=== PATIENT | female | born 1930 | race Caucasian/White ===

== ENCOUNTER 2017-08-28 10:32 | Emergency (ER) | payer MEDICARE, OTHER ==
[~2017-08-28] VITALS: Ht 162.6 cm; Wt 67.1 kg
[2017-08-28] MEDS ORDERED: LEVOTHYROXINE88 MCG PO (10:58)
[2017-08-28] MEDS ORDERED: MELOXICAM7.5 MG PO (12:42)
[2017-08-28] MEDS ORDERED: BACTRIM DS TAB1 EACH PO (12:42)
== END 2017-08-28 12:45 | disposition home or self-care (01) ==
LOC: ED 10:32
DX: M79.671 Pain in right foot (principal); L03.115 Cellulitis of right lower limb; M17.11 Unilateral primary osteoarthritis, right knee; E03.9 Hypothyroidism, unspecified; Z87.891 Personal history of nicotine dependence; Z79.899 Other long term (current) drug therapy
CPT/HCPCS: 73610; 80048; 85025; 93971; 99284

== ENCOUNTER 2018-03-07 11:30 | Inpatient (IN) | payer MEDICARE, OTHER ==
[~2018-03-07] VITALS: Ht 162.6 cm; Wt 73.9 kg
--- NOTE | 2018-03-07 09:30 | NUR ---
SPOKE WITH PATIENT REGARDING SWING BED STAY. SHE IS AWARE SHE IS STAYING FOR THERAPY TO GET STRONGER TO BE SAFE AT HOME. 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 SHE HAS NO QUESTIONS AT THIS TIME.
[~2018-03-07 11:30] MED LIST: BACTRIM DS TAB1 EACH PO; LEVOTHYROXINE88 MCG PO; MELOXICAM7.5 MG PO; XALATAN2.5 ML OU
--- NOTE | 2018-03-07 13:00 | NUR ---
PT STATUS CHANGED TO SWING BED.
--- NOTE | 2018-03-07 13:00 | NUR ---
REPORT RECEIVED FROM MIRZA SOTO. PT UP IN CHAIR WITH FAMILY AT BEDSIDE. DENIES PAIN. DENIES NEEDS. CALL LIGHT IN REACH.
--- NOTE | 2018-03-07 13:08 | NUR ---
PT UP AMBULATING WITH P.T. USING WALKER. DAUGHTER PRESENT, GAVE ME BACKGROUND ON PT. CONCERNED ABOUT PT CONTINUING TO LIVE ALONE IN 2-STORY HOME ALONE. IT APPEARS A CONVERSATION ABOUT MOVING DAUGHTER GOT NO WHERE. CALLED HER MOTHER "DETERMINED" AND "SET IN HER WAYS", BUT KIND OF FIERY! PT REQUESTED A COME BACK A A LATER TIME. SHE WILL BE SWING BED STATUS. WILL FOLLOW NEEDED
--- NOTE | 2018-03-07 18:35 | NUR ---
GOOD DAY. CHANGED TO SWING. HERE FOR PHYSICA THERAPY. NO IV. SBA WITH FWW. WEIGHT BEARING TOLERATED. OXYCODONE FOR PAIN.
--- NOTE | 2018-03-07 19:00 | NUR ---
IN ROOM FOR REPORT, PT IS AWAKE IN BED. SHE DENIES PAIN AT THIS TIME. CALL LIGHT IS WITHIN REACH.
--- NOTE | 2018-03-07 20:54 | NUR ---
IN ROOM TO ADMINISTER MEDICATIONS AND ASSESS PT. SHE DENIES PAIN AT THIS TIME. BRUISING AND ABRAISON NOTED ON LEFT FOREARM. FRESH WATER AT BEDSIDE AND PT DENIES FURTHER NEEDS. CALL LIGHT IS WITHIN REACH.
--- NOTE | 2018-03-07 23:00 | NUR ---
PT IS AWAKE IN BED, SHE DENIES PAIN AND FURTHER NEEDS AT THIS TIME. CALL LIGHT IS WITHIN REACH.
--- NOTE | 2018-03-08 01:11 | NUR ---
PT IS RESTING WITH EYES CLOSED, RESPIRATIONS ARE EVEN AND NONLABORED. CALL LIGHT IS WITHIN REACH.
--- NOTE | 2018-03-08 02:06 | NUR ---
HELPED PT TO RESTROOM AND BACK TO BED, SHE DENIES FURTHER NEEDS AT THIS TIME. CALL LIGHT IS WITHIN REACH.
--- NOTE | 2018-03-08 03:56 | NUR ---
PT IS RESTING WITH EYES CLOSED, RESPIRATIONS ARE EVEN AND NONLABORED. CALL LIGHT IS WITHIN REACH.
--- NOTE | 2018-03-08 05:20 | NUR ---
PT IS RESTING WITH EYES CLOSED, RESPIRATIONS ARE EVEN AND NONLABORED. CALL LIGHT IS WITHIN REACH.
--- NOTE | 2018-03-08 05:45 | NUR ---
PT DENIED NEEDING PAIN MEDICATION THROUGH THE NIGHT AND JUST HAD SCHEDULED TYLENOL. SHE AMBULATES SBA WITH FWW. SHE IS ON SWING BED WORKING WITH PT AND OT. SHE HAS NO IV ACCESS AND IS ON A REGULAR DIET. PT HAD AN UNEVENTFUL NIGHT.
--- NOTE | 2018-03-08 06:36 | NUR ---
IN ROOM TO ADMINISTER MEDICATION. PT DENIES FURTHER NEEDS. CALL LIGHT IS WITHIN REACH.
--- NOTE | 2018-03-08 07:30 | NUR ---
REPORT RECEIVED FROM NATALIIA RN, PATIENT RESTING WITH EYES CLOSED, NO S/S OF DISTRESS AT THIS TIME. BED IN THE LOW POSITION AND RAILS UP. CALL LIGHT WITHIN REACH.
--- NOTE | 2018-03-08 09:15 | NUR ---
PATIENT SITTING UP IN BED AFTER COMING BACK FROM THE BATHROOM, SHE HAD A LOOSE BM SO MIRALAX WAS HELD THIS AM. HER PAIN CURRENTLY IS TOLERABLE AT 4/10 AND SHE IS READY TO WORK WITH PHYSICAL THERAPY. CMS INTACT TO LEFT LEG. 2+ EDEMA TO ANKLES AND LOWER LEGS.
--- NOTE | 2018-03-08 10:00 | NUR ---
O.T. IN TO HELP PATIENT WITH SHOWERING AT THIS TIME. PATIENT RECENTLY RECEIVED TYLENOL AND CURRENTLY DENIES ANY PAIN AND HAS NO OTHER NEEDS. PRN PHYSICAL THERAPIST ASSISTING WITH THE SHOWER.
--- NOTE | 2018-03-08 11:45 | NUR ---
SPOKE WITH PT, SHE IS WATCHING TV AND EATING. DENIES C/O. WANTING TO GO HOME WHEN ABLE.
--- NOTE | 2018-03-08 15:27 | NUR ---
PATIENT'S DAUGHTER HERE TO VISIT, SHE WAS CURIOUS WHY SHE WASN'T GETTING THE OXYCODONE, WHEN PATIENT WAS SWITCHED OVER TO SWING BED THE OXYCODONE WAS TAKEN OFF OF SCHEDULED TO PRN. SHE REFUSED PAIN MEDICATION FOR ME THIS AM BUT IS WANTING TO TAKE IT NEXT TIME SHE GETS UP TO WALK WITH PHYSICAL THERAPY.
--- NOTE | 2018-03-08 18:21 | NUR ---
PATIENT WORKED WITH PHYSICAL THERAPY TWICE TODAY AND WAS OFFERED OXYCODONE BOTH TIMES WHICH PATIENT REFUSED HER MEDICATION BOTH TIME STATING THAT SHE WAS COMFTORABLE AND DIDN'T NEED THE NARCOTICS. TYLENOL WAS THE ONLY FORM OF PAIN MEDICATION THE PATIENT RECEIVED TODAY. WHEN HER DAUGHTER ARRIVED AT DINNER TIME PATIENT STATED THAT SHE NEEDED THE PAIN MEDICATION AND DIDN'T GET OFFERED IT. ESSENCE NOTIFIED AND WILL BE SURE THAT TOMMORROW PATIENT RECEIVES OXYCODONE BEFORE WORKING WITH PHYSICAL THERAPY. PATIENT REMAINS A SWING BED PATIENT AND IS STEADY WITH FWW. CMS IS INTACT TO LEFT LEG WITH EDEMA 1+ IN HER LOWER LEGS.
--- NOTE | 2018-03-08 19:23 | NUR ---
RECEIVED REPORT FROM CHARLES GOFF. WHITEBOARD UPDTAED. pt AWAKE AND ALERT, STATES PAIN IS 3/10. CALL LIGHT WITHIN REACH.
--- NOTE | 2018-03-08 21:23 | NUR ---
VITALS AND I&OS DONE AND CHARTED. HELPED PT TO THE BATHROOM AND BACK TO BED WITH HER FWW. FRESH ICE WATER GIVEN. BEDSIDE TABLE AND CALL LIGHT IN REACH.
--- NOTE | 2018-03-08 22:54 | NUR ---
ASSESSMENT AND MEDICATIONS DUE. ASSESSMENT DONE. STATES PAIN IS 2/10. REFUSES PAIN MEDICATION AT THIS TIME. MEDICATIONS GIVEN (SEE MAR). CALL LIGHT WITHIN REACH. NO FURTHER REQUESTS AT THIS TIME.
--- NOTE | 2018-03-09 00:59 | NUR ---
ROUNDED ON pt. RESTING WITH EYES CLOSED, RESPIRATIONS REGULAR. RATE = 20. CALL LIGHT WITHIN REACH.
--- NOTE | 2018-03-09 01:48 | NUR ---
CALL LIGHT ON. ASSISTED TO THE TOILET AND BACK TO BED. SETTLED IN BED. NO FURTHER REQUESTS AT THIS TIME. CALL LIGHT WITHIN REACH.
--- NOTE | 2018-03-09 03:40 | NUR ---
HELPED PT FROM THE BATHROOM BACK TO BED WITH HER FWW. BEDSIDE TABLE AND CALL LIGHT IN REACH.
--- NOTE | 2018-03-09 05:03 | NUR ---
ROUNDED ON pt. RESTING WITH EYES CLOSED, RESPIRATIONS REGULAR. RATE = 18. CALL LIGHT WITHIN REACH.
--- NOTE | 2018-03-09 06:26 | NUR ---
pt RESTED MOST OF NIGHT. PAIN MEDS X1. SBA, FWW TO TOILET. CMS INTACT. USES CALL LIGHT APPROPRIATELY.
--- NOTE | 2018-03-09 11:24 | NUR ---
patient up ambulating with physical therapy, pain currently 6/10 while up ambulating with fww and the physical therapist.
--- NOTE | 2018-03-09 15:21 | NUR ---
PATIENT IS VISITING WITH HER DAUGHTER, SHE STATES THAT PAIN IS CURRENTLY AT A 2/10, CMS TO LEFT HIP IS INTACT. SHE HAS NO QUESTIONS OR CONCERNS AT THIS TIME.
--- NOTE | 2018-03-09 19:10 | NUR ---
SHIFT REPORT RECEIVED FROM DAY SHIFT RN AT BEDSIDE. PT AWAKE, A/OX3, RR EVEN AND UNLABORED. PT DENIES NEEDS AT THIS TIME, CALL LIGHT IN REACH.
--- NOTE | 2018-03-09 20:56 | NUR ---
VITALS AND I&OS DONE AND CHARTED. FRESH WATER GIVEN. HELPED PT TO THE BATHROOM AND BACK TO BED WITH HER FWW. BEDSIDE TABLE AND CALL LIGHT IN REACH.
--- NOTE | 2018-03-09 21:30 | NUR ---
ASSESSMENT COMPLETE. SCHEDULED MEDICATIONS GIVEN. ANGUS HELD PT HAD RECENT BM THIS EVENING. PT A/O X3, REPORTS 2/10 PAIN. SCHEDULED TYLENOL GIVEN. PT IN BED, RR EVEN AND UNLABORED. DENIES NEEDS AT THIS TIME. CALL LIGHT IN REACH.
--- NOTE | 2018-03-09 23:30 | NUR ---
PT RESTING IN BED, EYES CLOSED, RR EVEN AND UNLABORED. CALL LIGHT IN REACH.
--- NOTE | 2018-03-10 00:45 | NUR ---
HELPED PT TO THE BATHROOM AND BACK TO BED WITH HER FWW. BEDSIDE TABLE AND CALL LIGHT IN REACH.
--- NOTE | 2018-03-10 01:55 | NUR ---
PT RESTING IN BED, EYES CLOSED, RR EVEN AND UNLABORED. CALL LIGHT IN REACH.
--- NOTE | 2018-03-10 03:17 | NUR ---
PT RESTING IN BED, EYES CLOSED. RR EVEN AND UNLABORED. CALL LIGHT IN REACH.
--- NOTE | 2018-03-10 05:57 | NUR ---
scheduled thyroid medication given.
--- NOTE | 2018-03-10 06:13 | NUR ---
PT HAD GOOD NIGHT, SLEPT FOR MOST OF THE EVENING. PT A/O X3, PAIN WELL CONTROLLED WITH PRN PAIN MEDICATIONS. PT ON REGULAR DIET TOLERATING WELL, NO NAUSEA, ACTIVE BOWEL TONES. PT SBA W/ AMBULATION, USES CALL LIGHT APPROPERIATELY. CMS INTACT. VSS, PT ON RA. PT IS SWING BED.
--- NOTE | 2018-03-10 07:06 | NUR ---
PT IN BED, RECIEVED BEDSIDE REPORT FROM SYDNEE. PERSONAL SUPPLIES AND CALL LIGHT IN REACH.
--- NOTE | 2018-03-10 08:48 | NUR ---
PT SITTING UP IN BED WATCHING TV. GAVE AM MEDICATIONS. PT RATED PAIN TO LEFT HIP 3/10. DENIED NEED FOR PAIN MEDICATION ASIDE FROM SCHEDULED TYLENOL AT THIS TIME. PERSONAL SUPPLIES AND CALL LIGHT IN REACH.
--- NOTE | 2018-03-10 11:03 | NUR ---
PT IN BED. REQUESTED OXYCODONE FOR PREMEDICATION FOR PHYSICAL THERAPY. GAVE OXYCODONE 5 MG PO PRN. PT CURRENTLY RATES PAIN TO LEFT HIP 3/10 AT REST. PROVIDED FRESH ICE WATER.
--- NOTE | 2018-03-10 11:25 | NUR ---
PT UP IN HALLWAY AMBULATING WITH FWW WITH KRISTY, PHYSICAL THERAPY. TOLERATING WELL.
--- NOTE | 2018-03-10 13:22 | NUR ---
PT INCONTINENT OF URINE, MODERATE AMOUNT, IN BED, THEN UP WITH FWW WITH STANDBY ASSIST TO BATHROOM, VOIDED IN HAT. PT THEN BACK TO BED WITH FWW WITH STANDBY ASSIST AFTER LINNENS WERE CHANGED. PT PROVIDED WITH FRESH ICE WATER. PT ATE 75% OF LUNCH. PERSONAL SUPPLIES AND CALL LIGHT IN REACH. PT DENIED OTHER NEEDS.
--- NOTE | 2018-03-10 14:49 | NUR ---
PT GIVEN SCHEDULED TYLENOL. RATED PAIN TO LEFT HIP 2-3. DENIED NEEDS. RESTING IN BED WATCHING TV. PERSONAL SUPPLIES AND CALL LIGHT IN REACH.
--- NOTE | 2018-03-10 16:45 | NUR ---
PT UP TO BATHROOM FROM BED USING FWW, WITH STANDBY ASSIST. PT VOIDED 250 ML CLEAR YELLOW URINE IN HAT, THEN AMBULATED BACK TO BED WITH FWW WITH STANDBY ASSIST. PT PROVIDED WITH FRESH ICE WATER. PT RATED PAIN TO LEFT HIP 3/10, DENIED NEED FOR PAIN MEDICATION AT THIS TIME. REPORTED THAT PAIN IS "WELL CONTROLLED". PERSONAL SUPPLIES AND CALL LIGHT IN REACH.
--- NOTE | 2018-03-10 17:57 | NUR ---
PT MOVING WELL WITH FWW WITH STANDBY ASSIST, UP IN ROOM TO BATHROOM NUMEROUS TIMES, AND PT ALSO AMBULATED IN HALLS WITH PHYSICAL THERAPY. PT DID TAKE OXYCODONE 5 MG PO PRN PRIOR TO PHYSICAL THERAPY FOR PREMEDICATION. DENIED NEED FOR PRN ANALGESIC ASIDE FROM THIS. CMS TO LLE INTACT, PEDAL PULSE STRONG. TOLERATING REGULAR DIET WELL. PT HAS 2 + EDEMA TO BLE. BOWEL TONES ACTIVE X 4 QUADRANTS, BUT NO BM THIS SHIFT. PT HAD QS URINE OUTPUT. HAS NO IV ACCESS. PT ALERT, ORIENTED X 4. USED CALL LIGHT APROPRIATELY THIS SHIFT.
--- NOTE | 2018-03-10 19:00 | NUR ---
SHIFT REPORT RECEIVED FROM DAY SHIFT RN AT BEDSIDE. PT AWAKE LAYING IN BED, RR EVEN AND UNLABORED. PT RATES PAIN 1-2/10, DENIES NEEDS AT THIS TIME. CALL LIGHT IN REACH, DENIES FURTHER NEEDS.
--- NOTE | 2018-03-10 20:06 | NUR ---
ASSESSMENT COMPLETE. JUNE TOBACCO EDUCATOR COMPLETED VS AND I/O'S, BOTH STABLE. PT A/O X3, RATES PAIN 3/10, SCHEDULED TYLENOL GIVEN. PT PROVIDED UPDATED PLAN OF CARE, PT VERBALIZED UNDERSTANDING. CMS INTACT BILATERALLY, PEDAL PULSES ALSO NOTED BILATERALLY. PT DENIES CHEST PAIN, DIZZINESS, AND NAUSEA. +1 BLE EDEMA NOTED. PT DENIES FURTHER NEEDS, CALL LIGHT IN REACH.
--- NOTE | 2018-03-10 20:45 | NUR ---
HELPED PT FROM THE BATHROOM TO HER BED. VITALS AND I&OS DONE AND CHARTED. FRESH ICE WATER GIVEN. PT NEEDS NOTHING MORE AT THIS TIME.
--- NOTE | 2018-03-10 21:21 | NUR ---
ROUNDED CHARGE. PATIENT IS RESTING IN BED WATCHING TV. PATIENT DENIES ANY COMMENTS, QUESTIONS, OR CONCERNS. CALL LIGHT IN REACH.
--- NOTE | 2018-03-10 21:29 | NUR ---
THIS RN ASSISTED PATIENT TO RESTROOM SBA WITH FWW. NEW ATTENDS PROVIDED TO PATIENT. PATIENT LAYING SAFELY BACK INTO BED WITH CALL LIGHT WITHIN REACH. NO MORE NEEDS AT THIS TIME.
--- NOTE | 2018-03-10 23:27 | NUR ---
PT RESTING IN BED, EYES CLOSED. RR EVEN AND UNLABORED. CALL LIGHT IN REACH. NO DISTRESS NOTED.
--- NOTE | 2018-03-10 23:28 | NUR ---
HELPED PT TO THE BATHROOM AND BACK TO BED. BEDSIDE TABLE AND CALL LIGHT IN REACH.
--- NOTE | 2018-03-11 00:05 | NUR ---
ASSESSMENT COMPLETE. MEDS ALREADY GIVEN BY FRANCISCO JAVIER SOTO. PT A/O X3, DROWSY BUT [place] AND ABLE TO FOLLOW COMMANDS. PAIN VERY WELL CONTROLLED, NO FURTHER NEEDS. CALL LIGHT IN REACH.
--- NOTE | 2018-03-11 00:05 | NUR ---
ASSESSMENT COMPLETE. PT RESTING IN BED, RR EVEN AND UNLABORED. PT RATES PAIN 1/10. NO FURTHER NEEDS AT THIS TIME. CALL LIGHT IN REACH.
--- NOTE | 2018-03-11 01:10 | NUR ---
HELPED PT TO THE BATHROOM AND BACK TO BED WITH HER FWW. BEDSIDE TABLE AND CALL LIGHT IN REACH. PT NEEDS NOTHING ELSE AT THIS TIME.
--- NOTE | 2018-03-11 02:01 | NUR ---
PT RESTING IN BED, RR WNL AND UNLABORED. EYES CLOSED, NO DISTRESS NOTED. CALL LIGHT IN REACH.
--- NOTE | 2018-03-11 02:22 | NUR ---
PT SWING BED, VSS. PT A/O X3. PAIN WELL CONTROLLED WITH SCHEDULED TYLENOL AND PRN OXY AT TIMES WHEN WORKING WITH PT. PT 1PA W/ WALKER. PT ON REGULAR DIET, TOLERATING WELL, ACTIVE BOWEL TONES WITH NO NAUSEA THIS SHIFT. VOIDING QS URINE OUPUT.PLAN IS FOR PT TO REGAIN STRENGTH TO LEVEL PRIOR TO FALL, TENATIVE DISCHARGE THIS SUNDAY. PT USES CALL LIGHT APPROPERIATELTY.
--- NOTE | 2018-03-11 02:45 | NUR ---
PT AWAKE IN BED, RR EVEN AND UNLABORED. PT REQUESTING TO GO TO THE BATHROOM. THIS RN TO ASSIST PT SBA WITH WALKER TO VOID. PT INSTRUCTED TO USE CALL LIGHT ONCE READY TO RETURN TO BED. PT VERBALIZED UNDERSTANDING, CORD IN REACH.
--- NOTE | 2018-03-11 04:30 | NUR ---
HELPED PT BACK TO BED WITH HER FWW. BEDSIDE TABLE AND CALL LIGHT WITHIN REACH. PT NEEDS NOTHING MORE AT THIS TIME.
--- NOTE | 2018-03-11 05:19 | NUR ---
PT RESTING IN BED, EYES CLOSED, RR EVEN AND UNLABORED. PT ON RA. NO DISTRESS NOTED. CALL LIGHT IN REACH.
--- NOTE | 2018-03-11 05:50 | NUR ---
I&OS DONE AND CHARTED. ROOM CLEANED UP, GARBAGES EMPTIED.
--- NOTE | 2018-03-11 05:59 | NUR ---
scheduled thyroid medication given.
--- NOTE | 2018-03-11 07:17 | NUR ---
RECIEVED BEDSIDE REPORT FROM CHARLES RANDHAWA. PT IN BED, AWAKE, ALERT. DENIED NEED FOR PAIN MEDICATION AT THIS TIME. PERSONAL SUPPLIES AND CALL LIGHT IN REACH.
--- NOTE | 2018-03-11 08:26 | NUR ---
PT C/O 09/18 PAIN TO LEFT HIP. GAVE SCHEDULED MEDICATIONS AND OXYCODONE 5 MG PO PRN. PT SITTING UP IN BED, EATING BREAKFAST. DAUGHTER AT BEDSIDE. PT DENIES OTHER NEEDS AT THIS TIME. PERSONAL SUPPLIES AND CALL LIGHT IN REACH.
--- NOTE | 2018-03-11 09:19 | NUR ---
PATIENT SITING UP IN BED. SISTER IN ROOM. VITAL SIGNS AND I&O DONE. ICE WATER GIVEN. CALL LIGHT WITHIN REACH. NO OTHER NEEDS AT THIS TIME
--- NOTE | 2018-03-11 10:23 | NUR ---
SENT SCRIPT WITH CHART NOTES TO IN HOME MED[facility] FOR FRONT WHEELED WALKER.
--- NOTE | 2018-03-11 11:09 | NUR ---
PT SITTING UP IN RECLINER, LEGS ELEVATED. PT HAS PERSONAL SUPPLIES AND CALL LIGHT IN REACH. PT DENIED NEEDS. REPORTED PAIN TO LEFT HIP 2/10.
--- NOTE | 2018-03-11 12:44 | NUR ---
PT WORKING WITH PHYSICAL THERAPY, GOGO, WALKED UP AND DOWN STAIRS IN THERAPY ROOM USING THE HAND RAILS, WITH GOGO ASSISTING WITH GAIT BELT. APPEARED TO TOLERATE WELL. REPORTED PAIN TO LEFT HIP 5/10 WHILE DOING STAIRS. GRANDDAUGHTER IN THERAPY ROOM WITH PT.
--- NOTE | 2018-03-11 13:42 | NUR ---
PATIENT IN BED, FAMILY IN ROOM. FRESH WATER GIVEN. CALL LIGHT IN REACH. NO FURTHER NEEDS AT THIS TIME.
--- NOTE | 2018-03-11 14:59 | NUR ---
PT IN BED, SITTING UP, WATCHING TV. PROVIDED FRESH ICE WATER. PT RATED PAIN TO LEFT HIP 2/10, GAVE SCHEDULED TYLENOL. PT HAS PERSONAL SUPPLIES AND CALL LIGHT IN REACH. DENIED OTHER NEEDS.
--- NOTE | 2018-03-11 17:35 | NUR ---
PATIENT SITTING UP IN BED WATCHING TV. FRESH WATER GIVEN. CALL LIGHT IN REACH. NO FURTHER NEEDS AT THIS TIME.
--- NOTE | 2018-03-11 18:10 | NUR ---
PT UP WITH 1 PERSON ASSIST WITH FWW. CMS TO LLE INTACT, PEDAL PULSES EASILY PALPATED, STRONG. PT HAS 2 + EDEMA TO BLE. PT RECIEVED OXYCODONE 5 MG X 2 DOSES THIS SHIFT. APETITE FAIR TO GOOD. URINE OUTPUT QUANTITY SUFFICIENT. PT VISITED WITH HER DAUGHTER AND GRANDDAUGHTER THIS SHIFT. PARTICIPATED IN PHYSICAL THERAPY. DID STAIRS IN THERAPY ROOM WITH Amee BOWENS AQUATICS LIFEGUARD, TOLERATED WELL.
--- NOTE | 2018-03-11 19:25 | NUR ---
SHIFT REPORT RECEIVED FROM DAY SHIFT RN AT BEDSIDE. PT AWAKE, RR EVEN AND UNLABORED. PT DENIES NEEDS, A/O X3. CALL LIGHT IN REACH.
--- NOTE | 2018-03-11 22:39 | NUR ---
ROUNDED ON PATIENT FOR MEDICATION ADMINISTION PER REQUEST OF PRIMARY RN, SYDNEE. PATIENT RETURING TO BED AFTER USING RESTROOM BY SBA WITH FWW. PATIENT REPORTS "2/10" PAIN IN LEFT HIP, SCHEDULED TYLENOL PROVIDED. CALL LIGHT WITHIN REACH. NO MORE NEEDS AT THIS TIME.
--- NOTE | 2018-03-12 01:51 | NUR ---
PT RESTING IN BED, EYES CLOSED, RR EVEN AND UNLABORED. PT APPEARS COMFORTABLE, NO DISTRESS NOTED. CALL LIGHT IN REACH.
--- NOTE | 2018-03-12 03:27 | NUR ---
PT AWAKE, RR EVEN AND UNLABORED. PT DENIES FURTHER NEEDS, CALL LIGHT IN REACH.
--- NOTE | 2018-03-12 04:39 | NUR ---
PT SLEPT ON AND OFF DURING THE NIGHT. PT SWINGBED, USES CALL LIGHT APPROPERIATELY. A/O X3. PAIN WELL CONTROLLED WITH SCHEDULED TYLENOL. USES PRN PAIN MEDICATIONS AT TIMES WHEN WORKING WITH PT. PT ON REGULAR DIET, TOLERATING WELL, NO NAUSEA THIS SHIFT. VOIDING QS URINE.
--- NOTE | 2018-03-12 06:02 | NUR ---
SCHEDULED THYROID MEDICATION GIVEN. PT RATES PAIN 1-2. DENIES NEEDS. CALL LIGHT IN REACH.
--- NOTE | 2018-03-12 07:08 | NUR ---
RECIEVED BEDSIDE REPORT FROM CHARLES RANDHAWA. PT IN BED, PROVIDED WITH WARM BLANKET AND FRESH ICE WATER. PT REPORTED PAIN INCREASED TO 3/10, GAVE OXYCODONE 5 MG PO PRN PER PT REQUEST.
--- NOTE | 2018-03-12 09:36 | NUR ---
PATIENT UP TO BATHROOM AND BACK TO BED, SBA FWW. FRESH WATER GIVEN. SHOWER LATER TODAY. CALL LIGHT IN REACH. NO FURTHER NEEDS AT THIS TIME.
--- NOTE | 2018-03-12 13:29 | NUR ---
PATIENT IN BED RESTING WITH EYES CLOSED. FRESH WATER GIVEN. CALL LIGHT IN REACH. NO FURTHER NEEDS AT THIS TIME.
--- NOTE | 2018-03-12 14:46 | NUR ---
PT AMBULATED GOOD LENGTH OF HALLS WITH PHYSICAL THERAPY. IN BED NOW WATCHING TELEVISION. ADMINISTERED TYLENOL ORDERED. NO NEEDS AT THIS TIME.
--- NOTE | 2018-03-12 15:11 | NUR ---
PATIENT UP TO SHOWER CHAIR AND BACK TO BED SBA. PATIENT MOSTLY INDEPENDENT IN SHOWER. LINENS CHANGED. NEW GOWN AND DEPENDS PROVIDED. CALL LIGHT IN REACH. NO FURTHER NEEDS AT THIS TIME.
--- NOTE | 2018-03-12 17:24 | NUR ---
SWING BED PATIENT. LIVES AT HOME ALONE. ROSE FWW. WORKING WITH PT/OT. NO IV. OXYCODONE GIVEN ONCE AT 0700. TYLENOL SCHEDULED. REGULAR DIET. TOLERATING WELL. INCENTIVE SPIROMETER. HOME SUNDAY.
--- NOTE | 2018-03-12 18:57 | NUR ---
RECIEVED CHANGE OF SHIFT REPORT FROM CHARLES GARCIA. PATIENT RESTING AWAKE IN BED. PATIENT REPORTS "3/10" PAIN, DENIES NEEDING PAIN MEDICATION AT THIS TIME. CALL LIGHT WITHIN REACH. WHITE BOARD UPDATED. NO MORE NEEDS AT THIS TIME.
--- NOTE | 2018-03-12 20:49 | NUR ---
ASSESSMENT COMPLETE. VITALS ASSESSED AND RECORDED. MEDICATIONS ADMINSTERED PER ORDER. PATIENT DENIES SOB, DIFFICULTY BREATHING, OR CHEST PAIN. PATIENT DENIED BOWEL REGIMEN MEDICATIONS SHES STATES SHE HAS HAD "2 LIQUID STOOLS TODAY". FRESH WATER BROUGHT TO PATIENT. CALL LIGHT WITHIN REACH. NO MORE NEEDS AT THIS TIME. PATIENT REPORTS "2/10" PAIN, SCHEDULED PAIN MEDICATION PROVIDED, DENIED NEED FOR PRN PAIN MEDICATION AT THIS TIME.
--- NOTE | 2018-03-13 00:30 | NUR ---
ROUNDED ON PATIENT RESTING IN BED WITH EYES CLOSED, RESPIRATORY RATE IS EVEN AND UNLABORED. RR: 20. POSSESSIONS AT BEDSIDE. CALL LIGHT WITHIN REACH.
--- NOTE | 2018-03-13 01:13 | NUR ---
ROUNDED ON PATIENT LAYING BACK INTO BED AFTER BEING ASSISTED BY LEG ASSEMBLER, RAVI, A SBA WITH FWW. PATIENT VOIDED. PATIENT REPORTS "2/10" PAIN, DENIES NEEDING PRN PAIN MEDICATION AT THIS TIME. CALL LIGHT WITHIN REACH. NO MORE NEEDS AT THIS TIME.
--- NOTE | 2018-03-13 02:51 | NUR ---
ROUNDED ON PATIENT RESTING IN BED WITH EYES CLOSED. RESPIRATORY RATE, EVEN AND UNLABORED. RR: 18. CALL LIGHT WITHIN REACH.
--- NOTE | 2018-03-13 04:00 | NUR ---
ROUNDED ON PATIENT TO ASSIST PATIENT TO RESTROOM SBA WITH FWW. PATIENT SAFELY BACK INTO BED. PATIENT REPORTS PAIN A "3/10" WITH AMBULATION, DENIES WANTING PRN PAIN MEDICATION AT THIS TIME. FRESH WATER BROUGHT TO PATIENT. CALL LIGHT WITHIN REACH. NO MORE NEEDS AT THIS TIME.
--- NOTE | 2018-03-13 05:36 | NUR ---
SWING BED. SLEPT WELL THROUGHT OUT THE NIGHT. USES CALL LIGHT APPROPRIATELY. SBA WITH FWW. REGULAR DIET. PT/OT. DENIED NEEDING PRN PAIN MEDICATION DURING THIS SHIFT.
--- NOTE | 2018-03-13 06:32 | NUR ---
SCHEDULED MEDICATION PER MAY ORDER PROVIDED. PATIENT REPORTS "4/10" PAIN IN LEFT HIP WITH VISIBLE GRIMACING, PRN PAIN MEDICATION PROVIDED. X2 WARM BLANKETS PROVIDED PER PATIENT REQUEST. PATIENT AMBULATED TO RESTROOM SBA WITH FWW, RETURNED SAFELY BACK INTO BED. CALL LIGHT WITHIN REACH, EDUCATED PATIENT ON ITS USE, PATIENT EXPRESSED UNDERSTANDING. NO MORE NEEDS AT THIS TIME.
--- NOTE | 2018-03-13 07:15 | NUR ---
REPORT RECEIVED FROM ARAVIND IN THE ROOM, PATIENT IS AWAKE AND HAS NO QUESTIONS OR CONCERNS, BED IS IN THE LOW POSTITION AND RAILS ARE UP. CALL LIGHT WITHIN REACH. SHE HAD A PAIN PILL AT 0600 AND PAIN IS NOW TOLERABLE.
--- NOTE | 2018-03-13 07:34 | NUR ---
PATIENT WAS AWAKE FACE WASHED. BREAKFAST WAS ORDERED, CALL LIGHT IN REACH
--- NOTE | 2018-03-13 07:56 | NUR ---
PATIENT AM MEDICATION GIVEN AND BREAKFAST ORDERED. PATIENT WANTS TO STAY IN BED FOR NOW BUT WILL GET UP AFTER BREAKFAST. SHE HAS GOOD CMS TO BOTH LEGS AND PAIN IS CURRENTLY AT A 2/10.
--- NOTE | 2018-03-13 09:40 | NUR ---
PATIENT AMBULATING IN THE HALLWAY WITH PHYSICAL THERAPY, PATIENT STATES PAIN IS AT A 2/10.
--- NOTE | 2018-03-13 12:48 | NUR ---
PATIENT'S PAIN AT A 3/, OXYCODONE GIVEN PO AT THIS TIME FOR PHYSICAL THERAPY AT 1400
--- NOTE | 2018-03-13 14:11 | NUR ---
PT SITTING UP IN BED, ALERT AND ORIENTED. SEEMED WELL RESTED, CHARLES GOFF GAVE HER PAIN MEDS FOR UP COMING P.T. GOOD VISIT, PT MENTIONED LAST YEAR WAS A TOUGH ONE ON HER AND HER FAMILY. STILL MISSES HER - WHEN SHE WAS A TEENAGER. PT SPUNKY, DISAPPOINTED ABOUT THINGS SHE IS MISSING OUT ON. PT REQUESTED PRAYER, WILL FOLLOW NEEDED
--- NOTE | 2018-03-13 14:42 | NUR ---
PATIENT UP AMBULATING WITH PHYSICAL THERAPY, PAIN LEVEL CURRENTLY 2.5/10
--- NOTE | 2018-03-13 16:17 | NUR ---
PATIENT TALKING ON THE PHONE GAVE HER SOME TYLENOL PO AT THIS TIME FOR PAIN CONTROL, SHE DENIES NEEDS AT THIS TIME
--- NOTE | 2018-03-13 17:20 | NUR ---
PATIENT'S WATER FILLED UP FOR HER AND PATIENT ASSISTED UP TO THE BATHROOM. PATIENT REMAINS STEADY ON HER FEET WITH HER FWW AND CMS IS INTACT TO THE LEFT LEG.
--- NOTE | 2018-03-13 19:23 | NUR ---
IN ROOM FOR REPORT, PT IS AWAKE IN BED WATCHING TV. SHE DENIES NEEDS AT THIS TIME. CALL LIGHT IS WITHIN REACH.
--- NOTE | 2018-03-13 20:18 | NUR ---
ASSESSMENT COMPLETE AND MEDICATIONS ADMINISTERED. PT REPORTS PAIN TOLERABLE AT 2/10. SHE DENIES FURTHER NEEDS AT THIS TIME. CALL LIGHT IS WITHIN REACH.
--- NOTE | 2018-03-13 22:00 | NUR ---
PT IS RESTING WITH EYES CLOSED, RESPIRATIONS ARE EVEN AND NONLABORED. CALL LIGHT IS WITHIN REACH.
--- NOTE | 2018-03-13 22:58 | NUR ---
PT IS RESTING WITH EYES CLOSED, RESPIRATIONS ARE EVEN AND NONLABORED. CALL LIGHT IS WITHIN REACH.
--- NOTE | 2018-03-14 00:33 | NUR ---
HELPED PT BACK TO BED FROM [place]STROO SBA, REMINDED HER TO USE CALL LIGHT. SHE DENIES NEEDS AT THIS TIME. CALL LIGHT IS WITHIN REACH.
--- NOTE | 2018-03-14 02:16 | NUR ---
PT IS RESTING WITH EYES CLOSED, RESPIRATIONS ARE EVEN AND NONLABORED. CALL LIGHT IS CLOSE.
--- NOTE | 2018-03-14 04:04 | NUR ---
STOOD BY THE PT WENT BACK TO BED FROM THE BATHROOM WITH HER FWW. BEDSIDE TABLE AND CALL LIGHT IN REACH. PT NEEDS NOTHING MORE AT THIS TIME.
--- NOTE | 2018-03-14 04:40 | NUR ---
PT CALLED FOR A WARM BLANKET, SHE DENIES FURTHER NEEDS. CALL LIGHT IS CLOSE.
--- NOTE | 2018-03-14 04:41 | NUR ---
PT SLEPT MOST OF THE NIGHT. SHE DID NOT REQUEST ANY PAIN MEDICATION BUT HAS SCHEDULED TYLENOL. SHE HAS NO IV SITE. SHE IS VOIDING QS URINE. SHE STARTED MIRALAX AND SENNKOT LAST NIGHT. SHE IS ON A REGULAR DIET. SHE IS WORKING WITH PT AND IS SBA WITH FWW. PLAN IS TO DC HOME SUNDAY. SHE LIVES ALONE BUT PT STATES HER DAUGHTER WILL HELP HER.
--- NOTE | 2018-03-14 06:09 | NUR ---
WOKE PT TO ADMINISTER THYROID MEDICATION, SHE DENIES NEEDS AT THIS TIME. CALL LIGHT IS WITHIN REACH.
--- NOTE | 2018-03-14 08:40 | NUR ---
PATIENT IN BED WATCHING TV. BREAKFAST EATEN AND WATER REFRESHED. CALL LIGHT IN REACH. NO FURTHER NEEDS AT THIS TIME.
--- NOTE | 2018-03-14 11:26 | NUR ---
PT SITTING UP IN CHAIR TALKING ON PHONE. PT DENIES NEEDS STATES "OH I'M DOING FINE, THANK YOU". CALL LIGHT AND H20 IN REACH.
--- NOTE | 2018-03-14 14:00 | NUR ---
PT SITTING IN CHAIR, ALERT AND ORIENTED. SHE MENTIONED THAT SHE IS RESTING UP FOR P.T. HAD GOOD VISIT-PT WAS WILLING TO TALK ABOUT CHANGES SHE FEELS SHE NEEDS TO MAKE IN HER LIFE. SELLING HER HOME AND MOVING INTO TOWN FROM [place]. ASKED ME ABOUT ASSISTED LIVING OPTIONS, SHARED SOME WITH HER, I COULD TELL SHE WAS STILL TRYING TO TALK HERSELF INTO THINKING THIS IS A GOOD THING.EXTENDED A BLESSING, WILL FOLLOW NEEDED
--- NOTE | 2018-03-14 15:37 | NUR ---
PT RESTING IN BED WATCHING TV CALL LIGHT AND H20 IN REACH. FAMILY AT BEDSIDE. PT ASKING IF SHES DONE WORKING WITH PT. PER KRISTY Ayon. PT IS CLEARED BY HER BUT WILL WORK WITH HER ONCE MORE IN MORNING PER PT'S REQUEST. PT NOTIFIED OF THIS AND DENIES FURTHER CONCERNS SOR REQUESTS.
--- NOTE | 2018-03-14 16:45 | NUR ---
Pt resting suppine in bed, call light and h20 in reach. Pm med administered. pt denies needs or concerns. Pt continues to ambulate with steady gait with use of fww. cms intact to distal LLE. Pt eager to be discharged and hopes to be discharged in morning.
--- NOTE | 2018-03-14 17:34 | NUR ---
PT IS WANTING TO GO HOME SUNDAY IS EXPRESSING A LITTLE FEAR OF BEING HOME, BUT AGAIN STATES HER DAUGHTER WILL BE STAYING WITH HER FOR AWHILE AND SHE WANTS TO HAVE HH PT AND RN IF SHE COULD.
--- NOTE | 2018-03-14 19:21 | NUR ---
IN ROOM FOR REPORT, PT IS AWAKE IN BED. SHE DENIES NEEDS AT THIS TIME. CALL LIGHT IS WITHIN REACH.
--- NOTE | 2018-03-14 19:30 | NUR ---
ASSESSED PT SHE REPORTS SHE IS DOING WELL AND IS 1/10 FOR PAIN AT THIS TIME. SHE ANTICIPATES LEAVING TOMORROW. SHE DENIES NEEDS CALL LIGHT IS WITHIN REACH.
--- NOTE | 2018-03-14 20:42 | NUR ---
HELPED PT TO RESTROOM AND BACK TO BED, VS AND I&O COMPLETE. PT DENIES FURTHER NEEDS. CALL LIGHT IS WITHIN REACH.
--- NOTE | 2018-03-14 23:11 | NUR ---
PT IS RESTING WITH EYES CLOSED, RESPIRATIONS ARE EVEN AND NONLABORED. CALL LIGHT IS WITHIN REACH.
--- NOTE | 2018-03-15 01:25 | NUR ---
PT IS AWAKE IN BED, SHE DENIES NEEDS AT THIS TIME. CALL LIGHT IS WITHIN REACH.
--- NOTE | 2018-03-15 01:58 | NUR ---
PT IS RESTING WITH EYES CLOSED, RESPIRATIONS ARE EVEN AND NONLABORED. CALL LIGHT IS WITHIN REACH.
--- NOTE | 2018-03-15 04:03 | NUR ---
STOOD BY THE PT WENT INTO THE BATHROOM AND BACK TO BED WITH HER FWW. NEW ATTENDS GIVEN. BEDSIDE TABLE AND CALL LIGHT IN REACH. PT NEEDS NOTHING MORE AT THIS TIME.
--- NOTE | 2018-03-15 04:22 | NUR ---
PT IS RESTING WITH EYES CLOSED, RESPIRATIONS ARE EVEN AND NONLABORED. CALL LIGHT IS CLOSE.
--- NOTE | 2018-03-15 06:28 | NUR ---
ASSISTED PT TO RESTROOM AND BACK TO BED, THYROID MED ADMINISTER. SHE DENIES FURTHER NEEDS. CALL LIGHT IS CLOSE.
--- NOTE | 2018-03-15 08:00 | NUR ---
RECEIVED REPORT AT 0700, FOUND PT AWAKE IN BED. PT HAD NO NEEDS OR CONCERNS AT THAT TIME.
--- NOTE | 2018-03-15 10:00 | NUR ---
PT WORKING WITH PT. NO NEW CONCERNS NOTED.
--- NOTE | 2018-03-15 10:31 | NUR ---
SPOKE WITH PATIENT REGARDING DISCHARGE TODAY. SHE FEELS SHE IS READY TO GO HOME, LITTLE NERVOUS. STATES DAUGHTER WILL BE STAYING WITH HER FOR AWHILE TO HELP HER. DISCUSSED POSSIBLE HOME HEALTH PT/OT/RN AT DISCHARGE. SHE WOULD LIKE TO USE [facility] OUT OF [place]. DISCUSSED THEY WILL CONTACT HER AND ARRANGE FIRST VISIT AFTER SHE IS HOME. QUESTIONS ANSWERED. PATIENT WAS VERY GRATEFUL FOR HER SWING BED STAY AND FEELS SHE MADE HUGE IMPROVEMENTS. DISCUSSED SHE WILL FOLLOW UP WITH [facility] AND HER PCP. NO FURTHER QUESTIONS.
[2018-03-15] MEDS ORDERED: MAPAP500 M1 PO (10:49)
[2018-03-15] MEDS ORDERED: MIRALAX17 GM PO ×2 (10:50→11:04)
[2018-03-15] MEDS ORDERED: CALCIUM CARBON200 MG PO (10:50)
[2018-03-15] MEDS ORDERED: SENNA LAX8.6 MG PO (10:50)
[2018-03-15] MEDS ORDERED: OXYCODONE HCL5 MG PO (10:51)
[2018-03-15] MEDS ORDERED: VITAMIN D1000 UNI1 PO (10:51)
[2018-03-15] MEDS ORDERED: ACETAMINOPHEN500 MG PO (11:02)
[2018-03-15] MEDS ORDERED: TUMS200 MG PO (11:03)
[2018-03-15] MEDS ORDERED: SENOKOT8.6 MG PO (11:05)
[2018-03-15] MEDS ORDERED: VITAMIN D32000 UNIT PO (11:05)
--- NOTE | 2018-03-15 11:15 | NUR ---
SPOKE WITH DELMI FROM [facility]. SHE STATES THEY CAN ADMIT PATIENT ON SUNDAY. WILL SEND ORDER AND CLINICALS AT DISCHARGE. UPDATED PATIENT THAT [facility] WILL CALL HER AND ADMIT HER AT HOME SUNDAY. SHE IS IN AGREEMENT TO THIS.
--- NOTE | 2018-03-15 12:00 | NUR ---
WAITING FOR DAUGHTER TO ARRIVE. PT TO BE DISCHARGED AFTER THAT.
--- NOTE | 2018-03-15 12:29 | NUR ---
PT WORKING HARD WITH Amee HOPING TO BE DC'D TODAY. PLEASANT, EXTENDED A BLESSING. WILL FOLLOW NEEDED
--- NOTE | 2018-03-15 15:53 | NUR ---
CLINICALS, ORDERS FAXED FOR HOME HEALTH TO [facility] [phone]. FAX CONFIRMATION RECEIVED. SPOKE WITH DELMI IN OFFICE, THEY HAVE PROCESSED REFERRAL AND WILL CALL PATIENT AND ADMIT ON Sunday03/17/18.
== END 2018-03-15 15:19 | disposition home health service (06) | DRG 561 ==
LOC: MS 11:30
PROVIDERS: ADMIT Internal Medicine
DX: M80.052D Age-related osteoporosis with current pathological fracture, left femur, subsequent encounter for fracture with routine healing (principal); E03.9 Hypothyroidism, unspecified; Z79.899 Other long term (current) drug therapy
CPT/HCPCS: 97110; 97116; 97162; 97165; 97530; 97535; J1650

== ENCOUNTER 2019-12-23 14:02 | Emergency (ER) | payer MEDICARE, OTHER ==
[~2019-12-23] VITALS: Ht 162.6 cm; Wt 59.0 kg
[~2019-12-23 14:02] MED LIST changes: +ACETAMINOPHEN500 MG PO; +ASPIRIN EC325 MG PO; +CALCIUM CARBON200 MG PO; +CELECOXIB200 MG PO; +HEALTHYLAX17 GM PO; +MAPAP500 M1 PO; +MIRALAX17 GM PO; +OXYCODONE HCL5 MG PO; +SENNA LAX8.6 MG PO; +SENOKOT8.6 MG PO; +TUMS200 MG PO; +TYLENOL EXTRA500 MG PO; +VITAMIN D1000 UNI1 PO; +VITAMIN D32000 UNIT PO
[2019-12-23] MEDS ORDERED: LIDODERM1 EACH TD (15:29)
[2019-12-23] MEDS ORDERED: NAPROSYN500 MG PO (15:29)
[2019-12-23] MEDS ORDERED: MORPHINE SULFAT15 MG PO (15:29)
[2019-12-23] MEDS ORDERED: AZITHROMYCIN250 MG PO (15:30)
== END 2019-12-23 15:56 | disposition home or self-care (01) ==
LOC: ED 14:02
DX: S22.42XA Multiple fractures of ribs, left side, initial encounter for closed fracture (principal); W01.198A Fall on same level from slipping, tripping and stumbling with subsequent striking against other object, initial encounter; E03.9 Hypothyroidism, unspecified; Z87.891 Personal history of nicotine dependence; Z88.8 Allergy status to other drugs, medicaments and biological substances; Z79.899 Other long term (current) drug therapy; Z79.82 Long term (current) use of aspirin
CPT/HCPCS: 71101; 96372; 99283-25; J1885

== ENCOUNTER 2020-01-30 18:00 | Inpatient (IN) | payer MEDICARE, OTHER ==
[~2020-01-30] VITALS: Ht 162.6 cm; Wt 74.3 kg
[~2020-01-30 18:00] MED LIST changes: +AZITHROMYCIN250 MG PO; +LIDODERM1 EACH TD; +MORPHINE SULFAT15 MG PO; +NAPROSYN500 MG PO
--- NOTE | 2020-01-30 22:30 | NUR ---
PT ARIVING TO UNIT FROM ED, PT ABLE TO XFER SELF TO CCU BED VIA SBA, TOLERATING WELL, CARDIAC LEAD MOVED OVER TO CCU MONITOR, BP CUFF ON, Q15 AUTO, VITALS TAKEN, WATER PROVIDED, DAUGHTER IN RM AT THIS TIME, NO FURHTER NEEDS AT THIS TIME
--- NOTE | 2020-01-30 23:00 | NUR ---
PT ARRIVED TO ROOM 127 AT 2230 VIA STRETCHER, ACCOMPANIED BY GRANDDAUGHTER ARON. PT ABLE TO STAND AND TRANSFER HERSELF TO THE BED. ALERT/ORIENTED, DENIES PAIN. LUNGS CLEAR, 2L O2 VIA NC. HR IRREGULAR, RATE 95-120, CARDIZEM DRIP INFUSING AT 15MG/HR. BOWEL TONES ACTIVE, DENIES NAUSEA, CURRENTLY EATING A SANDWICH. SKIN GROSSLY INTACT, MODERATE EDEMA NOTED IN BLE, CMS INTACT. IV SITE PATENT, INFUSING WNL, BLOOD RETURN PRESENT. PT INSTRUCTED TO USE CALL LIGHT. NO FURTHER REQUESTS AT THIS TIME, CALL LIGHT AND BELONGINGS WITHIN REACH.
--- NOTE | 2020-01-31 | NUR ---
PT VITALS CAUGHT UP FOR RN AT THIS TIME
--- NOTE | 2020-01-31 00:21 | NUR ---
CARDIZEM TITRATED TO 12.5MG/HR FOR HR 85-90'S. BP STABLE AT 117/55(67). PT PROVIDED WITH WARM BLANKET PER REQUEST.
--- NOTE | 2020-01-31 01:09 | NUR ---
4 SETS OF VITALS CHARTED AT THIS TIME
--- NOTE | 2020-01-31 02:08 | NUR ---
PT APPEARS TO BE ASLEEP, NO APPARENT DISTRESS, RESPIRATIONS EVEN AND UNLABORED, RR:20. CARDIZEM CONTINUES AT 12.5MG/HR, HR FLUCTUATES BETWEEN 80-100. 2L O2 VIA NC REMAINS IN PLACE, SPO2:96%.
--- NOTE | 2020-01-31 02:12 | NUR ---
VITAL SETS ARE CHARTED AT THIS TIME
--- NOTE | 2020-01-31 03:34 | NUR ---
VITAL SET ARE CHARTED AT THIS TIME, ORAL TEMP ADDED TO LATEST SET PROVIDED VIA RN,
--- NOTE | 2020-01-31 03:36 | NUR ---
ASSESSMENT COMPLETED. LUNGS REMAIN CLEAR ON 2L, DENIES SOB AT REST BUT FEELS DYSPNIC WITH EXERTION. HR IRREGULAR, RATE 80-90'S, CARDIZEM CONTINUES AT 12.5MG/HR. UP TO BSC WITH SBA, SLIGHTLY UNSTEADY ON FEET, VOIDED 300ML AND RETURNED TO BED. PT DENIES NEEDS AT THIS TIME, CALL LIGHT WITHIN REACH.
--- NOTE | 2020-01-31 04:42 | NUR ---
VITAL SETS CHARTED
--- NOTE | 2020-01-31 05:54 | NUR ---
VITALS CHARTED AT THIS TIME
--- NOTE | 2020-01-31 07:40 | NUR ---
Patient lying in bed, resting with eyes closed. Allowed to rest at this time as respirations are even and unlabored. Call light in reach, bed rails up X2.
--- NOTE | 2020-01-31 08:37 | EKG ---
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
--- NOTE | 2020-01-31 09:08 | NUR ---
Assessment completed. States some chest tightness at this time. Cardizem dose adjusted. AM medications administered as prescribed. Verbalizes understanding. Call light in reach, bed rails up X2.
--- NOTE | 2020-01-31 11:13 | NUR ---
Family member at bedside. Cardizem adjusted to meet parameters. PRN Tylenol administered at this time due to continued tightness in chest with deep breaths. Denies other needs at this time. Call light in reach, bed rails up X2.
--- NOTE | 2020-01-31 12:14 | NUR ---
PATIENT EATING LUNCH IN BED. DAUGHTER IN ROOM. CALL LIGHT WITHIN REACH AND NO FUTHER NEEDS AT THIS TIME.
--- NOTE | 2020-01-31 13:08 | NUR ---
DISCUSSED WITH DR. PIZARRO PATIENT WITH NO URINE OUTPUT TODAY. NO NEW ORDERS AT THIS TIME.
--- NOTE | 2020-01-31 14:39 | NUR ---
PATIENT REFUSED CARE WANTS TO WAIT. CALL LIGHT WITHIN REACH NO FUTHER NEEDS AT THIS TIME
--- NOTE | 2020-01-31 15:28 | NUR ---
Assessment completed. Remains on cardizem drip at this time. Rate improving. Lying in bed at this time. CHest tightness is improving.
--- NOTE | 2020-01-31 16:22 | NUR ---
Lying in bed watching TV. Denies needs at this time. Remains on cardizem drip at this time. Call light in reach. Bed rails up X2. Assessment completed. States she is feeling much better than earlier today with minimal tightness in her chest at this time.
--- NOTE | 2020-01-31 17:43 | NUR ---
Sitting up in bed. Medications given, educated about medications. Verbalizes understanding. Takes without difficulty.
--- NOTE | 2020-01-31 20:18 | NUR ---
PT TO TRANSFERRED FROM CCU TO ROOM 119. ALERT AND ORIENTED. 2L/NC IN PLACE. PT REPORTS SLIGHT SOB AFTER TALKING ON PHONE BUT OTHER HIGGINS BREATHING IS "FINE". DENIES PAIN OR NAUSEA. 2L/NC IN PLACE. TELE #10. A-FIB HR 90'S-100'S. FAMILY MEMBER IN ROOM. ALL QUESTIONS ANSWERED. PT ORIENTED TO ROOM AND NURSE CALL LIGHT. WHITE BOARD UPDATED.
--- NOTE | 2020-01-31 21:54 | NUR ---
EVENING ASSESSMENT COMPLETE. SCHEDULED MEDS ADMINISTERED PER EMAR. PT DENIES PAIN OR NAUSEA. DENIES CHEST PAIN. UP TO BSC WITH SBA TO VOID 250 ML CONCENTRATED URINE. DYSPNEA WITH EXERTION NOTED. BACK TO BED, DINH WELL. HOB ELEVATED. 02 2L/NC IN PLACE. BLE NOTED AND LEGS ELEVATED. HR REMAINS IRREGULAR. PT DENIES FURTHER NEEDS. CALL LIGHT IN REACH.
--- NOTE | 2020-01-31 23:15 | NUR ---
HR NOTED TO BE TRENDING UP WITH RATE GREAT 130'S. PT DENIES CP OR SOB. REPORTS "I WAS JUST LYING HERE WATCHING TV". VS COMPLETE. SCHEDULED ORAL METOPROLOL ADMINISTERED. WARM BLANETS PROVIDED.
--- NOTE | 2020-02-01 01:14 | NUR ---
HR REMAINS IRREGULAR. HEART RATE BETWEEN 100'S-120'S. PT RESTING IN BED WITH EYES CLOSED, NAD.
--- NOTE | 2020-02-01 03:57 | NUR ---
HR 100'S-130'S. NEW ORDERS RECEIVED PER DR. CHAVIS. SCHEDULED MEDS ADMINISTERED PER ORDER.
--- NOTE | 2020-02-01 06:33 | NUR ---
ASSESSMENT COMPLETE. SCHEDULED MEDS ADMINISTERED. PT UP TO BSC WITH SBA. BACK TO BED, DINH WELL. DYSPNEA ON EXERTION. PT DENIES CHEST PAIN. HR IRREGULAR 110-125. RESPIRATIONS 24. 2L/NC IN PLACE. NO FURTHER NEEDS AT THIS TIME. CALL LIGHT IN REACH.
--- NOTE | 2020-02-01 07:20 | NUR ---
HANDOFF REPORT RECEIVED FROM RICE CLEANING MACHINE TENDER RN. PT ON TELE, AFIB WITH HR 120'S.
--- NOTE | 2020-02-01 09:15 | NUR ---
PT RESTING IN BED. PT ALERT AND ORIENTED. ASSISTED TO ORDER BREAKFAST. PT STATES BREATHING IS ABOUT THE SAME, LUNG SOUNDS CLEAR, ON 2L NC. BOWEL TONES ACTIVE, DENIES NAUSEA. PT HR IN 120-130S AT REST, GIVEN SCHEDULED METOPROLOL. CMS INTACT, WITHOUT EDMEA. IV SALINE LOCKED. DISCUSSED PLAN OF CARE FOR THE DAY. WITH PT PERMISSION RETURNED CALL TO GRANDDANADIA ROSS AND UPDATED ON PT CONDITION AND PLAN OF CARE.
--- NOTE | 2020-02-01 10:05 | NUR ---
PATIENT SITTING UP IN BED. CALL LIGHT IN REACH. NO FURTHER NEEDS AT THIS TIME.
--- NOTE | 2020-02-01 12:14 | NUR ---
PT SBA TO BSC, GETS SOB WITH EXERTION, HR 120-130. PT ASSISTED BACK TO BED. PT DENIES OTHER NEEDS AT THIS TIME. GRANDDAUGHTER AT BEDSIDE.
--- NOTE | 2020-02-01 14:07 | NUR ---
PT RESTING IN BED. GRANDAUGHTER AT BEDSIDE, GOING TO HELP CURL PTS HAIR. PT DENIES PAIN. PT ASSISTED TO BSC, VOIDED. PT NOT SOB WITH EXERTION BUT HR CONTINUES TO GET T0 120-130. PT ASSISTED BACK TO BED. PO METOPROLOL GIVEN PER ORDER. PT DENIES OTHER NEEDS AT THIS TIME.
--- NOTE | 2020-02-01 14:50 | NUR ---
PT RESTING IN BED. PT CONTINUES TO BE ON 2L NC, FEELS LESS SOB, ABLE TO TAKE DEEPER BREATHS WITHOUT PAIN. IV LASIX, PO KCL AND DILTIAZEM GIVEN PER ORDER. AFTERNOON ASSESSMENT COMPLETED, NO ACUTE CHANGES. PT DENIES OTHER NEEDS AT THIS TIME.
--- NOTE | 2020-02-01 17:27 | NUR ---
ORTHOSTATIC VITALS TAKEN PER ORDER. PT THEN ASSISTED TO CHAIR FOR DINNER, C-COLLAR REMOVED FOR EATING. FOOD SUPERVISOR TO ASSIST WITH DINNER.
--- NOTE | 2020-02-01 17:41 | NUR ---
PATIENT IN BED RESTING. FRESH WATER GIVEN. CALL LIGHT IN REACH. NO FURTHER NEEDS AT THIS TIME.
--- NOTE | 2020-02-01 18:31 | NUR ---
PT ON 2L NC, LUNG SOUNDS CLEAR, LESS SOB WITH EXERTION. PT ON TELE #10, AFIB, HR BETTER CONTROLLED ON CARDIZEM AND METOPROLOL, HR NOW IN 90'S-110'S. SBA TO [facility], RECEIVED LASIX X2 WITH GOOD URINE OUTPUT. TOLERATING DIET, SMALL APPETITE DUE TO SOB.
--- NOTE | 2020-02-01 19:05 | NUR ---
REPORT RECEIVED FROM DAY SHIFT RN. PT LYING IN BED WITH EYES CLOSED. RESPIRATIONS EVEN AND UNLABORED. PT NOT DISTURBED AT THIS TIME. WHITE BOARD UPDATED. CALL LIGHT IN REACH.
--- NOTE | 2020-02-01 20:30 | NUR ---
EVENING ASSESSMENT COMPLETE. SCHEDULED MEDS ADMINISTERED PER EMAR. PT DENIES PAIN OR NAUSEA. NO C/O SOB. LUNGS CLEAR. DIM IN RIGHT BASE. TELE #10. AFIB. HR 90'S-120'S. EDEMA IN BLE NOTED. IMPROVED FROM LAST PM SHIFT. 2L/NC IN PLACE. NO FURTHER NEEDS. CALL LIGHT IN REACH.
--- NOTE | 2020-02-01 21:20 | NUR ---
CALL LIGHT ANSWERED. PT UP TO BSC WITH SBA TO VOID 200 ML CLEAR YELLOW URINE. GAIT STEADY. ABLE TO DO OWN MICHELLE CARE. BACK TO BED, DINH WELL. DYSPNEA ON EXERTION NOTED. 2L/NC IN PLACE. HOB ELEVATED.
--- NOTE | 2020-02-01 23:30 | NUR ---
PT RESTING IN BED WITH EYES CLOSED. RESPIRATIONS EVEN AND UNLABORED. 2L/NC IN PLACE.
--- NOTE | 2020-02-02 02:25 | NUR ---
VS OBTAINED. SCHEDULED MEDS ADMINISTERED PER EMAR. PT UP TO BSC TO VOID WITH SBA. GAIT STEADY. BACK TO BED, DINH WELL. DENIES CP OR SOB. NO FURTHER NEEDS AT THIS TIME.
--- NOTE | 2020-02-02 06:42 | NUR ---
SCHEDULED MEDS ADMINISTERED. TELE #10 AFIB. HR 80'S-100'S. PT DENIES PAIN OR SOB. VS AND I&O COMPLETE.
--- NOTE | 2020-02-02 08:06 | NUR ---
REPORT RECEIVED. PT IN BED WITH LIGHTS OFF. AWAKENS TO NURSE WALKING IN ROOM. 2L NC IN PLACE. PT IS ALERT AND ORIENTED. CALL LIGHT IN REACH
--- NOTE | 2020-02-02 08:30 | NUR ---
ASSESSMENT COMPLETED. MEDICATIONS GIVEN. IMAGING IN FOR ECHO. 2L NC IN PLACE. PT REPORTS SOME IMPROVMENT WITH SOB BUT STILL PRESENT WITH ANY ACTIVITY. PT DENIES PAIN. LUNGS DIM IN BASES. HEART RATE 90. NO PAIN.
--- NOTE | 2020-02-02 10:00 | NUR ---
SPOKE WITH PATIENT IN ROOM. PATIENT LIVES ALONE BUT HAS DAUGHTER AND GRANDDAUGHTER IN THE AREA WHO HELP ANYTIME SHE NEEDS. DAUGHTER HAS STAYED WITH HER IN THE PAST TO HELP AFTER SURGERY. PATIENT STILL DRIVES. SHE HAS A WALKER FROM [employer] IF SHE NEEDS IT. SHE FEELS SHE IS DOING OK IN [place] BUT DOES LIVE ON [place]. SHE IS WORRIED ABOUT MEDICATION COSTS AT DISCHARGE IF ONE IS VERY EXPENSIVE. SHE STATES ONE TIME SHE WENT HOME A HER COST ON A MED WAS OVER $300 AND SHE HAD TO BORROW THAT FROM FAMILY AND SHE DOES NOT WANT TO DO THAT ALL HER KIDS HAVE CANCER GOING ON AND THEY ARE DEALING WITH FINACIAL ISSUES THEMSELVES NOW. I DISCUSSED WE CAN HAVE PHARMACY MAKE SURE ABOUT COST BEFORE SHE LEAVES. I ALSO DISCUSSED THAT SHE CAN TALK WITH ANY PHARMACY ABOUT RUNNING A CHECK FOR RX COUPONS OR CALL THE PRESCRIBING DOCTOR AND SEE ABOUT LESS EXPENSIVE ALTERNATIVES. SHE WAS NOT AWARE OF THIS. SHE STATES "I THOUGHT THAT WAS ONLY FOR HOMELSS PEOPLE". SHE FEELS SAFE TO RETURN HOME BUT STATES "I JUST HAVING A HARD TIME BREATHING STILL". DISCUSSED SHE IS NOT DISCHARGED YET. PATIENT IS WEARING OXYGEN AND DOES NOT USE THIS AT HOME. WE DISCUSSED THIS ALSO. CM WILL CONTINUE TO FOLLOW.
--- NOTE | 2020-02-02 11:18 | NUR ---
PATIENT IN BED RESTING WITH EYES CLOSED. FRESH WATER GIVEN. CALL LIGHT IN REACH. NO FURTHER NEEDS AT THIS TIME.
--- NOTE | 2020-02-02 13:00 | NUR ---
IN TO [facility]MSINTER NEW MED ORDERS. PT GETTING BACK TO BED FROM CAMMODE. HR UP TO 130 WITH ACTIVITY. PT REPROTS SOB INCREASES WITH ACTIVITY, EVEN EATING. PT RESTING IN BED NOW.
--- NOTE | 2020-02-02 14:36 | NUR ---
PATIENT UP TO BSC AND BACK TO BED, SBA. FRESH WATER GIVEN. CALL LIGHT IN REACH. NO FURTHER NEEDS AT THIS TIME.
--- NOTE | 2020-02-02 16:25 | NUR ---
TITRATED TO RA. 94% ON RA. TOELRATING WELL.
--- NOTE | 2020-02-02 19:53 | NUR ---
REPORT RECEIVED FROM DAY SHIFT RN. PT LYING IN BED ALERT AND ORIENTED. NO DISTRESS NOTED. DENIES NEEDS AT THIS TIME. WHITE BOARD UPDATED. CALL LIGHT IN REACH.
--- NOTE | 2020-02-02 20:19 | NUR ---
COIL INSPECTOR ROUNDING NOTE. PT UTILIES CALL LIGHT, UP TO BSC WITH SBA.PT WOULD LIKE TO SIT ON COMMODE FOR A WHILE TO ATTEMPT BM. PT AGREES TO CALL WHEN READY, CALL LIGHT IN REACH. WHITE BOARD UPDATED.
--- NOTE | 2020-02-02 20:30 | NUR ---
EVENING ASSESSMENT COMPLETE. SCHEDULED MEDS ADMINISTERED PER EMAR. PT GETTING BACK TO BED WITH SBA FROM BSC AFTER HAVING MEDIUM FORMED BOWEL MOVEMENT. PT DYSPNEIC WITH EXERTION. O2 1L/NC PLACED FOR COMFORT. PT ABLE TO RECOVER AFTER A FEW MINUTES OF REST. TELE #10. AFIB. HR 90'S-120'S. PT DENIES CP. PT DENIES QUESTIONS OR CONCERNS AT THIS TIME. CALL LIGHT IN REACH.
--- NOTE | 2020-02-03 02:37 | NUR ---
SCHEDULED MEDS ADMINISTERED. PT UP TO BR WITH MINIMAL SBA TO VOID 400 ML CLEAR YELLOW URINE. GAIT STEADY. ABLE TO DO OWN MICHELLE CARE. BACK TO BED, DINH WELL. DYSPNEA WITH EXERTION. 1L/NC IN PLACE. WARM BLANKET AND FRESH WATER PROVIDED.
--- NOTE | 2020-02-03 07:01 | NUR ---
SCHEDULED MEDS ADMINISTERED PER EMAR. PT UP TO BSC WITH MINIMAL SBA. GAIT STEADY. DAILY WEIGHT OBTAINED. BACK TO BED, DINH WELL. SOB APPEARS IMPROVED THIS AM, PT AGREES. O2 1L/NC REMOVED AT THIS TIME.
--- NOTE | 2020-02-03 07:45 | NUR ---
REPORT RECEIVED. PT IN BED, AWAKE. DENIES PAIN. IMAGING IN FOR CXR. TELE [address] HR 80. PT ON RA. CALL LIGHT IN REACH.
--- NOTE | 2020-02-03 09:00 | NUR ---
ASSESSMENT COMPLETED. MEDICAITONS GIVEN. BLOOD PRESSURE 97/76. LASIX HELD. DR CHAVIS NOTIFIED. PT REFUSING TO GET OOB NOW D/T SOB. AGREES TO GET UP TO CHAIR FOR LUNCH. LUNGS DIM IN BASES. EDEMA TRACE.. ATE 100% OF BREAKFAST.
--- NOTE | 2020-02-03 11:00 | NUR ---
PT ASSISTED TO CHAIR FOR LUNCH. ON RA. SATURATIONS WNL. CALL LIGHT IN REACH. DENIES PAIN.
--- NOTE | 2020-02-03 11:08 | NUR ---
PATIENT RESTING IN CHAIR. NO COMPLAINTS FROM PATIENTS BUT PULSE JUMPING ALL AROUND FROM 66 UP TO 140'S CHARLES CHRISTIE NOTIFIED SLOAN COLMENARES IN ROOM WITH PATIENT
--- NOTE | 2020-02-03 11:45 | NUR ---
Spoke with Regina, she states he daughter tested + for covid yesterday, so she will not have any help at home. Discussed SNF and she will think about it.
--- NOTE | 2020-02-03 15:03 | NUR ---
PATIENT UP IN CHAIR. ELECTRIC VEHICLE ELECTRICIAN DID VITALS AND GOT PATIENT FRESH WATER. CALL LIGHT IN REACH. NO FURTHER NEEDS AT THIS TIME.
--- NOTE | 2020-02-03 17:00 | NUR ---
PT SITTING UP IN CHAIR FOR DINNER. DENEIS SOB OR PAIN. CALL LIGHT IN REACH/.
--- NOTE | 2020-02-03 18:19 | NUR ---
PATIENT IN CHAIR WATCHING TV. FRESH WATER GIVEN. CALL LIGHT IN REACH. NO FURTHER NEEDS AT THIS TIME.
--- NOTE | 2020-02-03 19:15 | NUR ---
REPORT RECEIVED FROM DAY SHIFT RN. PT SITTING IN RECLINER WITH LEGS ELEVATED. EYES CLOSED. RESPIRATIONS EVEN AND UNLABORED. RA. TELE #10 AFIB. HR 100'S. WHITE BOARD UPDATED. CALL LIGHT IN REACH.
--- NOTE | 2020-02-03 20:35 | NUR ---
EVENING ASSESSMENT COMPLETE. SCHEDULED MEDS ADMINISTERED PER EMAR. PT DENIES PAIN OR NAUSEA. SLIGHTLY SOB AFTER RETURNING TO BED BUT PT REPORTS SHE FEELS SOB HAS IMPROVED. HR IRREGULAR. PT DENIES QUESTIONS OR CONCERNS. CALL LIGHT IN REACH.
--- NOTE | 2020-02-03 22:28 | NUR ---
SBA PATIENT WAS UP TO USE THE BATHROOM. PATIENT IS BACK IN BED. NO OTHER NEEDS AT THIS TIME. CALL LIGHT WITHIN REACH.
--- NOTE | 2020-02-03 23:17 | NUR ---
IV IN RIGHT FOREARM NOT PATENT. DC'D WNL. TIP INTACT. NEW IV IN UPPER RIGHT FOREARM PLACED. PT DINH WELL.
--- NOTE | 2020-02-04 02:20 | NUR ---
SCHEDULED MEDS ADMINISTERED PER EMAR. HR 80'S-90'S. PT DENIES SOB. AGREES SHE IS RESTING COMFORTABLY.
--- NOTE | 2020-02-04 06:12 | NUR ---
VITALS AND I&OS DONE AND CHARTED. GARBAGES EMPTIED. DAILY WEIGHT DONE WELL. BEDSIDE TABLE AND CALL LIGHT IN REACH. PT NEEDS NOTHING MORE AT THIS TIME.
--- NOTE | 2020-02-04 06:21 | NUR ---
SCHEDULED MEDS ADMINISTERED PER ORDER. PT SOB AFTER GETTING UP TO BR AND FOR DAILY WEIGHT. RECOVERS AFTER A FEW MINUTES OF REST. ASSESSMENT COMPLETE. HR IRREGULAR, 70'S-80'S AT REST. PT DENIES CP. NO FURTHER NEEDS AT THIS TIME. CALL LIGHT IN REACH.
--- NOTE | 2020-02-04 07:00 | NUR ---
BEDSIDE HANDOFF REPORT RECEIVED FROM JACKERMAN RN. PT SLEEPING, LEFT UNDISTURBED.
--- NOTE | 2020-02-04 08:50 | NUR ---
PT RESTING IN BED, EATING BREAKFAST. PT ON ROOM AIR, LUNG SOUNDS CLEAR WITH CRACKLES IN LEFT LOWER LOBE, REPORTS SOB WITH EXERTION AND LEFT CHEST PAIN WITH DEEP BREATHS. PT DENIES NAUSEA, TOLERATING DIET, BOWLE TONES ACTIVE. PT WITH EDEMA IN BLE, 2+ IN LEGS 3+ IN ANKLES, CAP REFILL <3 SECONDS, PULSES FAINT. VSS, TELE #10 AFIB, GIVEN DILTIAZEM AND METOPROLOL PER ORDER. IV SALINE LOCKED. DISCUSSED PLAN OF CARE, PT PROVIDED WITH FRESH WATER. PT DENIES OTHER NEEDS AT THIS TIME.
--- NOTE | 2020-02-04 09:24 | NUR ---
PATIENT AWAKE IN BED, WAS AMBULATING BANERJEE WITH P/T. VITALS AND I&OS TAKE BY STUDENT AND CHARTED. CALL LIGHT IN REACH, NO OTHER NEEDS AT THIS TIME
--- NOTE | 2020-02-04 09:45 | NUR ---
Spoke with Regina. She declines a SNF and plans on dc to home. Discussed [facility] and she [facility]. Emailed [facility] Chun and [facility] requesting they contact this patient for services.
--- NOTE | 2020-02-04 11:45 | NUR ---
PT EMANUEL LIFTED TO CHAIR FOR LUNCH. BLOOD GLUCOSE 147, GIVEN 1 UNIT SS INSULIN. DAUGHTER AND SON AT BEDSIDE, PT DENIES OTHER NEEDS AT THIS TIME.
--- NOTE | 2020-02-04 13:36 | NUR ---
PATIENT UP IN CHAIR, VITALS AND I&OS CHARTED. CALL LIGHT IN REACH, NO OTHER NEEDS AT THIS TIME
--- NOTE | 2020-02-04 15:23 | NUR ---
PATIENT IS TAKING COUMADIN AND WAS NOT TAKING IT AT HOME. IT'S NOT CLEAR IF SHE WILL GO HOME ON IT SO I BROUGHT HER A HANDOUT ON DIET WHILE TAKING COUMADIN. EXPLAINED HIGH VITAMIN K FOODS - SHE DOES EAT SPINACH ONCE IN AWHILE, NOT REGULARLY. SHE DOES EAT BROCCOLI, BRUSSELS SPROUTS, LETTUCE MORE FREQUENTLY. I EXPLAINED THAT IT'S IMPORTANT TO KEEP HER INTAKE CONSISTENT WITH THESE FOODS AND TO KEEP THE AMOUNT SMALL. SHE DOES TAKE FISH OIL AND WAS TAKING A MVI BUT STOPPED NOT TOO LONG AGO. I SUGGESTED SHE TAKE A LOOK AT THE LABEL AND IF IT HAS VITAMIN K ON IT AND SHE CONTINUES TO TAKE COUMADIN THAT SHE LOOK FOR ONE THAT DOESN'T HAVE VITAMIN K IN IT. SHE APPRECIATED THE INFO. HANDOUT PROVIDED. MY OFFICE # ON HANDOUT IN CASE FURTHER QUESTIONS ARISE.
--- NOTE | 2020-02-04 16:49 | NUR ---
PT ASSISTED TO BATHROOM AND BACK TO BED. COUMADIN GIVEN PER ORDER, PT EDUCATED ON COUMADIN THERAPIES INCLUDING AVOIDING VEGETABLES WITH VITAMIN K, BRUISING AND BLEEDING, AND HAVING LABS DRAWN FOR DOSING. PT STATES SHE IS FEELING A LITTLE NAUSEATED, DECLINING ANTINAUSEA MEDICATION AT THIS TIME.
--- NOTE | 2020-02-04 17:53 | NUR ---
PATIENT AWAKE IN BED, USING HOSPITAL IPAD TO TALK WITH FAMILY. VITALS AND I&OS CHARTED, CALL LIGHT IN REACH, NO OTHER NEEDS AT THIS TIME
--- NOTE | 2020-02-04 18:28 | NUR ---
PATIENTS CELL PHONE WAS LOCATED AND IS NOW ON BEDSIDE TABLE
--- NOTE | 2020-02-04 20:00 | NUR ---
In bed, cooperative with assessment. On room air. Lungs clear, c/o mild discomofrt R upper chest when taking deep breaths, denies SOB or overall Chest Pain. Denies need for pain meds. Tele#[address], Afib rhythm. SL RFA patent. uses call light and toleratiang fluids well. no c/o n/v.
--- NOTE | 2020-02-04 22:08 | NUR ---
up to br, voided, clear yellow urine, back to bed, tolerated well, 1PSBA, FWW, no c/o pain or sob. uses call light and tolerating fluids well
--- NOTE | 2020-02-05 01:01 | NUR ---
rESTING, NO C/O PAIN OR SOB, TELE#[address], CALL LIGHT AT BEDSIDE
--- NOTE | 2020-02-05 01:28 | NUR ---
Up to br, sob on return noted, P106, R22, lungs clear bilat slightly dim at bases bilat at this time. Coop, voided, back to bed. call light and fluids at bedside
--- NOTE | 2020-02-05 02:42 | NUR ---
resataing, eys closed, no s/sx sob noted. call light ant bedside.
--- NOTE | 2020-02-05 04:10 | NUR ---
Anxious, c/o L sided chest/rib area pain. and not being able to catch breath. Taking shallow breaths due to fx rib pain. On room air. Lungs totltaly clear t/o. sats 96-100%, R20. no cysnosis noted. Declines to use IS. RT in room assessing pt. Medicated with Tylenol 500mg po
--- NOTE | 2020-02-05 05:03 | NUR ---
Resting, eys closed, no resp distress, hob elevated, call light and fluids at bedside
--- NOTE | 2020-02-05 06:09 | NUR ---
Pt has slept off and on this shift. On room air. Lungs clear, c/o sob mid shift, lungs were clear, sas 96-100% R22, anxious, calmed down. warm pad given and Tylenol given, effective, went back to sleep, denies c/o pain at L side due to fx ribs.Tele#[address] afib rhythm, received Pacerone and Metropolos this shift. Up to BR several times, c/o sob once on return from bathroom. sats 94-97%, lungs clear bilat. Voiding QS and tolerating fluids well, no n/v.
--- NOTE | 2020-02-05 06:39 | NUR ---
Resting, no distress, call light at bedside
--- NOTE | 2020-02-05 07:15 | NUR ---
In room for shift report from Radha SOTO. Report included: Pts lungs have been "mostly clear" and pts is currently on RA saturations in the mid 90s. Pt on tele #10, and had some episodes of PVCs this morning. Pt had an otherwise uneventful evening. Pt in bed, table and call light within reach.
--- NOTE | 2020-02-05 07:31 | NUR ---
REPORT RECEIVED FROM CHARLES HANDLEY. THIS RN AND CHARLES RODRÍGUEZ ASSUMING CARE OF PT. PT RESTING WITH EYES CLOSED, ON BACK IN BED WITH HEAD OF BED ELEVATED TO 30 DEGREES, RESPIRATIONS EVEN AND UNLABORED. BED RAILS UP. CALL LIGHT WIHTIN REACH. PT ALLOWED TO REST.
--- NOTE | 2020-02-05 08:10 | NUR ---
In room for assessment and med pass. Pt in bed, denies pain and nausea at this time. Pt up tp chair with SBA and FWW. Pt denies diziness and walks with steady gait to chair. Pt alert, oriented x4, and pleasant upon greeting. Pt meds given, able to take without difficulty. Pt assessment complete, VSS, pt saturations mid 90s on RA this morning. Pt denies SOB. Pt states "It feels much easier to breathe today than it did yesterday". Pt demonstrates proper use of I.S. to 7500 x5. Pts lungs sound clear throughout. Pt having breakfast in the chair, table and call light within reach.
--- NOTE | 2020-02-05 09:10 | NUR ---
PT CALL LIGHT ON. PT REQUESTS ASSISTANCE UP TO RESTROOM. STAND BY ASSIST WITH FRONT WHEEL WALKER UP TO RESTROOM. PT VOIDS AND HAS LAREG SOFT BOWEL MOVEMENT. LINENS CHANGED. PT PERFORMES MORNING CARES INDEPENDANTLY, NEW MICHELLE PAD PROVIDED PER PT REQUEST. PT UP TO CHAIR. WARMS BLANKETS PROVIDED. NO ADDITIONAL REQUESTS OR COMPALINTS. CALL LIGHT WITHIN REACH.
--- NOTE | 2020-02-05 10:54 | NUR ---
PATIENT REFUSED A SHOWER SAYS SHE'LL TAKE ONE TOMORROW.
--- NOTE | 2020-02-05 11:00 | NUR ---
In room for rounding. Pt lying in bed, eyes closed, breathing even and unlabored, side rails up x2, table and call light within reach.
--- NOTE | 2020-02-05 11:41 | NUR ---
THIS RN TO ROOM TO CHECK ON PT. PT RESTING IN BED ON BACK WITH HEAD OF BED ELAVATED TO 30 DEGREES. RESPIRATIONS EVEN AND UNLABORED. PT ALLOWED TO REST. BED RAILS UP. CALL LIGHT WITHIN REACH.
--- NOTE | 2020-02-05 15:56 | NUR ---
In room for medical lead. Pt able to take med without difficulty. Pt denies pain and nausea at this time. Pt in chair, table and call light within reach.
--- NOTE | 2020-02-05 16:28 | NUR ---
In room for medical practice assistant. Pt ordered two new meds. Pt able to take meds without difficulty. Pt given some water and crackers to take with her P.O. potassium to reduce stomach upset. Pt educated about why she is getting new meds. Pt verbalized understanding. Pt in chair, table and call light within reach.
--- NOTE | 2020-02-05 16:47 | NUR ---
Pt admitted for Pulmonary Embolism. Pt also has some pleural effusions. Pt had an xray done today, some new meds added to help with pleural effusions. Pt had warfarin, torsemide, and potassium. Pt was able to ambulate to CCU wall and back, pts main complaint being fatigue with exertion. Pt is satting in the mid 90s on room air. Lungs sound clear throughout.
--- NOTE | 2020-02-05 20:18 | NUR ---
PT IN BED WATCHING TV, NO C/O PAIN. uP TO BR, VOIDED, BACK TO BED. C/O SOB. LUNGS ASSESSED, CLEAR BILAT, SATS 96% ON ROOM AIR. RESP22. COOP WITH [id number]. SL LAC PATENT, EDEMA LE, ELEVATED. USES CALL LIGHT AND FLUIDS AT BEDSIDE, NO C/O CP
--- NOTE | 2020-02-06 00:30 | NUR ---
Resting, room air, no distress, call light and fluids at bedside. LE elevated
--- NOTE | 2020-02-06 03:17 | NUR ---
resting, eyes closed, no sob or resp distress noted call light at bedside
--- NOTE | 2020-02-06 04:15 | NUR ---
Has slept this shift, on room air. c/o sob with exertion earlier on shift. Lungs clear bilat, sats 93-97%, no cyanosis noted. SBA/FWW tolerates fair. Has voided QS,had smear of bm, passing large amounts of rectal gas. Tolerating fluids well, no n/v, no c/o pain. sl intact.
--- NOTE | 2020-02-06 04:46 | NUR ---
PUT VITALS IN PER RN
--- NOTE | 2020-02-06 07:31 | NUR ---
REPORT RECEIVED FROM CHARLES HANDLEY. tHIS RN AND CHARLES RODRÍGUEZ ASSUMING CARE OF PT. PT RESTING ON BACK IN BED. PT OPENS EYES TO MOVMENT IN ROOM. PT DENIES PAIN AND NAUSEA AND REPORTS SHE HAS NO REQUESTS OR COMPALINTS AT THIS TIME. PT DENIES FEELINGS OF SHORTNESS OF BREATH AT THIS TIME. BED RAILS UP. CALL LIGHT WITHIN REACH. PT ALLOWED TO REST.
--- NOTE | 2020-02-06 07:34 | NUR ---
To room for shift report from Radha SOTO. Report included: Pt had an uneventful evening. A few trips to the bathroom with SBA and FWW and pt was steady on her feet. Pt is currently, lying in bed, breathing even and unlabored, table and call light within reach.
--- NOTE | 2020-02-06 08:20 | NUR ---
tHIS RN TO ROOM TO CHECK ON PT. BREAKFAST ARRIVES. PT AGREES TO GET UP TO CHAIR FOR BREAKFAST. STAND BY ASSIST, FWW, UP TO CHAIR. LINENS CHANGED. PT EATING BREAKFAST. CHARLES RODRÍGUEZ TO ROOM FOR ASSSESSMENT. PT TOLEARTING ROOM AIR WITH O2 SATURATIONS OF 95%, RR = 20, MILD DYSPNEA ON EXERTION. PT DENIES ADDITIONAL REQUESTS OR COMPLAINTS AT THIS TIME. WARM BLANKETS PROVIDED. CALL LIGHT WITHIN REACH.
--- NOTE | 2020-02-06 09:00 | NUR ---
In room for assessment and med pass. Pt in chair having breakfast. Pt denies pain and nausea at this time. Pt able to take all meds without difficulty. Pt assessment complete, VSS, pt o2sat 95% on RA and lungs sound clear throughout, a little tight on the lower lobes. Pt reports being able to breathe more easily this morning. Pt given warm blankets and had linens changed by Cookie SOTO. Pt given fresh water. Pt in chair, table and calll ight within reach.
--- NOTE | 2020-02-06 09:31 | NUR ---
PATIENT AWAKE IN CHAIR, VITALS AND I&OS CHARTED. CALL LIGHT IN REACH, NO OTHER NEEDS AT THIS TIME
--- NOTE | 2020-02-06 10:00 | NUR ---
In room for rounding. Pt working with [facility].
--- NOTE | 2020-02-06 10:42 | NUR ---
In room for rounding. Pt reports having had a good physical therapy session, and worked hard. Pt denies pain or nausea at this time. Pt in chair, table and call light within reach.
--- NOTE | 2020-02-06 12:45 | NUR ---
THIS RN TO ROOM WITH MD FOR ROUNDS. PT UP TO CHAIR AND FINISHED WITH LUNCH. PT REPORTS HER SHORTNESS OF BREATH HAS IMPROVED AND SHE IS "FEELING BETTER" TODAY. ICE WATER REFILLED. PT REMAINS UP TO CHAIR. PT VERBALIZES UNDERSTANDING OF PLAN OF CARE AND POSSIBLE DISCHARGE TOMORROW. CALL LIGHT WITHIN REACH. NO ADDITIONAL REQUESTS OR COMPLAINTS.
[2020-02-06] MEDS ORDERED: TOPROL XL200 MG PO (12:57)
[2020-02-06] MEDS ORDERED: DILTIAZEM ER360 M1 PO (12:58)
--- NOTE | 2020-02-06 13:02 | NUR ---
To room for rounding. Pt in chair, denies pain and nausea at this time. Pt has table and call light within reach.
--- NOTE | 2020-02-06 13:59 | NUR ---
In room for assessment. Pt reports feeling better than she did yesterday, feels she is still breathing better today as well. Pt able to demonstrate proper use of the I.S. to 1500 x10. Pt denies pain and nausea at this time. Pt assessment complete, lung sounds clear throughout. Pt in chair, table and call light within reach.
--- NOTE | 2020-02-06 13:59 | NUR ---
PATIENT AWAKE IN CHAIR, BALANCING CHECKBOOK. VITALS AND I&OS CHARTED. BLANKET AROUND SHOULDERS PER PATIENT REQUEST. CALL LIGHT IN REACH
--- NOTE | 2020-02-06 15:04 | NUR ---
SBA FROM BATHROOM W/FWW TO BED. PERSONAL ITEMS AND CALL LIGHT WITHIN REACH. NO OTHER NEEDS AT THIS TIME
--- NOTE | 2020-02-06 15:20 | NUR ---
Spoke with Regina. Discussed plan for dc tomorrow. States she is having a hard time finding a ride home. Her children have covid. Informed we can give a care ride and I will tell the nurses. She states she may have granddaughter who can transport her, but she has not been able to contact. Discussed HH and she has used [facility] in the past. I will fax her chart to them today. Updated i have called [facility] from the clinic and they will contact next. week. Pt denies any other needs for dc.
--- NOTE | 2020-02-06 15:31 | NUR ---
FAce sheet, Referral, dc Summary, PT/OT eval and notes faxed to [facility].
--- NOTE | 2020-02-06 17:30 | NUR ---
Notified by Aaliyah, pt's granddaughter, Carl is on the phone wanting info for Dc. Asked Aaliyah to transfer the call to my phone. Spoke with Angelica who is very upset and wanting to know why we are "dumping her grandmother at home". Attempted to exlain I have had several conversations with Malu about going the a senior care as family have covid. Pt has declined all converstations and refuses to go. She is oriented. She then asks who we are sending home with her to make sure the house is ready and she has what she needs. I then asked her, who she would like me to send. Explained this is the families job. They can go to the house with masks on and check the house and deliver groceries as not everyone is covid +. She then states she doesn't mean to get upset, but is frustrated as she lives 20 minutes away and feels someone should help her. I gave her the Number for [facility] and suggested they call for a few hours per week. I also suggested they help her get a Life alert. I told her if they cannot transport we can send her home with a care ride in a taxi. She states she doesn't want to transport her as then Malu will want her to come inside and stay. She requests someone call her when Malu discharges.
--- NOTE | 2020-02-06 17:59 | NUR ---
Phone number for granddaughter given to charge authorizer. Asked they call when Carl when they know pt will dc.
--- NOTE | 2020-02-06 18:39 | NUR ---
Pt being treated for Pulmonary embolism. Pt has clear lung sounds today. Pt worked well with physical therapy today. Pt reported feeling better today than she has this whole stay. Pts family called several times today concerned about how she will go home tomorrow.
--- NOTE | 2020-02-06 19:00 | NUR ---
Pt lying in bed. Shift report recieved by RN. White board cleared. Call light in reach. No concerns at this time.
--- NOTE | 2020-02-06 20:20 | NUR ---
VS are completed, pt unable to void at this time. I&Os will be completed later on this kyler. pt requested some ice in her water, but nothing further. call light within reach, RNs Elizabeth and Ariana in pt room at this time.
--- NOTE | 2020-02-06 20:23 | NUR ---
Pt lying in bed. Assessment complete. VS stable. Pt denies pain. Lung sounds clear and diminished. Refused Mirelax due to having a BM today. IV Saline locked. Call light in reach. No further needs at this time.
--- NOTE | 2020-02-06 23:25 | NUR ---
PT UP TO VOID, SBA FWW, 2 WARM BLANKETS PROVIED, NO FURTHER NEEDS AT THIS TIME
--- NOTE | 2020-02-07 00:28 | NUR ---
PT LYING IN BED. EYES CLOSED. RR WNL WITH UNLABORED BREATHING. CALL LIGHT IN REACH.
--- NOTE | 2020-02-07 02:55 | NUR ---
PT LYING IN BED. STATES HARD TO BREATH. HOB ELEVATED AND REPOSITIONED PT. STATES THAT SHE FEELS MUCH BETTER. O2 SAT 96% JOHN. RR WNL 18 WITH UNLABORED BREATHING. ASSESSMENT COMPLETE. CALL LIGHT IN REACH. NO FURTHER CONCERNS.
--- NOTE | 2020-02-07 06:06 | NUR ---
PT CALLED FOR ASSISTANCE TO THE RESTROOM. SBA WITH FWW TO RESTROOM AND BACK TO BED. SHE DENIES FURTHER NEEDS AT THIS TIME. CALL LIGHT IS CLOSE.
--- NOTE | 2020-02-07 06:34 | NUR ---
PT LYING IN BED. SCHEDULED MEDS GIVEN. PT REQUEST USING OWN MED. PT WILL BE DISCHARGING TODAY AND CHARGE NURSE ASSISTED IN MED REFILL. CALL LIGHT IN REACH. NO FURTHER NEEDS.
--- NOTE | 2020-02-07 06:56 | NUR ---
PT 1P STANDBY/ FWW, SOB WHILE STANDING. FEELS BETTER WITH HOB ELEVATED.. LUNGS CLEAR AND DIMINISHED ON BILATERAL LEGS. TOLERATING FLUIDS. REGULAR DIET.IV SALINE LOCKED.
--- NOTE | 2020-02-07 07:05 | NUR ---
In room for shift report from Libertad SOTO. Report included: Pt is anticipating DC today. Pts family wants an update prior to DC. Pt had an uneventful evening and VSS throughout the evening.
--- NOTE | 2020-02-07 08:14 | NUR ---
Patient sitting up in bed eating breakfast, a&ox4. Pt denies sob at this time, respirations non labored. Pt reports she has no pain at this time. No needs and or distress. Personal supplies and call light within reach.
--- NOTE | 2020-02-07 08:30 | NUR ---
In room for rounding. Pt working with physical therapy.
[2020-02-07] MEDS ORDERED: WARFARIN SODIUM3 MG PO (09:10)
--- NOTE | 2020-02-07 09:36 | NUR ---
In room for assessment and med pass. Pt able to take all meds without difficulty. Pt assessment complete, VSS, see charting. Pts lungs sound clear, bases slightly dim. Pt reports "feeling better" and pt reports decreased effort of breathing. Pts sats were mid to high 90s on RA. Pt in chair, table and call light within reach. Pharmacist Honey at chair side educating pt on all her DC medications. DC orders just in.
--- NOTE | 2020-02-07 10:20 | NUR ---
DISCHARGE ORDERS NOTED, SPOKE WITH ERIKA, STATES SHE WILL BE AT HOSPITAL AT 11:00 BUT WANT TO PICK PATIENT UP AT [facility]. I SPOKE WITH JOEY AND SHE WILL WALK OUT WITH NURSE AND PATIENT FOR DC INSTRUCTIONS AND QUESTIONS.
--- NOTE | 2020-02-07 10:37 | NUR ---
PATIENT UP IN ROOM, DRESSED IN PERSONAL CLOTHES, DOING HAIR AND MAKEUP FOR D/C VITALS AND I&OS CHARTED. NO OTHER NEEDS AT IS TIME
--- NOTE | 2020-02-07 10:55 | NUR ---
PT READY FOR DISCHARGE. VITALS TAKEN AND IV DC'D BY SHAR JOSUE. PT UP TO RESTROOM TO FIX HAIR AND PACK BELONGINGS. DISCHARGE INSTRUCTIONS REVIEWED WITH PT. PT VERBALIZES UNDERSTANDING OF INSTRUCTIONS, MEDICATIONS AND FOLOWUP. PT STATES HER QUESTIONS HAVE BEEN ANSWERED. PT WHEELED FROM UNIT BY CHARLES RODRÍGUEZ AND FARZANEH (PHARMACY), WHO WILL TALK WITH PTS GRANDDAUGHTER ABOUT DISCHARGE INSTRUCTIONS, MEDICATIONS, AND FOLLOW UP. NO ADDITIONAL REQUESTS OR CONCERNS.
--- NOTE | 2020-02-07 11:00 | NUR ---
Pt all prepared for DC by Cookie RN, SURVEILLANCE TECHNICIAN, and Deja SOTO. IV DCd by Deja SOTO. Pt dressed and belongings gathered and in bags attached to wheelchair. Pt in wheelchair, pushed out to granddaughters car. Pt pushed out to car by Deja SOTO, semaj RN, and Honey pharmacist. Granddaughter and pt were educated on DC instructions, medications, and followup care plan. Granddaughter was unsure when her schedule would allow for taking her grandmother to her coumadin clinic appt, but said she would keep the clinics information and call to set up appt when she finds someone to take her. All questions answered by us and Honey. DC packets given to granddaughter and pt. Pt in car safely secured.
== END 2020-02-07 10:55 | disposition home health service (06) | DRG 175 ==
LOC: ED 18:00 → CCU 22:03 → MS 01-31 20:00
PROVIDERS: ADMIT Internal Medicine; ATTEND Internal Medicine
DX: I26.99 Other pulmonary embolism without acute cor pulmonale (principal); J96.01 Acute respiratory failure with hypoxia; I50.31 Acute diastolic (congestive) heart failure; Z20.828 Contact with and (suspected) exposure to other viral communicable diseases; E03.9 Hypothyroidism, unspecified; I48.0 Paroxysmal atrial fibrillation; I07.1 Rheumatic tricuspid insufficiency; I27.20 Pulmonary hypertension, unspecified; Z88.8 Allergy status to other drugs, medicaments and biological substances; Z79.1 Long term (current) use of non-steroidal anti-inflammatories (NSAID); Z79.82 Long term (current) use of aspirin; Z79.891 Long term (current) use of opiate analgesic; Z79.899 Other long term (current) drug therapy
CPT/HCPCS: 36415; 71045; 71046; 71260; 80048; 80053; 83735; 83880; 84484; 85018; 85025; 85379; 85610; 93005; 93010; 93306; 94760; 97110; 97116; 97162; 97530; 97535; 99285-25; C9803; J1650; J1940; J3475; Q9967; U0003

== ENCOUNTER 2020-02-14 17:21 | Inpatient (IN) | payer MEDICARE, OTHER ==
[~2020-02-14] VITALS: Ht 162.6 cm; Wt 71.6 kg
[~2020-02-14 17:21] MED LIST changes: +DILTIAZEM ER360 M1 PO; +TOPROL XL200 MG PO; +WARFARIN SODIUM3 MG PO
--- OUTSIDE RECORDS SUMMARY | 2020-02-14 17:24 | XMS ---
PreManage Notification: EL RAMOS Security Client Care Representative Events No recent Security Events currently on file CRITERIA MET - [facility] - 2 Visits in 30 Days CARE PROVIDERS There are no care providers on record at this time. Gail has no Care Guidelines for this patient. Serina VISIT COUNT (12 MO.) 3 [facility] [place] TOTAL 3 NOTE: Visits indicate total known visits. ED/C VISIT TRACKING (12 MO.) 02/14/2020 17:[address] [facility] [place] TYPE: Emergency COMPLAINT: - SOB 01/30/2020 18:00 [facility] [place] TYPE: Emergency COMPLAINT: - SOB 12/23/2019 14:03 [facility] [place] TYPE: Emergency COMPLAINT: - FALL, L SIDE RIB PAIN DIAGNOSES: - Hypothyroidism, unspecified - Pleurodynia - Fall on same level from slipping, tripping and stumbling with subsequent striking against other object, initial encounter - Allergy status to other drugs, medicaments and biological substances - Personal history of nicotine dependence - FPC (current) use of aspirin - Other roasterman (current) drug therapy - Multiple fractures of ribs, left side, initial encounter for closed fracture INPATIENT VISIT TRACKING (12 MO.) 01/30/2020 22:03 [facility] [place] TYPE: Medical Surgical COMPLAINT: - PE DIAGNOSES: - ferry terminal agent (current) use of non-steroidal anti-inflammatories (NSAID) - Hypothyroidism, unspecified - Pulmonary hypertension, unspecified - Contact with and (suspected) exposure to other viral communicable diseases - Acute diastolic (congestive) heart failure - ferry terminal agent (current) use of opiate analgesic - Rheumatic tricuspid insufficiency - Other care home (current) drug therapy - Other pulmonary embolism without acute cor pulmonale - Allergy status to other drugs, medicaments and biological substances - Acute respiratory failure with hypoxia - FPC (current) use of aspirin - Paroxysmal atrial fibrillation [email or web address]
[2020-02-14] MEDS ORDERED: FUROSEMIDE20 MG PO (17:38)
[2020-02-14] MEDS ORDERED: METOPROLOL SUC200 MG PO (17:46)
--- NOTE | 2020-02-14 19:42 | EKG ---
[facility] [address] [place] [place] [address] Signed Atrial fibrillation Low voltage QRS Cannot rule out Anteroseptal infarct (cited on or before 30-JAN-2020) Abnormal ECG When compared with ECG of 30-JAN-2020 18:16, Vent. rate has decreased BY 70 BPM QRS axis shifted right Criteria for Inferior infarct are no longer present Questionable change in initial forces of Anterior leads Nonspecific T wave abnormality no longer evident in Lateral leads Confirmed by MCKAYLA PIZARRO MD ([id number] on 02/14/2020 7:42:08 PM Electronically Signed By: MCKAYLA PIZARRO MD 02/14/201941 PATIENT NAME: EL RAMOS Electrocardiogram DATE OF : 32 PHYSICIAN: MCKAYLA PIZARRO MD REPORT #: [id number] REPORT IS CONFIDENTIAL AND NOT TO BE RELEASED WITHOUT AUTHORIZATION
--- NOTE | 2020-02-14 22:50 | NUR ---
PT TO ROOM 119 FROM ED VIA STRETCHER AT 2215. ALERT AND ORIENTED X 4. PT ABLE TO TRANSFER SELF TO BED WTIH MINIMAL SBA. SLIGHT SOB NOTED WITH TRANSFER. PT ON RA, SpO2 96%. RR 18. TELE #4 A-FIB. HR 90'S-100'S. PT DENIES PAIN OR NAUSEA. NO C/O SOB OR CHEST PAIN. UP TO BR WITH FWW TO VOID 400 ML CLEAR YELLOW URINE. PT ABLE TO DO OWN MICHELLE CARE. BACK TO BED. GAIT STEADY, DINH WELL. PT REPORTS FEELING "A LITTLE WINDED". ASSESSMENT COMPLETE. SCHEDULED MEDS ADMINISTERED PER EMAR. PT ORIENTED TO ROOM AND NURSE CALL LIGHT. DENIES QUESTIONS OR CONCERNS AT THIS TIME. WHITE BOARD UPDATED. CALL LIGHT IN REACH.
--- NOTE | 2020-02-14 23:27 | NUR ---
PT WAS UP TO VOID, BACK IN BED AT THIS TIME, NO FURHTER NEEDS
--- NOTE | 2020-02-15 01:30 | NUR ---
CALL LIGHT ANSWERED. PT UP TO BR WITH SBA AND FWW TO VOID 300 ML CLEAR YELLOW URINE. PT ABLE TO DO OWN MICHELLE CARE. BACK TO BED. GAIT STEADY, DINH WELL. INCREASED RESPIRATIONS WITH EXERTION. SpO2 96% ON RA. RESPIRATIONS EVEN.
--- NOTE | 2020-02-15 05:07 | NUR ---
PT RESTING IN BED WITH EYES CLOSED, RESPIRATIONS EVEN AND UNLABORED. TELE #4 A-FIB. HR 90'S TO 100'S.
--- NOTE | 2020-02-15 06:22 | NUR ---
VS AND I&O COMPLETE. DAILY WEIGHT OBTAINED. PT REPORTS SHE WAS UP TO THE BR INDEPENDENTLY WHILE LAB WAS IN THE ROOM. ENCOURAGED PT TO CALL FOR NURSING STAFF WHEN UP AMBULATING DUE TO SOB AND WEAKNESS, PT VERBALIZES UNDERSTANDING. SCHEDULED MEDS ADMINISTERED. WARM BLANKET PROVIDED.
[2020-02-15] MEDS ORDERED: POTASSIUM CHLOR8 ME1 PO (07:12)
[2020-02-15] MEDS ORDERED: DILTIAZEM ER360 MG PO (07:13)
--- NOTE | 2020-02-15 09:14 | NUR ---
DISCUSSED WITH IN AM MEETING CARE PLAN, VERBAL ORDERS FOR DAILY WEIGHT AND CARDIAC NURSE CONSULT GIVEN.
--- NOTE | 2020-02-15 09:30 | NUR ---
PT IS ALERT, STATES SHE HAD A GOOD SLEEP, SBA UP TO BATHROOM TO VOID, CONT. TO HAVE 2-3+ EDEMA IN LE'S, SOB WITH EXHERTION, DOING WELL ON RA, ATE BREAKFAST, DENIES ANY NEEDS, USING CALL LIGHT APPROP. TELE#4 A-FIB 70-120,
--- NOTE | 2020-02-15 11:35 | NUR ---
PT CONCERNED SHE MAY BE CONSTIPATED, REQUESTED MIRALAX THIS IS WHAT WORKS FOR HER AT HOME. MIRALX ORDERED AND GIVEN. PT STATES SHE IS COMFORTABLE, HAD JUST ORDERED LUNCH.
--- NOTE | 2020-02-15 16:00 | NUR ---
WARFARIN IS BEING HELD, INR-4.5
--- NOTE | 2020-02-15 17:10 | NUR ---
PATIENT HAS HAD A GOOD APPETITE, GOOD URINE OUTPUT, NOTED EDEMA HAS IMPROVED IN LE'S.
--- NOTE | 2020-02-15 19:39 | NUR ---
REPORT RECEIVED FROM DAY SHIFT RN. PT LYING IN BED ALERT AND ORIENTED. TELE #4 A-FIB. HR 80'S-90'S. DENIES SOB. WHITE BOARD UPDATED. CALL LIGHT IN REACH.
--- NOTE | 2020-02-15 20:30 | NUR ---
EVENING ASSESSMENT COMPLETE. SCHEDULED MEDS ADMINISTERED PER EMAR. PT DENIES PAIN OR NAUSEA. DOES REPORT SLIGHT SOB AT REST. SpO2 96% ON RA. RESPIRATIONS EVEN. ABLE TO TALK IN FULL SENTENCES. 2+ BLE EDEMA NOTED. PT WITH LEGS ELEVATED. DENIES FURTHER NEEDS AT THIS TIME. [facility]
--- NOTE | 2020-02-15 23:07 | NUR ---
CALL LIGHT ANSWERED. PT C/O INCREASED SOB WHILE IN BED. HOB ELEVATED. RESPIRATIONS 22. SpO2 98% ON RA. CRACKLES HEARD IN LEFT LUNG HURD. PT DENIES CHEST PAIN. ROOM TEMP DECREASED. PERSONAL FAN PROVIDED. CALL PLACED TO DR. CHAVIS.
--- NOTE | 2020-02-15 23:39 | NUR ---
DR. CHAVIS UPDATED. NO NEW ORDERS RECEIVED. WILL KEEP PT'S HOB ELEVATED. PT REPORTS SHE IS "FEELING A LITTLE BETTER".
--- NOTE | 2020-02-16 00:15 | NUR ---
PT RESTING IN BED WITH EYES CLOSED. NO APPARENT DISTRESS. RESPIRATIONS EVEN AND UNLABORED.
--- NOTE | 2020-02-16 00:35 | NUR ---
PT RESTING IN BED WITH EYES CLOSED. NO APPARENT DISTRESS. RESPIRATIONS EVEN AND UNLABORED.
--- NOTE | 2020-02-16 00:43 | NUR ---
PT RESTING IN BED WITH EYES CLOSED. HOB ELEVATED. RESPIRATIONS 20. HR 60'S-70'S.
--- NOTE | 2020-02-16 03:53 | NUR ---
PT LYING ON BACK WITH EYES CLOSED. HOB ELEVATED. RESPIRATIONS EVEN. NO APPARENT DISTRESS.
--- NOTE | 2020-02-16 05:15 | NUR ---
CALL LIGHT ANSWERED. PT UP TO BR WITH MINIMAL SBA AND FWW TO VOID. GAIT STEADY. BACK TO BED, DINH WELL. INCREASED SOB WITH AMB NOTED. PT REPORTS SOB FROM LAST EVENING IMPROVED. ASSESSMENT COMPLETE. CRACKLES NOT HEARD THIS AM. DAILY WEIGHT OBTAINED.
--- NOTE | 2020-02-16 09:34 | NUR ---
PT ATE 100% OF BREAKFAST, UP TO BATHROOM TO VOID, WANTED TO LAY BACK DOWN SHE WAS HAVING SOME NAUSEA AFTER BEING UP, WARM BLANKET FOR COMFORT, CONT. TO BE SOB WITH MUCH EXHERTION BUT DENIES SOB WHEN LAYING IN BED. LOWER LEGS CONT. TO HAVE EDEMA BUT IS A LITTLE BETTER. INR-2.4 THIS AM. DENIES FURTHER NEEDS.
--- NOTE | 2020-02-16 09:45 | NUR ---
PT REQUESTED HELP IN ROOM, STATED SHE WAS GOING TO BE SICK, EMESIS BAG GIVEN, VOMITED 200ML OF BREAKFAST. COLD CLOTH TO WASH FACE, STATES SHE FEELS A LITTLE BETTER. CALL LIGHT IN EASY REACH. HRIR-40-120. NO SOB. VS TAKEN.
--- NOTE | 2020-02-16 10:04 | NUR ---
RECIEVED PHONE CALL FROM DAUGHTER RANJANA FALK [phone]. SHE STATES SHE HAD COVID ABOUT TWO WEEKS AGO AND STILL IS NOT FEELING WELL AND WILL NOT BE COMING IN. SHE IS WONDERING ABOUT HOW TO HIRE SOME IN-HOME HELP FOR PATIENT. DISCUSSED [facility] OPTIONS, PATIENT HAS FINACES THAT EXCLUDE HER FOR STATE HELP. DID DISCUSS THEY CAN OBTAIN A STATE REGISTERED CAREGIVER LIST TO HIRE DIRECTLY FROM [facility]. DISCUSSED [facility] IN[facility]HOME [facility], QUESTIONS ANSWERED REGARDING THIS. ALSO [id number] HIRING. DISCUSSED POSSIBLE MOVING TO ASSISTED LIVING. SHE STATES THEY AREN'T READY FOR THAT. SHE STATES SHE WOULD USUALLY BE GOING, BUT BEING SICK LATELY HAS CAUSED A PROBLEM. SHE STATES HER TWO DAUGHTERS ARE TRYING TO HELP, TOO. SHE STATES SHE IS LOOKING INTO GETTING POA FOR PATIENT. SHE WOULD LIKE A CALL FROM DR CHAVIS AFTER HE SEES PATIENT TODAY, DISCUSSED I WILL PASS THAT REQUEST TO HIM BUT THAT WE ARE VERY BUSY AND IT IS UNSURE IF HE WILL HAVE TIME UNTIL LATER TODAY. ALL QUESTIONS ANSWERED. SHE STATES MOM HAS FEW STEPS INTO HOUSE, NO STAIRS INSIDE. SHE HAS FWW TO USE. STATES SHE GETS AROUND AT HOME PRETTY GOOD, BUT NEEDS HELP WITH HOUSEHOLD WORK AND SHOPPING. SHE STATES SHE IS OK FINANCIALLY FOR MEDS, FOOD AND UTILITIES. CM WILL CONTINUE TO FOLLOW.
--- NOTE | 2020-02-16 10:14 | NUR ---
PT SBA INTO BATHROOM, STATES SHE FEELS LIKE SHE IS GOING TO HAVE A BM BUT CAN'T PUSH IT OUT, ORDER PLACED FOR SUPP TO HELP, BACK TO BED. PT STATES NAUSEA IS BETTER. DENIES DIZZYNESS.
--- NOTE | 2020-02-16 10:17 | NUR ---
PATIENT IN BED RESTING. PATIENT NOT FEELING WELL BUT RN IS ALREADY AWARE. CALL LIGHT IN REACH. NO FURTHER NEEDS AT THIS TIME. PATIENT REFUSED SHOWER AT THIS TIME.
--- NOTE | 2020-02-16 10:42 | NUR ---
PT REQUESTS TO PLACE SUPPOSITORY HERSELF, SHE REPORTS SHE HAS DONE THIS IN PAST. PT SELF ADMNISTERED INSTRUCTIONS AND EDUCATIONS
--- NOTE | 2020-02-16 14:00 | NUR ---
SPOKE WITH PATIENT IN ROOM. SHE STATES SHE PLANS TO RETURN HOME WITH HELP OF GRANDDAUGHTER AT DISCHARGE. PATIENT STILL HAS FWW AND STATES SHE FEELS SAFE TO RETURN HOME. PATIENT STATES NOTHING HAS CHANGED SINCE LAST ADMISSION. STATES FAMILY WILL MAKE SURE SHE GETS TO FOLLOW UP APPOINTMENT AND HELP HER WITH ANYTHING SHE NEEDS. CM WILL CONTINUE TO FOLLOW.
--- NOTE | 2020-02-16 14:00 | NUR ---
PT C/O UNABLE TO PASS HARD STOOL, REQUESTED ENEMA, FLEETS ENEMA GIVEN AND PT ABLE TO PASS XL STOOL. REPORTS SHE FEELS MUCH BETTER. SITTING UP EATING LUNCH TRAY. DENIES FURTHER NEEDS. TEL WAS DC'D.
--- NOTE | 2020-02-16 14:30 | NUR ---
PATIENT UP TO BATHROOM, SBA FWW. CALL LIGHT IN REACH. NO FURTHER NEEDS AT THIS TIME.
--- NOTE | 2020-02-16 16:30 | NUR ---
PT STATES SHE IS FEELING MUCH BETTER, TAKING FLUIDS WELL, DR CHAVIS WAS IN TO SEE HER. DENIES SOB THIS AFTERNOON. REMAINS ON RA, WARFARIN GIVEN.
--- NOTE | 2020-02-16 18:40 | NUR ---
PATIENT IN BED RESTING WITH EYES CLOSED. B\P A LITTLE LOW, RN NOTIFIED. FRESH WATER GIVEN. CALL LIGHT IN REACH. NO FURTHER NEEDS AT THIS TIME.
--- NOTE | 2020-02-16 18:44 | NUR ---
SPOKE TO DR CHAVIS EARLIER ABOUT LOW BP SINCE GIVING LASIX, CONT. TO ENCOURAGE PT TO DRINK FLUIDS, ENC PT TO MOVE SLOWLY, SBA WHEN OOB. MONITOR I/O.
--- NOTE | 2020-02-16 19:48 | NUR ---
REPORT RECEIVED FROM DAY SHIFT RN. PT LYING IN BED ALERT AND ORIENTED. DENIES NEEDS AT THIS TIME. WHITE BOARD UPDATED. CALL LIGTH IN REACH.
--- NOTE | 2020-02-16 21:30 | NUR ---
SBA TO THE BATHROOM AND BACK TO BED. ICE WATER REFILLED. NO OTHER NEEDS AT THIS TIME. ROOM LIGHTS OFF.
--- NOTE | 2020-02-16 21:40 | NUR ---
EVENING ASSESSMENT COMPLETE. SCHEDULED MEDS ADMINISTERED PER EMAR. PT DENIES SOB. LUNGS CLEAR AND DIM IN BASES. BP NOTED TO BE LOW ON MONITOR. MANUAL BP 90/56. PT ASYMPTOMATIC. UP TO BR WITH SBA AND FWW WITH GAME ARTIST. PT CAUTIONED TO MOVE SLOWLY AND CALL FOR ASSISTANCE WHEN AMB. PT VERBALIZES UNDERSTANDING. ENCOURAGED PT INCREASE ORAL INTAKE REPORTED BY SOUTH RN PER DR. CHAVIS.
--- NOTE | 2020-02-17 03:00 | NUR ---
PT AWAKE IN BED. DENIES PAIN OR SOB. NO NEEDS AT THIS TIME. CALL LIGHT IN REACH.
--- NOTE | 2020-02-17 06:41 | NUR ---
PT RESTING WITH EYES CLOSED, NAD.
--- NOTE | 2020-02-17 07:42 | NUR ---
Patient resting, respirations even and non labored. Patient has no distress at this time. Personal supplies and call light within reach.
--- NOTE | 2020-02-17 10:55 | NUR ---
GRANDDAUGHTER IN ROOM VISITING. PATIENT STATES SHE REMEMBERS ME TALKING ABOUT DIET AND COUMADIN DURING HER LAST ADMISSION. WE REVIEWED THAT INFORMATION WHICH WAS GOOD FOR HER GRANDDAUGHTER TO HEAR. THEN I SHOWED LINUS A HANDOUT ON HEART FAILURE NUTRITION THERAPY. MOSTLY I EMPHASIZED THAT SHE WILL NEED TO WATCH HER SODIUM INTAKE. SHE LIVES IN [place] ALONE, DOESN'T EAT OUT MUCH AND SHE DOES COOK HER MEALS. USUALLY HAS OATMEAL OR SPECIAL K FOR BREAKFAST. SHE EATS SMALL PORTIONS. I TOLD HER THAT SHE WILL NEED TO KEEP HER TOTAL SODIUM INTAKE TO 2,000 MG PER DAY. SHE WILL NEED TO LOOK AT SODIUM PER SERVING ON FOOD LABELS. ONE TIP IS TO CHOOSE FOODS WITH 140 MG OR LESS PER SERVING. SHE DOES MAKE A GRILLED CHEESE SANDWICH FROM TIME TO TIME AT HOME. SHE HAPPY TO HEAR THAT FRUIT IS FINE FOR BOTH SODIUM AND WARFARIN. THE HANDOUT I PROVIDED HAD A LIST OF FOODS TO AVOID AND A LIST OF FOODS RECOMMENDED. SHE CAN GET AHOLD OF ME BY PHONE IF SHE HAS MORE QUESTIONS. ALSO EXPLAINED TO HER THAT SHE SHOULD LOOK FOR ITEMS ON THE MENU HERE WITH A HEART BY THEM.
--- NOTE | 2020-02-17 12:00 | NUR ---
Spoke with Etelvina. She states she plans on selling her home in the near future. We discussed AMALIA. She is considering this. I asked if she would be willing to go to a SNF on dc and she declines. She states he family have found a cg to assist her 2 times per week. He daughter has had covid and has been unable to assist her. She states she runs out of energy quickly. She plans on dc to home when cleared medically.
--- NOTE | 2020-02-17 13:43 | NUR ---
PATIENT UP TO BATHROOM AND BACK TO BED, SBA FWW. FRESH WATER GIVEN. CALL LIGHT IN REACH. NO FURTHER NEEDS AT THIS TIME.
--- NOTE | 2020-02-17 13:43 | NUR ---
Heart Failure Nurses Note: Diagnosis: Acute on chronic diastolic heart failure Vice President Compliance :not established with one PCP: Dr Olmos Last echocardiogram completed on previous visit Jan 2020 Admit BNP: 258 Social support system: Daughter and grandchildren. Granddaughter Carl present for this visit. Weight monitoring: Scale present in home. Was not aware of need for QD weights. Discussed how to weigh daily/ when to notify PCP Symptom management: Addressed monitoring and reporting changes in weight or symptoms utilizing Zones form Diet: Patient lives alone, granddaughter concerned it may be difficult for her to transition at first. Patient has talked with [facility] squeezer operator and has low sodium packet. Is on warfarin. Usual physical activity: Little lately. In her past she use to jog and would like to be more active. Explained slow progressive exercise to be beneficial once she is stable. Informed of talk test. Medication routine: Is not use to taking much medications. Benefits of using pill box explained. She does not have trouble obtaining medications. Has been counseled on minimizing/avoiding use of NSAIDs Tobacco:NA Advanced directive: Not discussed at this initial visit Recommendations prior to discharge: Document ambulation oxygen saturations prior to discharge Absence of orthostatic hypotension. Discharge weight less than admit weight. Discharge BNP less than admit (as per [facility] Heart Failure DC Bundle Follow-up plans: Follow up call to patient post discharge. Would not qualify for cardiac rehab but was welcome to come for complimentary education visit. Teaching materials at bedside: [facility] HF packet with Zones magnet Teaching materials given today: [facility] contact information, Lower sodium frozen dinner options, spices and vinegars for flavoring foods, and BID 7 day pill container.
--- NOTE | 2020-02-17 18:03 | NUR ---
PATIENT UP TO BATHROOM AND BACK TO BED, SBA FWW. FRESH WATER GIVEN. B\P CAMREN, RN NOTIFIED. CALL LIGHT IN REACH. NO FURTHER NEEDS AT THIS TIME.
--- NOTE | 2020-02-17 19:53 | NUR ---
REPORT RECEIVED FROM DAY SHIFT RN. PT LYING IN BED ALERT AND ORIENTED. DENIES PAIN OR SOB. NO NEEDS AT THIS TIME. WHITE BOARD UPDATED. CALL LIGHT IN REACH.
--- NOTE | 2020-02-17 21:16 | NUR ---
EVENING ASSESSMENT COMPLETE. SCHEDULED MEDS ADMINISTERED PER EMAR. PT DENIES PAIN OR NAUSEA. DENIES SOB AT REST. PO POTASSIUM GIVEN WITH CRACKERS. BLE WITH 2+ EDEMA. LEGS ELEVATED. NO QUESTIONS OR CONCERNS AT THIS TIME. CALL LIGHT IN REACH.
--- NOTE | 2020-02-17 23:04 | NUR ---
CALL LIGHT ANSWERED. PT UP TO BR WITH FWW AND SBA TO VOID AND HAVE LOOSE BM. GAIT STEADY. BACK TO BED, DINH WELL.
--- NOTE | 2020-02-18 02:39 | NUR ---
PT RESTING IN BED WITH EYES CLOSED, NAD.
--- NOTE | 2020-02-18 04:26 | NUR ---
PT WITH LARGE EMESIS. REPORTS SHE DID NOT FEEL NAUSEOUS PRIOR TO, BUT THAT SHE BURPED AND "IT ALL CAME OUT". PT CLEANED. LINENS CHANGED. BACK IN BED. PT NPO AT THIS TIME FOR DIAGNOSTIC STUDIES. DENIES NAUSEA OR PAIN. CALL LIGHT IN REACH.
--- NOTE | 2020-02-18 05:35 | NUR ---
SCHEDULED MEDS ADMINISTERED. PT DENIES PAIN OR SOB. DAILY WEIGHT OBTAINED. LOW URINE OUTPUT NOTED, ENCOURAGED ORAL INTAKE. PT DENIES FURTHER NEEDS. CALL LIGHT IN REACH.
--- NOTE | 2020-02-18 09:37 | NUR ---
PATIENT AWKE IN CHAIR, VITALS AND I&OS CHARTED. LINENS CHANGED, CALL LIGHT IN EASY REACH
--- NOTE | 2020-02-18 10:22 | NUR ---
Patient awake sitting up in bed watching TV, alert and oriented x4. Patient on room air, respirations even and non labored. Per pt report, she has intermittent nausea after taking po medications. No sob at rest. Patient has no needs.
--- NOTE | 2020-02-18 12:44 | NUR ---
Patient in chair watching tv, no distress noted. Patient denies needs. Personal supplies and call light within reach.
--- NOTE | 2020-02-18 13:28 | NUR ---
PATIENT AWAKE IN BED, REPORTS SHE FEELS WHEEZY IN BETWEEN BREATHS AFTER MOVING FROM CHAIR TO BED, VITALS AND I&OS CHARTED, O2 IS 95% ON ROOM AIR. CALL LIGHT IN REACH, NO OTHER NEEDS AT THIS TIME
--- NOTE | 2020-02-18 16:00 | NUR ---
No change in plan for dc.
--- NOTE | 2020-02-18 17:13 | NUR ---
PATIENT AWAKE IN BED, EATING DINNER. FAMILY MEMBER IN ROOM. VITALS AND I&OS CHARTED. CALL LIGHT IN REACH, NO OTHER NEEDS AT THIS TIME
--- NOTE | 2020-02-18 19:50 | NUR ---
HOB elevated, on room air, clear lungs, sl LAC patent. LE edema2+, elevated. no c/o painor n/v. Independent in room, voiding QS. coop with assessment. uses call light, tolerating diet and fluids, watching tv
--- NOTE | 2020-02-18 22:41 | NUR ---
UP TO BR, CHARGE NURSE HELPED HER,
--- NOTE | 2020-02-18 22:45 | NUR ---
CALL LIGHT ON. pt UP TO VOID AND BACK TO BED SBA, FWW. DENIES SOB. CALL LIGHT WITHIN REACH.
--- NOTE | 2020-02-19 01:05 | NUR ---
resting, no distress, eyes closed, call light at bedside
--- NOTE | 2020-02-19 03:42 | NUR ---
RESTING, NO DISTRESS, ON ROOM AIR CALL LIGHT AND FLUIDS AT BEDSIDE
--- NOTE | 2020-02-19 06:08 | NUR ---
Pt has slept, on room air, lungs clear , much improved stamine, did c/o slight sob on retunr twice, satss were in high 90's at that time and no changes in lungs. Has voided QS, no bm. Edema LE present. elevated. sl patent. tolerating fluids and diet well. uses call light appropriately
--- NOTE | 2020-02-19 07:10 | NUR ---
In room for shift report from Radha SOTO. Pt report included: Pt had and uneventful evening. Bowel regimen started, per pt request. Last BM was on 02-17-20. Pt is SBA and uses call light appropriately. Pt currently resting in bed, eyes closed, breathing even and unlabored, table and call light within reach.
--- NOTE | 2020-02-19 08:18 | NUR ---
Latest notes faxed to [facility] for update.
--- NOTE | 2020-02-19 09:25 | NUR ---
In room for assessment and med pass. Pt in chair having breakfast. Pt able to take all meds without difficulty. Pt assessment complete, VSS, pt denies pain and nausea at this time. Pt given fresh water. Pt in chair, table and call light within reach.
--- NOTE | 2020-02-19 10:50 | NUR ---
To room for rounding. Pt in chair. Denies pain, nausea, and needs at this time. Pt denies SOB. Pt in chair, table and call light within reach.
--- NOTE | 2020-02-19 12:30 | NUR ---
In room for rounding. Pt lying in bed, breathing even and unlabored. Pt denies pain and nausea at this time. Pt denies SOB. Pt reports wanting a nap before Physical therapy works her out again. Pt in bed, table and call light within reach.
--- NOTE | 2020-02-19 13:17 | NUR ---
In room for med pass. Pt able to take meds without difficulty. Pt denies needs at this time. Pt would like to rest. Pt in bed, table and call light within reach.
--- NOTE | 2020-02-19 15:00 | NUR ---
Spoke with and he is considering TC for this pt. Notified we are unable to take TC at this time. I will discuss SNF with pt. Per pt is weak and unsafe to dc to home. She would benefit from PT. Spoke with Malu and she states she feels she should go, but would like to speak with her family. I attempted to call the daughter and was unable to reach. Called and spoke with her granddaughter. She states they are all insisting she go to a SNF. I will send chart to [facility], and follow up with pt tomorrow.
--- NOTE | 2020-02-19 15:13 | NUR ---
In room for med pass and afternoon assessment. Pt in bed, just completing a session with physical therapy. Pt denies pain and nausea and SOB. Pt reports feeling fatigued after therapy. Pt assessment complete, lungs clear, denies SOB, see charting. Pt in bed, table and call light within reach.
--- NOTE | 2020-02-19 16:10 | NUR ---
In room for med pass. Pts INR was 2.2 this morning. Warfarin given per orders. Pt able to take med without difficulty. Pt given fresh water. Pt repositioned in bed to comfort. Pt denies pain, nausea, and SOB at this time. Pt got a phone call from family and reports feeling SOB with "too much talking". Pt is currently satting at 96% on RA, breathing even and very slightly labored. P{t in bed, table and call light within reach.
--- NOTE | 2020-02-19 17:29 | NUR ---
Pt here for SOB secondary to Diastolic Heart Failure. Today pt had some SOB with physical therapy, and when talking on the phone too much. Pts INR was 2.2 today and pt is getting warfarin. Pt was here for tx of bilateral P.E.s in January 2020, and is still experiencing some pleural effusions. Pt has been alert and oriented all throughout the shift. Denies pain and nausea. Pt voiding quantity sufficient.
--- NOTE | 2020-02-19 18:07 | NUR ---
In room for rounding. Pt denies pain and nausea at this time. Pt denies SOB at this time but reports she has some with exertion to get up to bathroom. Pt given fresh water. Pt denies further needs at this time. Pt in bed, table and call light within reach.
--- NOTE | 2020-02-19 19:25 | NUR ---
RECEIVED REPORT FROM ANNE SOTO. PT IS AWAKE IN BED WITH A VISITOR IN THE ROOM, ELIEZER MYLES ENTERED THE ROOM TO ASSIST PT TO RESTROOM.
--- NOTE | 2020-02-19 19:45 | NUR ---
GAVE REPORT TO ENDER SOTO, WHO IS PT'S PRIMARY RN MU.
--- NOTE | 2020-02-19 20:55 | NUR ---
IN TO GET VITALS, PT UP TO VOID RECENTLY, NO FURTHER NEEDS AT THIS TIME
--- NOTE | 2020-02-19 21:05 | NUR ---
Pt awake, alert and oriented. cler lungs, denies having had a bm today, voiding QS. edema LE, elevated. no c/o pain. sl RAC patent, sluggish to flush call light and fluids at bedside
--- NOTE | 2020-02-20 01:16 | NUR ---
Up to br, voided qs, back to bed, tolerated well, no sob stated or noted. 1pa/fww. fluids and call light at bedside
--- NOTE | 2020-02-20 03:16 | NUR ---
Resting, eys closed, no s/s sob. call light and fluids at bedside
--- NOTE | 2020-02-20 05:29 | NUR ---
Pt has slept mos of this shift. No c/o sob with exertion stated or noted. lungs did have faint crackles at L base earlier, cleared with cough. On room air. voiding QS, uses 1pa/fww, sl patent, no c/o pain. no bm this shift.
--- NOTE | 2020-02-20 08:18 | NUR ---
pt resting eyes closed at time of report. up in bed now tolerates 100% of morning meal. refuses up to the chair stating she wants to 'stay in bed a little longer" denies discomforts or needs of
--- NOTE | 2020-02-20 09:06 | NUR ---
1PA WITH FWW TO BR AND BACK. PATIENT HAD SMALL SM AND NOTED 5-6 ROUND YELLOWISH PILLS IN TOILET AFTER, THIS COMMUNICATIONS STRATEGIST REPORTED TO CHARLES RODRÍGUEZ. P/T IN ROOM NOW.
--- NOTE | 2020-02-20 09:20 | NUR ---
Spoke with Magy and she states she will go to [facility]. Called and spoke with Renee at [facility], they can accept this pt today if they receive the orders orders by noon. They were able to review the chart last night. notified.
--- NOTE | 2020-02-20 09:50 | NUR ---
In room for assessment and med pass. Pt assessment complete, pt was hypotensive. made aware of pts BP and ordered to give all cardiac meds still. Pt able to take all meds without difficutly. Pt up to chair having breakfast. Pt denies pain, nausea, and SOB at this time. Pt in chair, table and call light within reach.
[2020-02-20] MEDS ORDERED: WARFARIN SODIUM3 MG PO ×2 (11:18→11:21)
[2020-02-20] MEDS ORDERED: POTASSIUM CHLO10 ME1 PO (11:22)
[2020-02-20] MEDS ORDERED: FUROSEMIDE20 MG PO ×2 (11:27)
--- NOTE | 2020-02-20 11:42 | NUR ---
Orders, [facility], covid test, 7 day med list faxed to [facility]. Confirmed 2 pm admission by van works for them.
--- NOTE | 2020-02-20 12:23 | NUR ---
In room for rounding. Pt in chair, discussing care plans with case management and pts granddaughter. Pt denies pain, nausea, and SOB at this time. Pt had her lunch already. Pt and pts granddaughters questions about DC answered. Pt IV removed WNL, pressure dressing applied. Pt in chair, table and call light within reach.
--- NOTE | 2020-02-20 13:00 | NUR ---
Notified [facility] cannot transport until 2:30-300.
--- NOTE | 2020-02-20 13:09 | NUR ---
Called [facility] and spoke to Melissa SOTO in recieving facility. Pt report given, including current vitals, medical hx, and current tx and dx. All questions answered.
--- NOTE | 2020-02-20 13:17 | NUR ---
In room for med pass. Pt in chair, watching TV. Pt able to take meds as ordered without difficulty. Pt denies pain, nausea, and SOB at this time. Pt denies further needs. Pt in chair, table and call light within reach.
--- NOTE | 2020-02-20 14:00 | NUR ---
PATIENT UP IN CHAIR, DRESSED IN PERSONAL CLOTHES, WAITING FOR D/C. VITALS AND I&OS CHARTED. CALL LIGHT IN REACH, NO OTHER NEEDS AT THIS TIME
--- NOTE | 2020-02-20 14:33 | NUR ---
In room for rounding. Pt up to bathroom. Pt able to void 200mls light yellow urine. Pt was steady on her feet, denies dizziness. Pt back to chair, reclining, table and call light withn reach.
--- NOTE | 2020-02-23 13:58 | NUR ---
Heart Failure follow up call. No answer. LM asking patient to call this service.
== END 2020-02-20 14:55 | DRG 291 ==
LOC: ED 17:21 → MS 17:23
PROVIDERS: ADMIT Internal Medicine; ATTEND Internal Medicine
DX: I50.33 Acute on chronic diastolic (congestive) heart failure (principal); I26.99 Other pulmonary embolism without acute cor pulmonale; I48.19 Other persistent atrial fibrillation; Z20.828 Contact with and (suspected) exposure to other viral communicable diseases; E03.9 Hypothyroidism, unspecified; Z88.8 Allergy status to other drugs, medicaments and biological substances; Z79.899 Other long term (current) drug therapy; Z79.01 Long term (current) use of anticoagulants
CPT/HCPCS: 36415; 71045; 71046; 80048; 80053; 83735; 83880; 84484; 85025; 85610; 93005; 93010; 96374; 97110; 97116; 97162; 97165; 97535; 99285-25; C9803; J1940; U0003

== ENCOUNTER 2021-03-04 01:03 | Inpatient (IN) | payer MEDICARE, OTHER ==
[~2021-03-04] VITALS: Ht 162.6 cm; Wt 56.4 kg
[~2021-03-04 01:03] MED LIST changes: +DILTIAZEM ER360 MG PO; +FUROSEMIDE20 MG PO; +METOPROLOL SUC200 MG PO; +POTASSIUM CHLO10 ME1 PO; +POTASSIUM CHLOR8 ME1 PO
[2021-03-04] MEDS ORDERED: ELIQUIS5 MG PO (06:30)
--- NOTE | 2021-03-04 07:01 | NUR ---
PATIENT ARRIVED VIA STRETCHER. ABLE TO TRANSFER INDEPENDENTLY. PATIENT TO BSC AND THEN TO BED. VS STABLE. PATIENT ALERT AND ORIENTED. TOLERATING ROOM AIR.
--- NOTE | 2021-03-04 07:30 | NUR ---
PATIENT REPORT RECIEVED FROM CHARLES BABCOCK. PATIENT HAS BEEN ADMITTED TO THE CRITICAL CARE UNIT. BREATHING IS EQUAL AND UNLABORED. NASAL CANULA APPLIED 2 LITERS. OXYGEN SATURATIONS ARE WNL. CALL LIGHT WITHIN REACH NO FUTHER NEEDS.
--- NOTE | 2021-03-04 08:00 | NUR ---
PATIENT ASSESSMENT COMPLETE. PATIENT IS ALERT AND ORIENTED X4. PATIENT STATES, "I QUIT TAKING MY DOSE OF FUROSEMIDE BECAUSE I DID NOT WANT TO GET UP AND PEE IN THE MIDDLE OF THE NIGHT." LUNG SOUNDS ARE COURSE THROUGHOUT. PATIENT HAS 2 LITERS OF OXYGEN ON PER NASAL CANULA. OXYGEN SATURATIONS AND RR ARE WNL. HEART RATE IS SINUS RYHTHM 60-80 BPM. PATIENT IS AFEBIRLE. PATIENT COMPLAINS OF 3/10 PAIN WHEN SHE BREATHS. HAS GENERALIZED EDEMA THROUGHOUT AND HAS GOTTEN WEAKER IN THE PAST WEAK. CMST INTACT. IV SITE PATENT. PLAN OF CARE UPDATED. CALL LIGHT WITHIN REACH NO FUTHER NEEDS.
--- NOTE | 2021-03-04 08:15 | NUR ---
Spoke with Etelvina. She lives alone in a 1 story home. She has a cane she uses and a walker she does not use. She has a black eye and scrape on her nose from a recent fall due to snow and ice. She complains of sob several times during our vist. She states he granddaughter, Yolanda, assists. Feels she may needs help in the home in the future. States her daughter is unable to help her as she has cancer. Plans on dc to home when cleared medically. Denies financial issues at this time.
--- NOTE | 2021-03-04 09:12 | NUR ---
ROUNDING ON PATIENT, 1PA TO BSC FOR VOID. TOAST ORDERED FOR BREAKFAST. CALL LIGHT IN EASY REACH
--- NOTE | 2021-03-04 10:30 | NUR ---
PATIENT ASSISTED UP TO COMMODE. PATIENT GRANDDAUGHTER IN ROOM. UPDATED AND EDUCATED ON CARE PLAN. NO QUESTIONS AT THIS TIME. CALL LIGHT WITHIN REACH NO FUTHER NEEDS.
--- NOTE | 2021-03-04 12:00 | NUR ---
PATIENT ASSESSMENT COMPLETE. PATIENT IS ALERT AND ORIENTED X4. LUNG SOUNDS ARE COURSE THROUGHOUT. PATIENT OXYGEN TITRATED AND IS NOW ON ROOM AIR. OXYGEN SATURATIONS AND RR ARE WNL. BREATHING EQUAL AND UNLABORED. HEART RATE 70-90 BPM IN SINUS RYTHM. URINE OUTPUT IS YELLOW AND CLEAR. PATIENT LAST BM WAS 03/03 AND BOWEL TONES ARE ACTIVE. CMST INTACT. PATIENT HAS GENERALIZED WEAKNESS. EDEMA IN THE LOWER AND UPPER EXTERMITIES THAT IS GENERALIZED. IV SITE PATENT. SALINE LOCKED. GRANDDAUGHTER IN ROOM AT BEDSIDE. NO QUESTIONS AT THIS TIME. CALL LIGHT WITHIN REACH NO FUTHER NEEDS.
--- NOTE | 2021-03-04 13:25 | NUR ---
MEDICATIONS GIVEN ORDERED. PATIENT RESTING IN BED. BREATHING EQUAL AND UNLABORED. BREATHING EQUAL AND UNLABORED. OXYGEN APPLIED AT 2 LITERS WHILE PATIENT IS SLEEPING DUE TO DE SATURATIONS. CALL LIGHT WITHIN REACH NO FUTHER NEEDS.
--- NOTE | 2021-03-04 14:00 | NUR ---
DR. MARTIN IN ROOM WITH PATIENT. THIS RN IN ROOM. NO NEW ORDERS AT THIS TIME.
--- NOTE | 2021-03-04 16:30 | NUR ---
PATIENT ASSESSMENT COMPLETE. PATIENT ALERT AND ORIENTED X4. LUNG SOUNDS CLEAR IN THE UPPER LOBES AND FINE CRACKLES IN THE BASES. RR AND OXYGEN SATURATIONS WNL ON 2 LITERS NASAL CANULA. HEART RATE 70-90 BPM. URINE IS YELLOW AND CLEAR. NO BM BOWEL TONES ACTIVE. PLAN OF CARE UPDATED. NO QUESTIONS AT THIS TIME. CALL LIGHT WITHIN REACH NO FUTHER NEEDS.
--- NOTE | 2021-03-04 18:00 | NUR ---
PATIENT DONE WITH DINNER. BREATHING EQUAL AND UNLABORED ON 2 LITERS OF OXYGEN VIA NASAL CANULUA. CALL LIGHT WITHIN REACH NO FUTHER NEEDS.
--- NOTE | 2021-03-04 18:50 | NUR ---
MD NOTIFIED ABOUT PATIENT HAVING LOWER BP. MANUAL BP TAKEN 84/46. PATIENT IS SLEEPING. PATIENT DENIED FOR FEELING, DIZZY, TIRED, AND SHORT OF BREATH. NO NEW ORDERS AT THIS TIME. CALL LIGHT WITHIN REACH NO FUTHER NEEDS.
--- NOTE | 2021-03-04 19:45 | NUR ---
SHIFT REPORT RECEIVED FROM CHARLES FISHMAN. ASSESSMENT COMPLETED, PT RESTING IN BED, IS ALERT AND ORIENTED. DENIES PAIN. LUNGS CLEAR/DIM, 2L NC IN [place]. HR IRREGULAR, RATE IN 90'S. BOWEL TONES ACTIVE, DENIES NAUSEA. SKIN GROSSLY INTACT, GENERALIZED EDEMA TO EXTREMITES X4. IV SITES INTACT AND PATENT. PT DENIES NEEDS AT THIS TIME, CALL LIGHT WITHIN REACH.
--- NOTE | 2021-03-04 20:00 | NUR ---
PT'S GRANDDAUGHTER IN TO VISIT.
--- NOTE | 2021-03-04 20:31 | NUR ---
DR. PARIS IN UNIT AT THIS TIME, IS AWARE OF BLOOD PRESSURES. PT IS ASYMPTOMATIC, WILL UPDATE HIM IF SHE BECOMES SYMPTOMATIC OF IF BP CONTINUES TO DROP.
--- NOTE | 2021-03-04 21:08 | NUR ---
CALL LIGHT ANSWERED, PT UP TO BSC WITH SBA. VOIDED 400ML YELLOW URINE AND DID OWN PERICARE BEFORE RETURNING TO BED. FRESH ICE WATER PROVIDED, STILL WITHIN FLUID RESTRICTION. PT'S GRANDDAUGHTER HAS GONE HOME FOR THE NIGHT. PT DENIES FURTHER NEEDS, CALL LIGHT WITHIN REACH.
--- NOTE | 2021-03-04 23:03 | NUR ---
PT RESTING IN BED WITH EYES CLOSED. NO APPARENT DISTRESS, RESPIRATIONS EVEN AND UNLABORED, 2L O2 VIA NC REMAINS IN PLACE. VITAL SIGNS STABLE.
--- NOTE | 2021-03-05 00:04 | NUR ---
PT SLEEPING, LIGHTLY SNORING. NO APPARENT DISTRESS, RESPIRATIONS EVEN AND UNLABORED, 2L O2 VIA NC IN PLACE. HR REMAINS IN A.FIB PER MONITOR, HR 85-110. WILL ALLOW FOR REST AND CONTINUE TO MONITOR.
--- NOTE | 2021-03-05 02:14 | NUR ---
PT CONTINUES TO SLEEP, NO APPARENT DISTRESS. VITAL SIGNS STABLE.
--- NOTE | 2021-03-05 04:15 | NUR ---
PT CONTINUES TO SLEEP, NO APPARENT DISTRESS. HR REMAIN 70-90'S. RESPIRATIONS EVEN AND UNLABORED, 2L O2 IN PLACE. VITAL SIGNS STABLE. WILL ALLOW FOR REST AND CONTINUE TO MONITOR.
--- NOTE | 2021-03-05 06:26 | NUR ---
PT AWOKEN BY ECOLOGIST FOR MORNING LABS. PT THEN UP TO BSC WITH SBA, VOIDED 400ML YELLOW URINE AND PERFORMED OWN PERICARE. STANDING WEIGHT OBTAINED BEFORE PT RETURNED TO BED. PT REMAINS AFEBRILE, LUNGS CLEAR/DIM, 2L O2 IN PLACE. PT REPORTS THAT SHE FEELS MUCH BETTER THIS MORNING, CONTINUES TO REPORT PLEURITIC PAIN WITH DEEP BREATHING, PT DOING I.S. WITHOUT PROMPTING. BREAKFAST ORDER CALLED TO KITCHEN. FRESH ICE WATER PROVIDED AND FLUID RESTRICTION RESTARTED FOR THE DAY. PT WASHED FACE AND IS NOW APPLYING DEODORANT AND LOTION, DENIES FURTHER NEEDS AT THIS TIME. CALL LIGHT WITHIN REACH.
--- NOTE | 2021-03-05 07:15 | NUR ---
PATIENT REPORT RECEIVED FROM CHARLES ALAS. PATIENT IS RESTING IN BED. BREATHING IS EQUAL AND UNLABORED. CALL LIGHT WITHIN REACH NO FUTHER NEEDS.
--- NOTE | 2021-03-05 08:00 | NUR ---
PATIENT ASSESSMENT COMPLETE. UP IN BED EATING BREAKFAST. PATIENT SAYS SHE HAD A GOOD NIGHT AND GOT SOME REST. ALERT AND ORIENTED X4. LUNG SOUNDS ARE CLEAR IN THE UPPER LOBES AND DIMINISHED IN THE BASES. RR AND OXYGEN SATURATIONS ARE WNL. PATIENT IS ON 1 LITER VIA NASAL CANULA. HEART RATE IS A-FIB BETWEEN 80-100 BPM. AFEBIRLE. PATIENT DENIES SHORTNESS OF BREATH. PATIENT HAS PLEURITIC PAIN WHEN TAKING A DEEP BREATH. URINE OUTPUT IS CLEAR AND YELLOW. NO BM. BOWEL TONES ARE ACTIVE. PATIENT HAS GENERALIZED EDEMA IN EXTERMITIES. CMST INTACT. PLAN OF CARE UPDATED. CALL LIGHT WITHIN REACH NO FUTHER NEEDS.
--- NOTE | 2021-03-05 10:43 | NUR ---
PATIENT UP TO BEDSIDE COMMODE. VOIDED. PATIENT INCONTIENT IN BRIEF AND CHANGED. PATIENT BACK TO BED. CALL LIGHT WITHIN REACH NO FUTHER NEEDS.
--- NOTE | 2021-03-05 12:00 | NUR ---
PATIENT ASSESSMENT COMPLETE. PATIENT IS ALERT AND ORIENTED. LUNG SOUNDS ARE CLEAR IN THE UPPER LOBES AND DIMINISHED IN THE BASES. OXYGEN SATURATIONS AND RR ARE WNL. 2 LITERS OF OXYGEN VIA NASAL CANULUA. PATIENT HEART RATE IS 100-130 BPM IN A-FIB. AFEBIRLE. URINE OUTPUT IS YELLOW AND CLEAR. NO BM. BOWEL TONES ACTIVE. PLAN OF CARE UPDATED. CALL LIGHT WITHIN REACH NO FUTHER NEEDS.
--- NOTE | 2021-03-05 12:10 | NUR ---
PATIENT HR SUSTAINING IN THE 110-130'S BPM. MD NOTIFIED. NEW ORDERS IN MAY. CALL LIGHT WITHIN REACH NO FUTHER NEEDS.
[2021-03-05] MEDS ORDERED: LASIX40 MG PO (13:37)
[2021-03-05] MEDS ORDERED: TOPROL XL100 MG PO (13:38)
[2021-03-05] MEDS ORDERED: K-TAB ER20 MEQ PO (13:41)
--- NOTE | 2021-03-05 13:51 | NUR ---
medications reocnciled
--- NOTE | 2021-03-05 14:00 | NUR ---
PATIENT RESTING IN BED. BREATHING EQUAL AND UNLABORED. OXYGEN TITRATED DOWN TO 1 LITER. SATURATIONS WNL. GRANDSON IN ROOM. CALL LIGHT WITHIN REACH NO FUTHER NEEDS.
--- NOTE | 2021-03-05 16:00 | NUR ---
PATIENT ASSESSMENT COMPLETE. PATIENT RESTING IN BED. ALERT AND ORIENTED X4. LUNG SOUNDS ARE CLEAR IN THE UPPER LOBES AND DIMINISHED IN THE BASES. PATIENT IS ON 1 LITER OF OXYGEN. OXYGEN SATURATIONS AND RR ARE WNL. HEART RATE IS 90-110 BPM CURRENTLY. PATIENT IS IN A-FIB. URINE OUTPUT IS YELLOW AND CLEAR. NO BM. BOWEL TONES ACTIVE. AFEBRILE. CMST INTACT. GENERALIZED EDEMA IN THE UPPER AND LOWER EXTERMITIES. PLAN OF CARE UPDATED. CALL LIGHT WITHIN REACH NO FUTHER NEEDS.
--- NOTE | 2021-03-05 17:41 | EKG ---
[facility] [address] [facility] [place] [address] Signed Atrial fibrillation with slow ventricular response Left axis deviation Low voltage QRS Cannot rule out Anterior infarct (cited on or before 30-JAN-2020) Abnormal ECG When compared with ECG of 14-FEB-2020 17:34, Vent. rate has decreased BY 41 BPM QRS axis shifted left Questionable change in initial forces of Septal leads Confirmed by VISH PARIS DO ([id number]) on 03/05/2021 5:40:55 PM Electronically Signed By: VISH PARIS DO 03/05/21 1741 PATIENT NAME: EL RAMOS Electrocardiogram DATE OF : 32 PHYSICIAN: VISH PARIS DO REPORT #: [id number] REPORT IS CONFIDENTIAL AND NOT TO BE RELEASED WITHOUT AUTHORIZATION
--- NOTE | 2021-03-05 20:00 | NUR ---
FAMILY VISITING WITH PT AT BEDSIDE. PT IS ALERT AND SMILING. EDUCATED ON POC FOR EVENING AND NIGHTTIME MEDICATIONS. PT DENIES NEEDS AT THIS TIME. WILL CONTINUE TO MONITOR.
--- NOTE | 2021-03-05 23:05 | NUR ---
PT UP TO BSC WITH SUPERVISION. PT DOES NOT REQUIRE TOILETING ASSISTANCE. PT DENIES FURHTER CURRENT NEEDS. WILL CONTINUE TO MONITOR.
--- NOTE | 2021-03-06 03:13 | NUR ---
PT RESTING QUIETLY EYES CLOSED. O2 SATS DROPPED TO 85% ON 1L NC WHILE SLEEPING. INCREASED O2 TO 2L. O2 SATS NOW 97%. WILL TITRATE O2 INDICATED.
--- NOTE | 2021-03-06 04:45 | NUR ---
PT REMAINS SLEEPING. VITALS STABLE. WILL CONTINUE TO MONITOR.
--- NOTE | 2021-03-06 07:00 | NUR ---
PATIENT REPORT RECIEVED FROM CHARLES PHIPPS. PATIENT IS RESTING IN BED. BREATHING EQUAL AND UNLABORED. CALL LIGHT WITHIN REACH NO FUTHER NEEDS.
--- NOTE | 2021-03-06 08:00 | NUR ---
PATIENT ASSESSMENT COMPLETE. PATIENT IS AWAKE EATING BREAKFAST. PATIENT STATES SHE HAD A GOOD NIGHT OF REST. ALERT AND ORIENTED X4. LUNG SOUNDS ARE CLEAR IN THE UPPER AND DIMINISHED IN THE BASES. PATIENT TITRATED DOWN TO ROOM. OXYGEN SATURATIONS AND RR ARE WNL. HEART RATE IS 80-100 BPM IN A-FIB. AFEBRILE. GENERALIZED EDEMA HAS DECREASED TRACE AMOUNT. PATIENT URINE OUTPUT IS YELLOW AND CLEAR. NO BM. BOWEL TONES ACTIVE. BOWEL CARE MEDICATIONS GIVEN. PATIENT DENIES SHORTNESS OF BREATH AND PAIN. CMST INTACT. PLAN OF CARE UPDATED. NO QUESTIONS AT THIS TIME. CALL LIGHT WITHIN REACH NO FUTHER NEEDS.
--- NOTE | 2021-03-06 09:50 | NUR ---
PATIENT WALKED INTO BATHROOM. VS STABLE. PATIENT BREATHING IS EQUAL AND UNLABORED. OXYGEN SATURATIONS AND RR WNL. DENIES FEELING SHORT OF BREATH. NO PAIN. CALL LIGHT WITHIN REACH NO FUTHER NEEDS.
--- NOTE | 2021-03-06 10:53 | NUR ---
PT CALL LIGHT ON. PT CONTINUES TO REPORTS FEELINGS OF CONSTIPATION AND REPORTS SHE FEELS "IMPACTED." AWAITING STOOL SOFTENER VARIFICATION FROM PHARAMCY. PT REQUESTS TO GET UP TO RESTROOM. STAND BY ASSIST UP TO RESTROOM. PT GIVEN TIME AND PRIVACY. CALL LIGHT WITHIN REACH. PTS PRIMARY RN, JAMES, UPDATED.
--- NOTE | 2021-03-06 11:10 | NUR ---
PRN SUPPOSITORY GIVEN. PATIENT STILL FEELS IMPACTED. CALL LIGHT WITHIN REACH NO FUTHER NEEDS.
--- NOTE | 2021-03-06 11:32 | NUR ---
PATIENT ASSESSMENT COMPLETE. ALERT AND ORIENTED X4. PATIENT LUNG SOUNDS ARE CLEAR IN THE UPPER LOBES AND DIMINISHED IN THE BASES. RR AND OXYGEN SATURATIONS WNL ON ROOM AIR. PATIENT STILL HAS PLUREITIC PAIN WHEN TAKING A DEEP BREATH. HEART RATE 80-100 BPM IN A-FIB. AFEBRILE. URINE OUTPUT IS YELLOW AND CLEAR. PATIENT HAD BM. BOWEL TONES ACTIVE. PLAN OF CARE UPDATED. NO QUESTIONS AT THIS TIME. GRANDDAUGHTER PRESENT IN ROOM. CALL LIGHT WITHIN REACH NO FUTHER NEEDS.
--- NOTE | 2021-03-06 15:32 | NUR ---
PATIENT REPORT GIVEN TO CHARLES BULLOCK. PATIENT WILL BE TRANSPORTED TO MEDICAL SURGICAL UNIT.
--- NOTE | 2021-03-06 15:34 | NUR ---
REPORT RECEIVED FROM CHARLES FISHMAN. AWAITING PTS ARRIVAL TO UNIT.
--- NOTE | 2021-03-06 16:20 | NUR ---
PT ARRIVED FROM CCU BY BED. PT DENIES PAIN AND NAUSEA. PT ALERT AND OREITNED AND RESPONDING TO QUESTIONS APPROPRAITLY. PT REPORTS HER IV SITES ARE "HURTING" AND LEAKING. IV'S ASSESSED, LEFT AC IV PAINFUL WITH FLUSH AND LEAKING, LEFT FORARM LEAKING. BOTH IV'S DC'D PER PROTOCOL. GAUZE AND COBAN APPLIED. NEW IV STARTED TO RIGHT FORARM. PT TOELRATED WELL. BRISK BLOOD RETURN NOTED. IV SALINE LOCKED PER PROTOCOL, ALCOHOL CAP APPLIED. PT UP TO RESTROOM WITH STAND BY ASSIST. REPORT OCCATIONAL WEAKNESS BUT STATES SHE FEELS HER STRENGTH IS AT HER BASELINE. LUNG SOUNDS CLEAR ALTHOUGH PROMINATLY DEMINISHED IN RIGHT LOWER LOBE. PT REPORTS WHEN SHE FELL SHE LANDED ON LEFT SIDE. PT EDUCATION DONE REGARDING FALL PREVENTION AND USING CALL LIGHT. PT VERBALIZES UNDERSTANDING. PT DENIES ADDITIONAL REQUESTS OR COMPLAINTS. ICE WATER REFILLED, PT WITHIN FLUID RESTRICTION THIS SHIFT. NO ADDITIONAL REQUESTS OR COMPLAINTS. CALL LIGHT WIHTIN REACH. BED RAILS UP.
--- NOTE | 2021-03-06 17:45 | NUR ---
THIS RN TO ROOM TO CHECK ON PT. PT RESTING IN BED. HEAD OF BED ELEVATED TO 42 DEGREES. PT FINIHSED WITH DINNER, ABLE TO EAT 75%. PT DENIES PAIN, NASUEA AND SHORTNESS OF BREATH. PT REPORTS SHE IS ANTICIPATING A VISIT FROM HER GRANDDAUGHTER. PT DENIES ADDIITONAL REQUESTS OR COMPLAINTS. CALL LIGHT CelframeIN REACH. BED RAILS UP.
--- NOTE | 2021-03-06 18:24 | NUR ---
PATIENT IN BED TALKING ON PHONE, VISITOR IN ROOM. VITALS AND I&O'S CHARTED. CALL LIGHT IN REACH. NO FURTHER NEEDS AT THIS TIME.
--- NOTE | 2021-03-06 18:36 | NUR ---
PT TRANSFERED FORM CCU THIS SHFIT FOR CHF EXACERBATION, AND RIGHT PLEURAL EFFUSION. PT UP WITH STAND BY ASSIST TO RESTROOM MULITPLE TIMES THIS SHIFT. PT TOELRATING 2 GRM SODIUM DIET. PT REPORTED CONSITPATION, SUPOSITORY GIVEN WITH GOOD RESULTS. PT TOELRATING 1600ML FLUID RESTRICION WELL. CHEST X-RAY REPEATED THIS MORNING AND SCHEDULED TO REPEAT AGAIN TOMORROW. PT REMAINS ON ROOM AIR, LUNG SOUNDS CLEAR, VERY DEMINISED ON RIGHT LOWER SIDE. IV LASIX GIVE THIS SHIFT, PT VOIDIGN QUANTITY SUFFICIENT. PT USES CALL LIGHT AND MAKES NEEDS KNOWN.
--- NOTE | 2021-03-06 19:27 | NUR ---
THIS RN RECEIVED SHIFT REPORT FROM CHARLES BULLOCK. PATIENT RESTING QUIETLY IN BED AND HER FAMILY HAS JUST GONE HOME. PATIENT DENIES PAIN AND NAUSEA AND SAYS,"I'M JUST TIRED!" PATIENT DENIES ANY CARE NEEDS AT THIS TIME. CALL LIGHT IS IN REACH AND LIGHTS TURNED DOWN AT PATIENT'S REQUEST.
--- NOTE | 2021-03-06 20:20 | NUR ---
V/S AND I&O TAKEN AND RECORDED. SBA USING CANE TO THE BATHROOM AND BACK TO BED.WARM BLANKET PROVIDED. CALL LIGHT WITHIN REACH.
--- NOTE | 2021-03-06 20:30 | NUR ---
PATIENT DENIES PAIN AND NAUSEA. BACK TO BED AFTER 1PA TO THE RESTROOM AND BACK TO BED WITH ASSISTANCE FROM SHAR PETERSEN. PO CARDIZEM HELD B/P PARAMETERS WERE TOO LOW TO GIVE. PATIENT GIVEN A WARM BLANKET AND NEW ICE WATER. LIGHTS TURNED DOWN. PATIENT IS A+O, CALLS APPROPRIATELY, CALL LIGHT IS IN REACH. NO OTHER CARE NEEDS AT THIS TIME.
--- NOTE | 2021-03-06 22:25 | NUR ---
PATIENT RESTING QUIETLY IN SEMI-FOWLERS POSITION, EYES CLOSED, RESPIRATIONS ARE REGULAR AND EVEN, AND CALL LIGHT IS IN REACH. NO CARE NEEDS NOTED AT THIS TIME.
--- NOTE | 2021-03-07 00:14 | NUR ---
PATIENT RESTING QUIETLY ON HER RIGHT SIDE, EYES CLOSED, RESPIRATIONS ARE REGULAR AND EVEN, EYES ARE CLOSED, AND CALL LIGHT IS IN REACH. NO CARE NEEDS AT THIS TIME.
--- NOTE | 2021-03-07 02:20 | NUR ---
THIS RN AND RENE PETERSENA IN TO DUE VS AND ASSESSMENT. ASSESSMENT REMAINS UNCHANGED AND VS ARE STABLE. B/P IS LOW ENOUGH CARDIZEM WAS ONCE AGAIN HELD. PATIENT DENIES PAIN AND DENIES THE NEED TO VOID AND JUST WANTS TO GO BACK TO SLEEP. 2AM LOPRESSOR GIVEN. LIGHTS TURNED DOWN AND CALL LIGHT IS IN REACH.
--- NOTE | 2021-03-07 03:05 | NUR ---
PATIENT RESTING QUIETLY ON HER RIGHT SIDE, EYES CLOSED, RESPIRATIONS ARE REGULAR AND EVEN, AND CALL LIGHT IS IN REACH. PATIENT HAS NO CARE NEEDS AT THIS TIME.
--- NOTE | 2021-03-07 05:54 | NUR ---
PATIENT HAS BEEN UP TO VOID TWICE THIS SHIFT. STANDING WEIGHT IS DOWN TO 57.8KG FROM 59.9KG YESTERDAY. PATIENT STILL HAS DIMINISHED LUNG SOUNDS IN ALL LUNG HURD ON THE RIGHT SIDE, BUT IS CLEAR IN THE LEFT. PATIENT SLEPT WELL AND VS HAVE REMAINED STABLE THOUGHT THE NIGHT, BUT SBP HAS REMAINED BELOW 110 AND ALL CARDIZEM HAS BEEN JEROME FOR THIS SHIFT. AM MEDS JUST GIVEN AND FIRST WATER FOR THE DAY GIVEN. PATIENT MAINTAINING FLUID RESTRICTION. CALL LIGHT IN REACH AND LIGHTS TURNED DOWN AT PATIENT'S REQUEST.
--- NOTE | 2021-03-07 07:07 | NUR ---
REPORT RECEIVED FROM CHARLES GERONIMO. PT RESTING IN BED. HEAD OF BED AT 32 DEGREES. PT DENIES PAIN AND NAUSEA. BREAKFAST ORDER PLACED. NO ADDITIONAL REQUESTS OR COMPLAINTS. CALL LIGHT WITHIN REACH. BED RAILS UP.
--- NOTE | 2021-03-07 07:30 | NUR ---
PT AWAKE AND IN CHAIR EATING BREAKFAST. PT WANTS TO HEAR FROM THE DR BEFORE AGREEING TO A SHOWER LATER. CALL LIGHT WITHIN REACH. WHITE BOARD UPDATED. NO FURTHER NEEDS AT THIS TIME.
--- NOTE | 2021-03-07 07:35 | NUR ---
MORNING ASSESSMENT AND MEDICATION DUE. PT RESTING IN BED. ALERT AND ORIENTED. PT DENIES PAIN "EXCEPT IF I TAKE REALLY DEEP BREATH, OTHERWISE IT DOESN'T HURT AT ALL." PT DENIES NEED FOR PAIN MEDICAITON. PT DENIES NAUSEA. IV ASSESSED, WNL. NO S/S OF PHLEBITIS NOTED. PT UP TO CHAIR WITH STAND BY ASSIST, CANE USED. PT DENIES FEELINGS OF WEAKNESS, REPORTS HER STRENGTH FEELS "PRETTY NORMAL FOR ME." LUNG SOUNDS CLEAR BUT PROMINANTLY DEMINISHED IN RIGHT LOWER LOBE. X-RAY TO BEDSIDE FOR IMAGING. PT REMAINS ON ROOM AIR WITH OXYGEN SAUTRATIONS OF 92%. WORK OF BREATHING WNL. TRACHEA MIDLINE. PT DENIES FEELINGS OF SHORTNESS OF BREATH. SMALL AMOUNTS OF GENERALIZED EDEMA NOTED IN EXTRTEMITIES. PT REMAINS UP TO CHAIR. NO ADDITIONAL REQUESTS OR COMPLAINTS AT THIS TIME. CALL LIGHT WITHIN REACH.
--- NOTE | 2021-03-07 09:30 | NUR ---
Spoke with Etelvina. Feeling better today, resp. not labored. She had an xray this am and awaiting to hear from Dr. Newby if has a new plan. No o2 on at my visit.
--- NOTE | 2021-03-07 09:36 | NUR ---
PT IS INDEPENDENT WITH TRANSFER BACK TO BED. PT PLANS TO NAP RIGHT NOW. FRESH ICE WATER GIVEN. NO FURTHER NEEDS AT THIS TIME.
--- NOTE | 2021-03-07 09:49 | NUR ---
THIS RN TO ROOM TO CHECK ON PT. PT BACK TO BED, RESTING WITH EYES CLOSED, RESPIRATIONS EVEN AND UNALBORED. PT AWAKENS TO MOVEMENT IN THE ROOM. NEW MEDICATION ORDERS GIVEN (SEE MAR). PT REPORTS "THAT LASIX DOESN'T SEEM TO BE WORKING GOOD IT NORMALLY DOES." IV FLUSHED AND SALINE LOCKED. PT DENEIS ADDITIONAL REQUESTS OR COMPLAINTS. CALL LIGHT WITHIN REACH. BED RAILS UP.
--- NOTE | 2021-03-07 09:56 | NUR ---
MESSAGE SENT TO DR. WELLINGTON CHANG PTS BLOOD PRESSURES AND THAT MORNING DILTIAZEM WAS HELD.
--- NOTE | 2021-03-07 09:57 | NUR ---
Cardiac stress test completed . See stress test ECG reports for further information. Report and ECG will be sent to [facility] for reading.
--- NOTE | 2021-03-07 10:16 | NUR ---
Assisted patient up to BR with SBA and cane, steady gait. Call light in reach.
--- NOTE | 2021-03-07 12:44 | NUR ---
DR. MARTIN TO BEDSIDE TO DISCUSS PLAN OF CARE WITH PT. THOROCENTESIS PLANNED, PROCEEDURE EXPLAINED TO PT BY DR. MARTIN, CONSENT SIGNED. THIS RN TO ROOM TO ASSIST WITH PROCEEDURE. PT POSITIONED WITH ARMS OVER TABLE IN TRIPOD POSITION. XYLOCANE WITH EPI GIVEN SUB Q FOR PROCEEDURE. 1000ML SEROUS FLUID REMVOED VIA THOROCENTESIS BY DR. MARTIN. 50ML SENT TO LAB FOR PROCESSING. VITAL SIGNS REMAINSTABLE PRE, DURING AND POST PROCEEURE (SEE RECORD). BANDAID APPLIED BY DR. MARTIN. FOLLOW UP X-RAY TAKEN. PT UP TO RESTROOM WITH STAND BY ASSIST, VOIDS 250ML WITHOUT ISSUE. STAND BY ASSIST BACK TO BED. MEDICATIONS GIVEN. PT TALKING WITH FAMILY ON PHONE TO UPDATE THEM. PT ABLE TO TALK IN MULTIPLE SENTENCES WITH OUT STOPPING FOR BREATH. NO ADDITIONAL REQUESTS OR COMPLAINTS. AT THIS TIME. CALL LIGHT WITHIN REACH. BED RAILS UP.
--- NOTE | 2021-03-07 14:07 | NUR ---
AFTERNOON ASSESSMENT AND MEDICATION DUE. THIS RN TO ROOM, PT RESTING IN BED WITH HEAD OF BED ELEVATED TO 15 DEGREES. PT DENIES PAIN AND NAUSEA. PT REPORTS OCCATIONAL PAIN ON LEFT SIDE WITH DEEP BREATHING "IT'S BEEN THERE, OTHERWISE IT DOESN'T HURT." PT UP TO RESTROOM WITH STAND BY ASSIST. PT STEADY ON FEET WITH CANE USE. LUNG SOUNDS CLEAR. MORE AIR MOVEMENT HEARD IN RIGHT LOWER LOBE COMPAIRED WITH THIS MORNING. PT DENIES FEELINES OF SHORTNESS OF BREATH. BADNAID REMAINS INTACT, MINIMAL SEROUS FLUID DRAINAGE NOTED ON BANDAID. PT REMAINS ON ROOM AIR WITH OXYGEN SATURATIONS ABOVE 92%. PT VISITING WITH HER GRANDDAUGHTER. VITAL SIGNS STABLE, MEDICATIONS GIVEN. PT DENIES ADDITIONAL REQUESTS OR COMPLAINTS. CALL LIGHT WITHIN REACH. BED RAILS UP.
--- NOTE | 2021-03-07 15:28 | NUR ---
THIS RN TO ROOM TO CHECK ON PT. PT WORKING ON CROSSWORD PUZZLES. PT DENIES PAIN, NAUSEA, AND SHORTNESS OF BREATH. PT REPORTS SHE "WAS BAD AND HAD MY GRANDDAUGHTER GET ME UP TO THE RESTROOM." PT REMINDED OF FALL PRECAUTIONS. 200ML CLEAR YELLOW URINE NOTED IN HAT. DR. PARIS TO BEDSIDE TO UPDATE PT ON RESULTS AND PLAN OF CARE. PT CONTINUES RESTING IN BED. HEAD OF BED ELEVATED TO 37 DEGREES. NO ADDIITONAL REQUESTS OR COMPLAINTS. CALL LIGHT WITHIN REACH.
--- NOTE | 2021-03-07 15:58 | NUR ---
PT HERE FOR CHF EXACERBATION AND RIGHT SIDED PLEURAL EFFUSION. PT UP WITH STAND BY ASSIST AND CANE THIS SHIFT TO RESTROOM AND CHAIR FOR MEALS. PT TOLERATING 2GM SODIUM DIET AND 1600ML FLUID RESRICTION WELL. BOWEL MOVEMENT NOTED THIS SHIFT. LUNG SOUNDS IMPROVING AFTER THOROCENTESIS THIS SHIFT. 1000ML SERIOUS FLUID REMOVED BY DR. MARTIN THIS SHIFT, SAMPLES SENT TO LAB AND INCITE PATHOLOGY. PT DENIES PAIN, NAUSEA, AND FEELINGS OF SHORTNESS OF BREATH THIS SHIFT. PHYSICAL THERAPY CONSULTATION ORDERED THIS SHIFT. IV LASIX GIVEN, PT VOIDING WELL. PT USES CALL LIGHT AND MAKES NEEDS KNOWN.
--- NOTE | 2021-03-07 16:23 | NUR ---
THIS RN TO ROOM TO CHECK ON PT. PT REPORTS PHYSICAL THERAPY "WENT REALLY WELL." PT STATES "HE MADE ME WALK AROUND AND UP STAIRS, I DID OK." PT BACK TO BED AT THIS TIME, WORKING ON CROSSWORD PUZZLE. PT DECLINES TIME UP TO CHAIR BUT AGREES TO GET UP FOR DINNER. NO ADDITIONAL REQUESTS OR COMPLAINTS. CALL LIGHT WITHIN REACH. BED RAILS UP.
--- NOTE | 2021-03-07 16:55 | NUR ---
MED REC COMPLETE
--- NOTE | 2021-03-07 17:15 | NUR ---
DINNER ARRIVED. DELIVERED TO PT. STAND BY ASSIST UP TO RESTROOM, UNDERWARE CHANGED BY PT. PT PERFORMES SELF MICHELLE CARE. PT UP TO CHAIR FOR DINNER. PT CONTINUES TO DENY PAIN, NAUSE OR SHORTNESS OF BREATH. RR INCREASES TO 28 WITH ACTIVITY, PT RECOVERS QUICKLY. PT DENIES ADDITIONAL REQUESTS OR COMPLAINTS. CALL LIGHT WITHIN REACH.
--- NOTE | 2021-03-07 18:08 | NUR ---
PATIENT SITTING IN CHAIR RESTING. VITALS AND I&O'S CHARTED. CALL LIGHT IN REACH. NO FURTHER NEEDS AT THIS TIME.
--- NOTE | 2021-03-07 19:19 | NUR ---
REPORT GIVEN TO THIS RN BY CHARLES BULLOCK. PATIENT GETTING BACK INTO BED AND USING THE RESTROOM. CHARLES BULLOCK REMAINS IN THE ROOM WITH THE PATIENT TO GET HER BACK TO BED.
--- NOTE | 2021-03-07 19:27 | NUR ---
REPORT GIVEN TO CHARLES GERONIMO. PT REMAINS UP TO CHAIR AND REQUESTS TO GET BACK TO BED. PT UP TO RESTROOM WITH STAND BY ASSIST AND CANE. SMALL 0.25CM STAGE 2 PRESSURE ULCER NOTED OVER COCCYX PROMINANT BONE AREA. GLUTEAL AREA NOTED TO BE REDDENED. ALLEVYN APPLIED TO COCCYX OVER WOUND. BARRIER CREAM APPLIED TO GLUTEAL AREA. EDUCATION DONE WITH PT REGARDING STAYING OF HER BACKSIDE. PT REPORTS SHE DOES NOT WANT TO LIE ON HER SIDE "BECAUSE MY LEGS FALL ASLEEP. PT AGREES TO HAVE PILLOW PROPPED UNDER LEFT SIDE. PILLOW IN PLACE TO LEFT SIDE TO RELEIVE PRESSURE AND FLOAT COCCYX AREA. JUANPABLO UPDATED. PT REPORTS SHE FEELS UNCOMFORTABLE WITH A MALE LOOKING AT THE WOUND. ROBERTO RODRIGUES RN UPDATED, AND STATES SHE WILL FOLLOW UP WITH WOUND THIS EVENING. PT DENIES ADDITIONAL REQUESTS OR COMPLAINTS. PT REPORTS SHE FEELS COMFORTALBE. CALL LIGHT WITHIN REACH. BED RAILS UP.
--- NOTE | 2021-03-07 19:58 | NUR ---
PATIENT ASSESSMENT COMPLETED BY THIS RN. MUCH IMPROVED RT LUNG SOUNDS AFTER TODAYS PROCEDURE. LUNGS ARE CLEAR BILAT EXCEPT FOR SOME FINE CRACKLES IN THE RIGHT LUNG BASE. BANDAID STILL IN PLACE ON RIGHT BACK OVER NEEDLE SITE. PATIENT DENIES PAIN. VS ARE STABLE, BUT SBP BELOW 110 SO CARDIZEM HELD AGAIN TONIGHT. CALL LIGHT IN REACH AND ICE WATER REFILLED. PATIENT DEIES ANY OTHER CARE NEEDS AT THIS TIME. LIGHTS TURNED DOWN.
--- NOTE | 2021-03-07 20:22 | NUR ---
PATIENT CALLED TO USE THE BEDSIDE COMMODE. 2 PA. THIS ENGINEER INTERN AND PRIMARY RN EMILY. BED LINEN CHANGED DUE TO PATIENT HAD BOWEL MOVEMENT ON BED SHEET. PATIENT DID HAVE A BOWEL MOVEMENT IN THE COMMODE AND URINATED. PATIENT IS BACK IN BED. V/S AND I&O'S TAKEN AND RECORDED. CALL LIGHT AND SIDE TABLE WITHIN REACH.
--- NOTE | 2021-03-07 21:35 | NUR ---
PT CALLED, SBA WITH CANE TO BATHROOM AND BACK. CALL LIGHT WITHIN REACH.
--- NOTE | 2021-03-07 23:40 | NUR ---
PATIENT RESTING QUIETLY ON HER RIGHT SIDE, EYES ARE CLOSED, RESPIRATIONS ARE REGULAR AND EVEN, AND CALL LIGHT IS IN REACH.
--- NOTE | 2021-03-08 01:39 | NUR ---
THIS RN WOKE PATIENT UP FOR 2AM VS AND PATIENT'S SBP STILL BELOW 110 SO CARDIZEM WAS HELD, BUT METOPROLOL GIVEN. PATIENT DENIES ANY PAIN OR ANY OTHER CARE NEEDS AT THIS TIME. CALL LIGHT IN REACH.
--- NOTE | 2021-03-08 03:45 | NUR ---
PATIENT RESTING QUIETLY ON HER RIGHT SIDE, RESPIRATIONS ARE REGULAR AND EVEN, EYES ARE CLOSED, AND CALL LIGHT IS IN REACH. NO CARE NEEDS NOTED AT THIS TIME.
--- NOTE | 2021-03-08 05:30 | NUR ---
SHAR WALKER ASSISTED THIS RN WITH AM VS, I+O, TOILETING, AND AM STANDING WEIGHT. PATIENT IS DOWN MORE THAN ANOTHER KG THIS AM ON STANDING SCALE. VS STABLE. LUNGS STILL CLEAR EXCEPT FOR SOME FINE CRACKLES IN THE RIGHT BASE. PATIENT 1PA WITH CANE TO THE BATHROOM. BACK IN BED NOW AND TURNED TO THE RIGHT WITH A PILLOW UNDER LEFT HIP PATIENT REQUESTED. COCCYX ALLEVYN STILL IN PLACE. CALL LIGHT IN REACH AND LIGHTS TURNED DOWN REQUESTED.
--- NOTE | 2021-03-08 07:14 | NUR ---
REPORT RECEIVED FROM CHARLES GERONIMO. PT RESTING IN BED ON RIGHT SIDE, SUPPORTED WITH PILLOWS, HEAD OF BED ELEVATD TO 30 DEGREES, WITH EYES CLOSED. RESPIRATIONS EVEN AND UNLABOED. BED RAILS UP. CALL LIGHT WITHIN REACH. PT ALLOWED TO REST.
--- NOTE | 2021-03-08 07:54 | NUR ---
PT AWAKE AND READY TO USE THE RESTROOM, PT SAT UP ON EDGE OF BED AND THEN WALKED INDEPENDENTLY TO THE RESTROOM WITH A CANE. PT IS NOW UP IN CHAIR EATING BREAKFAST. THERE IS A PLAN TO SHOWER LATER THIS MORNING. WHITE BOARD UPDATED. CALL LIGHT WITHIN REACH. NO FURTHER NEEDS AT THIS TIME.
--- NOTE | 2021-03-08 07:59 | NUR ---
MORNING ASSESSMENT AND MEDICATION DUE. PT NOTED TO BE DROPING TO 87% ON ROOM AIR. PT IN PRONE POSITION IN BED. PT ADVISED TO PLACE HIS OXYGEN BACK ON. PT REPORTS HE NEEDS HELP TO DO THIS. THIS RN TO ROOM. PT UP TO SIT ON EDGE OF BED AND OXGYEN SATURATIONS CLIMBS TO 92%. PT PLACED ON 2L O2 BY NC WITH OXYGEN SATURATION CLIMBING TO 95-96%. BREAKFAST DELIVERED TO PT. PT DENIES PAIN AND NAUSEA. PT REPORTS ONLY ONE EPISODE OF DIARRHEA LAST NIGHT. IVs ASSESSED, WNL, BOTH SALINE LOCKED WITH ALOCHOL CAP APPLIED. FIELD START IV LEFT IN PLACE PER PT REQUEST. PT ALERT AND ORIENTED TO ALL. LUNG SOUNDS CLEAR IN ALL LOBES. PT DEMONSRATES USE OF I.S. REACHING 1500ML X5. CPOX REMAINS IN PLACE. PT EATING BREAKFAST, EDUCATION DONE WITH PT REGARDING WHY ORANGE JUICE IS NOT ADVISED GIVEN HIS BLOOD SUGAR. PT DEMONSTRATES UNDERSTANDING AND REQUESTS TEA. NO ADDITIONAL REQUESTS OR COMPLAINTS. CALL LIGHT WITHIN REACH. BED RAILS UP.
--- NOTE | 2021-03-08 08:16 | NUR ---
PATIENT UP TO BATHROOM, SITTING UP IN CHAIR FOR BREAKFAST.
--- NOTE | 2021-03-08 09:00 | NUR ---
Spoke with Etelvina. She plans on possible dc today. States Dr. Newby cleared her for dc and she will speak with Dr. Tovar later. Pt states she is breathing better. Daughter will transport her.
--- NOTE | 2021-03-08 09:00 | NUR ---
MORNING ASSESSMENT AND MEDICATION DUE. PT UP TO CHAIR, FINISHED WITH BREAKFAST. PT SITTING ON PILLOW TO LEAN TO LEFT SIDE, PT REPORTS "IT REALLY HELPS WITH THAT SORE ON MY BACKSIDE." ALLEVYN REMOVED AND SORE VISULAIZED. IMPROVED FROM YESTERDAY. <0.25 CM STAGE 2 PRESSURE SORE NOTED RIGHT OVER BONE. ALLEVYN IN PLACE, WILL CHANGE AFTER SHOWER. PT DENIES PAIN AND NAUSEA. PT ALERT AND ORIENTED TO ALL. HEART TONES IRREGULAR PER AFIB, MEDICATION GIVEN. PT UP TO RESTROOM FOR SHOWER WITH LINK TRAINER OPERATOR. PT ABLE TO AMBULATE WITH CANE AND STAND BY ASSIST. BLOOD PRESSURE NOTED TO BE LOW, MD AWARE. DILTIAZEM HELD, MESSAGE SENT TO MD TO MAKE HIM AWARE, AWAITING RESPONSE. LUNG SOUNDS CLEAR. RIGHT LOWER LOB DEMINISHED. PT REPORS OCCATIONAL DRY COUGH. PT 95% ON ROOM AIR. VERY SMALL AMOUTNS OF GENERALIZED EDEMAN NOTED IN BILATERAL LOWER EXTREMITIES, NO SWELLING NOTED IN UPPER EXTREMTIES. PT CONCERND ABOUT CONSTIPATION, BM NOTED YESTERDAY, MEDICAITON GIVEN PER PT REQUEST. BANDAID REMOVED FROM THOROCENTESIS SITE. SITE WNL. NO REDNESS NOTED TO GLUTEAL AREA. PT REMAINS UP TO SHOWER WITH LINK TRAINER OPERATOR, NO ADDITIONAL REQUESTS OR COMPLAINS. CALL LIGHT MARY WALTERS.
--- NOTE | 2021-03-08 09:33 | NUR ---
PT AMBULATED INDEPENDENTLY WITH A CANE TO THE BATHROOM FOR A SHOWER. PT WAS INDEPENDENT WITH ADL'S AND IS NOW IN BED PUTTING ON MAKEUP AND FIXING HER HAIR. CALL LIGHT WITHIN REACH. NO FURTHER NEEDS AT THIS TIME.
--- NOTE | 2021-03-08 10:20 | NUR ---
THIS RN TO ROOM TO CHECK ON PT. PT FINISHED WITH SHOWER. PT REPORTS "I FEEL A LOT BETTER NOW." ALLEVYN TO COCCYX CHANGED. PT DENIES PAIN AND NAUSEA. PT DENIES ADDITIONAL REQUESTS OR COMPLAINTS. PT RESTING ON RIGHT SIDE, SUPPORTED WITH PILLOWS. PT REPORTS SHE SPOKE WITH DR. MARTIN WHO SAID "I MIGHT GET TO GO HOME." BED RAILS UP. CALL LIGHT WITHIN REACH.
--- NOTE | 2021-03-08 10:29 | NUR ---
DR. PARIS STATES TO GIVE LONG ACTING DILTIAZEM, GIVEN ORDERED. PT VISITNG WITH CASE MANAGEMENT. RED/YELLOW/GREEN ZONES OF HEART FAILURE REIVEWED WITH PT. PT DEMONSTRATES UNDERSTANDING STATING SHE IS IN "GREE" TODAY "MAYBE A LITTLE YELLOW BECAUSE I'M TIRED, BUT I HAVEN'T BEEN MOVING MUCH." PT DENIES ADDITIONAL REQUESTS OR COMPLAINTS. CALL LIGHT WITHIN REACH. BED RAILS UP.
--- NOTE | 2021-03-08 11:45 | NUR ---
MEDICATION DUE. THIS RN TO ROOM TO CHECK ON PT. PT RESTING ON RIGHT SIDE IN BED. MEDICATION GIVEN. STAND BY ASSIST WITH CANE UP TO RESTROOM. PT ENCOURAGED TO AMBULATE IN [place], AGREES. STAND BY ASSIST WITH CANE TO AMBULATE X1 LAP IN [place]. PT BACK TO ROOM, UP TO CHAIR FOR LUNCH. NO ADDITONAL REQUESTS OR COMPLAINTS. CALL LIGHT WITHIN REACH.
--- NOTE | 2021-03-08 12:30 | NUR ---
DR. PARIS TO BEDSIDE TO EVALUATE PT. PT'S HEART RATE NOTED TO BE ELEVATED BY PALPABLE PULSE. TELEMETRY PLACED PER DR. PARIS'S ORDERS, AFIB WITH RATE OF 120-150'S NOTED. DR. PARIS UPDATED AND STATES TO GIVE AFTERNOON METROPROLOL NOW, BUT TO GIVE 25MG INSTEAD OF 12.5. ORDERS PLACED. MEDICATION GIVEN. PT RMEAINS UP TO CHAIR. PT UPDATED ON PLAN OF CARE. PT REPORTS SHE FEELS COMFORTABLE WITH STAYING ANOTHER NIGHT. STAND BY ASSIST BACK TO BED. PT POSITIONED ON RIGHT SIDE, SUPPORTED WITH PILLOW. NO ADDITIONAL REQUESTS OR COMPLAINTS. CALL LIGHT WITHIN REACH. BED RAILSUP.
--- NOTE | 2021-03-08 13:27 | NUR ---
PT AWAKE IN THE BED WATCHING THE SNOW FALL. CALL LIGHT WITHIN REACH. WARM BLANKETS GIVEN. NO FURTHER NEEDS AT THIS TIME.
--- NOTE | 2021-03-08 13:32 | NUR ---
THIS RN TO ROOM TO CHECK ON PT. PT RESTING ON LEFT SIDE. PT REPORTS SHE FEELS "MORE RELAXED" NOW AND "LIKE IT'S NOT BEATING SO HARD." HEAR RATE NOW 90-120'S, 108 ON MONITOR AT THIS TIME. PT DENIES PAIN AND NAUSEA. NO ADDITIONAL REQUESTS OR COMPLAINTS. CALL LIGHT WITHIN REACH. BED RAILS UP.
--- NOTE | 2021-03-08 14:59 | NUR ---
AFTERNOON ASSESSMENT DUE. PT RESTING ON RIGHT SIDE, SUPPOTED WITH PILLOWS. PT DENIES PAIN AND NAUSA. HEART RATE NOTED TO BE 70-80'S ON MONITOR IN AFIB RHYTHEM. PT UP TO AMBULATE IN [place] X 1 LAP. HEART RATE INCREASES TO 90-110'S IN AFIB RYTHEM. UPDATED ON PTS PROGRESS. PT BACK TO ROOM. ASSESSMENT DONE. LUNG SOUNDS CLEAR, DEMINISHED IN RIGHT LOWER LOB. PT REMAINS ON ROOM AIR WITH OXGYEN SATURATIONS ABOVE 90%. BOWEL TONES ACTIVE. PT REPORTS SHE HAD A "LARGE RISHI SOFT LIQUID" BOWEL MOVEMENT EARLIER TODAY. EDUCATION DONE WITH PT REGARDING STOOL SOFTENERS AND POSSIBLE HOLDING DOES TONIGHT. PIN POINT PUNCTURE TO RIGHT CHEST WALL, WNL, NO DRAINGE NOTED, WOUND BARILY IDENTIFIABLE. ALLEVYN REMAINS IN PLACE OVER SORE ON COCCYX, LEFT COVERED. PT REPROTS SHE HAS BEEN LYING ON HER SIDES TO DECREASE PRESSURE. PT CURRENTLY LYING ON LEFT SIDE, SUPPORTED WITH PILLOWS. PT DENEIS ADDITIONAL REQUESTS OR COMPLAINTS. CALL LIGHT WITHIN REACH. BED RAILS UP.
--- NOTE | 2021-03-08 15:24 | NUR ---
PT HERE FOR CHF EXACERBATIO, RIGHT SIDED PLEURAL EFFUSION AND AFIB. PT UP WITH STAND BY ASSIST AND CANE IN ROOM, TO CHAIR FOR MEALS AND IN [place] TO AMBULATE. PT TOLERATING 2GM SODIUM RESTRICTED DIET WELL 1600ML FLUID RESTRICTION WITH GOOD INTAKE. SOFT TO LIQUID BOWEL MOVEMENT REPORTED BY PT THIS SHIFT, PT ENCORUAGED TO TAKE FEWER STOOL SOFTENERS. HEART RATE NOTED TO ELEVATE TO 140-150'S WITH ACTIVITY THIS AFTERNOON. PT PLACED BACK ON TELEMETRY MONITORING, ADDITIONAL METOPROLOL GIVEN. MEDICATIONS ORDERS CHANGED BY MD. AFTER MEDICATIONS HEART RATE SLOWS TO 80-90'S AT REST AND 90-110'S WITH AMBULATION. LUNG SOUNDS CLEAR THIS HSIFT, DEMINISHED IN RIGHT LOWER LOBE. PT DENIES FEELING SOF PAIN, NAUSEA AND SHORTNESS OF BREATH. WOUND TO COCCYX IMPROVING, ALLEVYN CHANGED AFTER SHOWER. PT VOIDING QUANTITY SUFFICIENT. PT USES CALL LIGHT AND MAKES NEEDS KNOWN.
--- NOTE | 2021-03-08 16:04 | NUR ---
THIS RN TO ROOM TO CHECK ON PT. PT CONTINUES RESTING ON LEFT SIDE, SUPPORTED WITH PILLOWS. PT DENIES ANY PAIN OR NAUSEA. PT REPROTS HER "BOTTOM" ISN'T SORE WHEN SHE "IS OFF OF IT." PT DENIES FEELINGS OF SHORTNESS OF BREATH, PAIN OR NAUSEA. NO ADDITIONAL REQUESTS OR COMPLAINTS. DINNER ORDER PLACED. CALL LIGHT WITHIN REACH. BED RAILS UP.
--- NOTE | 2021-03-08 17:15 | NUR ---
THIS RN TO ROOM TO CHECK ON PT. PT FINISHED WITH DINNER. PT RESTING ON LEFT SIDE. HEART RATE 100-120'S. PT REPORTS SHE IS "FEELING PRETTY GOOD." PT DENIES FEELINGS OF SHORTNESS OF BREATH, PAIN OR NAUSEA. DR. PARIS UPDATED REGARDING HEART RATE. DR. PARIS STATES HE WILL BE CHANGING EVENING METOPROLOL DOES AND ONCE ORDERS ARE CHANGED TO GIVEN DOES NOW RATHER THAN AT 1999. AWAITING NEW ORDERS. PT RESTING IN BED, BED RAILS UP. CALL LIGHT WITHIN REACH.
--- NOTE | 2021-03-08 18:27 | NUR ---
MEDICATION DUE. THIS RN TO ROOM. PT RESTING ON RIGHT SIDE. PT REPORTS "SORENESS" TO BACKSIDE. ALLEVYN DRESSING REMAINS IN PLACE. NO ADDITIONAL REDNESS NOTED. PT ASSISTED WITH REPOSITONING TO RIGHT SIDE, PILLOWS FOR SUPPORT. PT DECLINS TYELNOL. NO ADDIITONAL REQUESTS OR COMPLAINTS. CALL LIGHT WITHIN REACH. BED RAILS UP.
--- NOTE | 2021-03-08 19:58 | NUR ---
IN ROOM FOR REPORT, PT IS AWAKE IN BED. SHE DENIES NEEDS AT THIS TIME. CALL LIGHT IS CLOSE.
--- NOTE | 2021-03-08 20:28 | NUR ---
IN ROOM TO ASSESS PT AND ADMINISTER MEDICATIONS. SHE DENIES PAIN AT THIS TIME. R THORACENTESIS NORBERTO IS UNCOVERED AND JUST A SMALL PINPRICK. PT REPOSITIONS HER SELF AND HAS A PILLOW UNDER HER HIP AT THIS TIME. PT DENIES SOB. CALL LIGHT IS CLOSE AND PT DENIES FURTHER NEEDS.
--- NOTE | 2021-03-08 23:00 | NUR ---
CHECKED ON PT SHE IS AWAKE IN BED, SHE REQUESTED THE REMAINING AMOUNT OF HER WATER FOR THE NIGHT. PT DENIES FURTHER NEEDS. CALL LIGHT IS CLOSE.
--- NOTE | 2021-03-09 01:22 | NUR ---
PT IS RESTING WITH EYES CLOSED, RR IS EVEN AND UNLABORED. CALL LIGHT IS CLOSE. TELE #10 SHOW IRREGULAR HR IN 70'S.
--- NOTE | 2021-03-09 03:21 | NUR ---
PT CALLED TO USE RESTROOM. SBA WITH CANE TO RESTROOM AND BACK TO BED. PT DENIES SOB WHILE AMBULATING, LUNGS CLEAR. PT VOIDED 300MLS DARK YELLOW URINE. PT DENIES FURTHER NEEDS AT THIS TIME. CALL LIGHT IS CLOSE.
--- NOTE | 2021-03-09 04:43 | NUR ---
PT IS RESTING WITH EYES CLOSED, RR IS EVEN AND NONLABORED. CALL LIGHT IS CLOSE. HR ON TELE IS 70'S IRREGULAR RATE.
--- NOTE | 2021-03-09 06:20 | NUR ---
IN ROOM TO ADMINISTER THYROID MEDICATION. PT DENIES FURTHER NEEDS AT THIS TIME. CALL LIGHT IS CLOSE.
--- NOTE | 2021-03-09 06:37 | NUR ---
PT AMBULATES SBA WITH CANE, SHE DENIES SOB. 2G SODIUM DIET WITH 1600 FLUID RESTRICTION. BP'S RUN SOFT BUT WNL. PT SLEPT ON/OFF THROUGH THE NIGHT.
--- NOTE | 2021-03-09 08:05 | NUR ---
Patient restin in bed, eyes closed, respiration even and non labored. Patient has no distress. Personal supplies and call light within reach.
--- NOTE | 2021-03-09 09:36 | NUR ---
Patient in bed watching tv, no distress. Patient denies chest pain. Patient reports she slept well. Fresh water provided. Encouraged patient to use the call light if she has needs. Patient receptive to plan of care.
[2021-03-09] MEDS ORDERED: DILTIAZEM 24HR240 M1 PO (10:23)
--- NOTE | 2021-03-09 10:27 | NUR ---
Spoke with Etelvina. She states her "heart got away" yesterday. Believes it is better today. Cont. to plan to dc to home when cleared by . Daughter will transport her to home and assist her as needed.
--- NOTE | 2021-03-09 13:21 | OR ---
[facility] [address], [place] [address] Signed DATE OF OPERATION: 03/07/2021 SURGEON: Mary Martin MD PREOPERATIVE DIAGNOSIS: Right pleural effusion, likely related to congestive heart failure (persistent despite diuresis). POSTOPERATIVE DIAGNOSIS: Right pleural effusion, likely related to congestive heart failure (persistent despite diuresis). PROCEDURE: Right thoracentesis. ANESTHESIA: 1% lidocaine. INDICATION: This 89-year-old white woman has been admitted by and care assumed by Dr. Tovar on March 04, 2021. She has a large right pleural effusion noted on CT scan and a small pneumothorax as well. She had no associated trauma to the right side, though she did have a ground level fall at home with persistent left-sided chest wall pain on occasion without left-sided pleural or bony abnormality. She is considered likely to have pleural effusion related to congestive heart failure; she has underlying atrial fibrillation. She has been carefully managed by Dr. Tovar with diuretic therapy and has been weaned off oxygen entirely. However, chest x-ray (yesterday) shows persistent right-sided pleural effusion at least group home up. She has a distant history of smoking, but is not thought likely to have malignancy of the pleural space nor pneumonia to account for a parapneumonic effusion and most likely, the effusion is related to congestive heart failure. Though she is not currently dyspneic in accordance with Dr. Tovar's opinion and my own, thoracentesis may be beneficial to fully re-expand the lung, evaluate the fluid for possible etiology and confirm congestive heart failure basis for it as she nears discharge. Additionally, she has been off her Eliquis now 3 days and thus this may be an optimal time for therapeutic and diagnostic thoracentesis. The risks of bleeding, infection, worsening pneumothorax, and other unforeseen complications were reviewed with her, she understands and wished to proceed. FINDINGS: Fluid was obtained from a rib near the tip of the scapula (likely 7th). There were no Electronically Signed By: MARY MARTIN MD 03/09/21 1321 PATIENT NAME: EL RAMOS OPERATIVE REPORT DATE OF : 32 REPORT #: [id number] PHYSICIAN: MARY MARTIN MD PCP: J LUIS WHITEHEAD DO REPORT IS CONFIDENTIAL AND NOT TO BE RELEASED WITHOUT AUTHORIZATION [facility] [address] [place] [id number] Signed known complications obtaining the fluid and 1 L of clear yellow fluid was obtained without problem. She had no symptoms related to it including at the time of lung expansion. A postprocedure chest x-ray showed good expansion of the lung. No obvious pneumothorax and no known complication. Fluid will be sent for appropriate cytology, chemistries, and culture. DESCRIPTION OF PROCEDURE: At the bedside, the patient with her arms draped over a Rodriguez stand with pillows and support, the tip of the scapula was marked with a pen. The posterior thorax was prepared with a chlorhexidine solution including the thoracentesis catheter kit. Sterile technique including gloves, sterile mask and gown were used. A 1% lidocaine was injected directly over the rib at the level of the tip of the scapula on the right side. Using a multi-fenestrated catheter in the thoracentesis kit, the pleural space was carefully entered and while aspirating on syringe showing a clear straw-colored fluid. The needle was removed and the catheter advanced a bit more. A 3-way stopcock and catheter system was then applied to a vacutainer bottle easily withdrawing without impediment 1 L of clear yellow fluid. An additional syringe was obtained for studies. More fluid likely could have been withdrawn, but we left it at 1 liter thoracentesis at this point. A Band-Aid was applied upon withdrawal of the needle. A postprocedure chest x-ray showed excellent expansion of the lung. No obvious pneumothorax. She tolerated procedure well. There was no evidence of cough or pain during the course of the procedure. MD MATT Carmen/MODL /[id number] cc: Dr. Tino Tovar MD Copies: VISH TOVAR DO Electronically Signed By: MARY MARTIN MD 03/09/21 1321 PATIENT NAME: EL RAMOS OPERATIVE REPORT DATE OF : 31 REPORT #: [id number] PHYSICIAN: MARY MARTIN MD PCP: J LUIS WHITEHEAD DO REPORT IS CONFIDENTIAL AND NOT TO BE RELEASED WITHOUT AUTHORIZATION [address] [address] Signed ~ Electronically Signed By: MARY MARTIN MD 03/09/21 1321 PATIENT NAME: RACHELEL RHODES OPERATIVE REPORT DATE OF : 31 REPORT #: [id number] PHYSICIAN: MARY MARTIN MD PCP: J LUIS WHITEHEAD DO REPORT IS CONFIDENTIAL AND NOT TO BE RELEASED WITHOUT AUTHORIZATION
--- NOTE | 2021-03-09 13:21 | CONS ---
[facility] [address] [place], [place] [address] Signed DATE OF CONSULTATION: 03/04/2021 CONSULTING PHYSICIAN: Mary Martin MD REQUESTING PHYSICIAN: Dr. Chavis. PROBLEM: Large right asymptomatic pleural effusion with small apical pneumothorax. HISTORY OF PRESENT ILLNESS: This 89-year-old white woman is admitted by Dr. Chavis to the intensive care unit with hyperkalemia and a large asymptomatic right pleural effusion. The patient is noted to have longstanding congestive heart failure, normally taking Lasix and potassium supplement. The patient admits to having forgone her Lasix medication several times, but did continue to take her potassium supplement. She presented to the emergency room at approximately 1:30 a.m. with complaints of left-sided chest pain after lifting a turkey. She thought that she had pulled a muscle or something of that sort. She had felt short of breath secondary to that pain. A chest x-ray was performed following physical exam, which showed a very tender left anterior chest reproducing her symptoms. A right pleural effusion was noted, but there was no evidence of infiltrate or pulmonary nodule otherwise. A CT scan was subsequently performed showing no evidence of pulmonary emboli, but a large right pleural effusion and a small apical right pneumothorax of uncertain etiology. Nodular changes of the liver were noted and a 3 mm pulmonary nodule in the left lower lobe was noted as well. The patient was not noted to have any rib fractures on the CT scan. Lab studies that were performed concurrently showed her to be hyperkalemic with a potassium initially of 6.0 and subsequently 6.9. It is now 3.5 at approximately 1:00 p.m. today. Creatinine is 1.20. Additionally noted was a BNP, which was 2417, normal up to 450. Her albumin is 3.5. The patient admits to smoking a number of years ago, but none in many years otherwise. She has no associated hemoptysis, hematemesis, or right-sided chest pain. PAST MEDICAL HISTORY: Includes diastolic heart failure with an ejection fraction of 55% to 60%with associated right ventricular dysfunction, moderate pulmonary hypertension and moderately tricuspid Electronically Signed By: MARY MARTIN MD 03/09/21 1321 PATIENT NAME: EL RAMOS CONSULTATION DATE OF : 31 REPORT #: [id number] PHYSICIAN: MARY MARTIN MD PCP: FRANCO WHITEHEAD DO REPORT IS CONFIDENTIAL AND NOT TO BE RELEASED WITHOUT AUTHORIZATION [facility] [address] [place], [place] [address] Signed regurgitation. She has atrial fibrillation and a history of pulmonary embolism 2 years ago, unprovoked. MEDICATIONS: At admission include Eliquis on the basis of atrial fibrillation and prior emboli. Additional medications include: 1. Synthroid. 2. Metoprolol. 3. Diltiazem. 4. Vitamin D. 5. Lasix. 6. Potassium chloride. 7. Eliquis. SOCIAL HISTORY: She does have a daughter, who tends to her. Her daughter is Kaylah Fields, a patient of mine. I have apparently previously worked with her . She lives in [place]. PHYSICAL EXAMINATION: GENERAL: A very thin white woman, who looks to be in no distress at this time. VITAL SIGNS: Show temperature 97.5, pulse of 90, atrial fibrillation is noted, blood pressure of 109/91. O2 saturation by 2 L nasal cannula oxygen is 96%. NECK: Trachea is midline. I did not see jugular venous distention at this time. She has no hoarseness. CHEST: She has no tachypnea. EXTREMITIES: Lower extremities show mild edema. LABORATORY DATA: Recent lab studies show a white count of 8.2, hematocrit of 40.9, platelets 250,000. Chem profile as previously noted. Creatinine down to 1.20. Coag studies not performed. Serology is negative for coronavirus or influenza of any sort. I reviewed her CT scan with Dr. Chavis and a chest x-ray as well. She has very sizable right pleural effusion and for reasons unclear, a very small tiny apical pneumothorax. The fall she sustained including left chest wall pain would unlikely have caused a fracture-associated pneumothorax; if she had fallen against a closed glottis concurrently, a "blowout" of blood in the right side could have accounted for this, but she has no progressive symptoms at this time. Consideration has been made for right pleural fluid decompression by either thoracentesis or chest tube. Given her particulars regarding her lab studies and so forth, the etiology of her effusion is very probably related to congestive heart Electronically Signed By: MARY MARTIN MD 03/09/21 1321 PATIENT NAME: EL RAMOS CONSULTATION DATE OF : 31 REPORT #: [id number] PHYSICIAN: MARY MARTIN MD PCP: FRANCO WHITEHEAD DO REPORT IS CONFIDENTIAL AND NOT TO BE RELEASED WITHOUT AUTHORIZATION [address] [address] Signed failure. It is unlikely she has true hepatic failure despite some risk factors for it including appearance of nodularity on CT scan, which would imply cirrhosis, though she is not at risk for that from the usual causes. Having reviewed this with Dr. Chavis, we will allow her Eliquis to drift down to a subtherapeutic level anticipating possible right thoracentesis or chest tube as appropriate depending how she is doing. It is notable she is asymptomatic at this time and this represents a pleural effusion related to her CHF, which is highly probable simple resolution of her medication shortcomings and dietary restrictions may allow for resolution of the symptoms related to pleural effusion promptly. Discussed the possibility of chest tube versus thoracentesis. At this point, neither will be undertaken though re-evaluation tomorrow when the effect of Eliquis has improved might be considered. MD MATT Carmen/GLORIAL /[id number] cc: MD Franco Ruiz DO Copies: CHIN CHAVIS MD, ARIAN DO ~ Electronically Signed By: MARY MARTIN MD 03/09/21 1321 PATIENT NAME: EL RAMOS CONSULTATION DATE OF : 31 REPORT #: [id number] PHYSICIAN: MARY MARTIN MD PCP: FRANCO WHITEHEAD DO REPORT IS CONFIDENTIAL AND NOT TO BE RELEASED WITHOUT AUTHORIZATION
== END 2021-03-09 12:35 | disposition home or self-care (01) | DRG 291 ==
LOC: ED 01:03 → CCU 01:04 → ED 01:04 → CCU 06:48 → ED 06:48 → CCU 08:58 → MS 03-06 16:30 → CCU 03-06 16:39 → MS 03-06 16:39
PROVIDERS: ADMIT Internal Medicine; ATTEND Internal Medicine
PROC: 0W993ZZ Drainage of Right Pleural Cavity, Percutaneous Approach (ICD-10-PCS; principal; 2021-03-07)
DX: I50.33 Acute on chronic diastolic (congestive) heart failure (principal); J96.01 Acute respiratory failure with hypoxia; J90 Pleural effusion, not elsewhere classified; I48.20 Chronic atrial fibrillation, unspecified; J93.9 Pneumothorax, unspecified; E03.9 Hypothyroidism, unspecified; E87.5 Hyperkalemia; I27.20 Pulmonary hypertension, unspecified; K74.60 Unspecified cirrhosis of liver; I07.1 Rheumatic tricuspid insufficiency; H40.9 Unspecified glaucoma; Z96.653 Presence of artificial knee joint, bilateral; Z88.8 Allergy status to other drugs, medicaments and biological substances; Z90.710 Acquired absence of both cervix and uterus; Z79.01 Long term (current) use of anticoagulants; Z79.899 Other long term (current) drug therapy; Z86.711 Personal history of pulmonary embolism
CPT/HCPCS: 71045; 71046; 71260; 80048; 80053; 82945; 83615; 83735; 83880; 83986; 84155; 84157; 84484; 85025; 85379; 89051; 90694; 93005; 93010; 93306; 94640; 94667; 94668; 94760; 97162; G0378; J0610; J1170; J1815; J1940; J2405; Q9967; U0003